=== PATIENT | female | born 1965 | race Two or more races ===

== ENCOUNTER → 2020-09-02 08:30 | Outpatient (REF) | payer MEDICARE, MEDICAID, SELFPAY ==
--- NOTE | 2020-09-02 | NM_ITS ---
EXAMINATION: RADIONUCLIDE SOLID FOOD GASTRIC EMPTYING 4-HOUR STUDY CLINICAL INFORMATION: Epigastric pain. COMPARISON: No previous gastric emptying study is available for comparison. TECHNIQUE: A standard meal consisting of 4 oz of Egg Beaters brand tagged with 980 microcuries Tc-99m Sulfur Colloid, 8 oz water and 2 slices of toast with jelly was administered orally to the patient. Images were obtained using a dual head gamma camera in the anterior and posterior projections over of the stomach immediately post ingestion and at hourly intervals up to 3 hours post ingestion. Images were not obtained at 4 hours due to the minimal retention at 3 hours. The anterior and posterior counts at each time interval were averaged using the geometric mean and expressed as percentage of the immediate post ingestion counts. FINDINGS: There is good visualization of activity in the stomach immediately post ingestion. As the study progresses, there is good clearance of activity from the stomach and visualization of progressively increasing small bowel activity. By the end of the study, there is almost no retention noted in the stomach. Retention in the stomach at each time interval was: 1 hour 43% (normal 37%-90%) 2 hours 27% (normal 30%-60%) 3 hours 5% 4 hours (Not Obtained) (normal 0%-10%) IMPRESSION: Normal solid food gastric emptying study.
== END ==
LOC: HO.NUCMED 08:30
PROVIDERS: Visit Provider Internal Medicine Gastroenterology
DX: R10.13 Epigastric pain (principal)
CPT/HCPCS: 78264; A9541

== ENCOUNTER → 2020-09-06 08:20 | Outpatient (BNVA) | payer OTHER, SELFPAY | PROVIDERS: PCP Internal Medicine; Referring Provider Internal Medicine; Visit Provider Orthopaedic Surgery | DX: S83.231D Complex tear of medial meniscus, current injury, right knee, subsequent encounter (principal); S83.271D Complex tear of lateral meniscus, current injury, right knee, subsequent encounter; M23.8X1 Other internal derangements of right knee | CPT/HCPCS: 99214 ==

== ENCOUNTER 2020-09-15 06:44 | Day surgery (SDC) | payer OTHER, SELFPAY ==
--- NOTE | 2020-09-14 14:14 | HO.ANESPROP2 ---
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 Diabetes mellitus, type II History of hepatitis C History of transesophageal echocardiography (KATIA) HTN (hypertension) CAROL (obstructive sleep apnea) Palpitations Smoker Smokers' cough Vitamin D deficiency Family History Family History Father Pancreatic cancer Mother Breast cancer Hypertension Diabetes Surgical History Surgical History H/O tricuspid valve repair History of appendectomy History of cardiac cath History of cholecystectomy History of colonoscopy History of coronary artery bypass surgery History of tonsillectomy History of tubal ligation Social History Social History Alcohol intake: never Smoking Status: Current every day smoker Tobacco Type: Cigarette Years Smoked: 44 Advance Directives: No Current occupational status: unemployed 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 Meds Allergies Allergy/AdvReac Type Severity Reaction Status Date / Time varenicline [From CHANTIX] Allergy Unknown RASH Unverified 08/04/20 18:49 Home Medications Medication Instructions Recorded Confirmed Type albuterol sulfate 90 mcg/actuation 2 puff INHALATION Q4-6H PRN 08/17/20 History aerosol inhaler cholecalciferol (vitamin D3) 125 125 mcg PO DAILY 08/17/20 History mcg (5,000 unit) capsule duloxetine 20 mg capsule,delayed 20 mg PO BID 08/17/20 History release fluticasone propionate 110 1 puff INHALATION BID 08/17/20 History mcg/actuation HFA aerosol inhaler gabapentin 100 mg capsule 100 mg PO BEDTIME 08/17/20 History insulin glargine U-300 conc 300 60 unit SUBCUT DAILY 08/17/20 History unit/mL (3 mL) subcutaneous pen insulin lispro 100 unit/mL 5 unit SUBCUT TID 08/17/20 History subcutaneous cartridge lisinopril 10 mg tablet 10 mg PO DAILY 08/17/20 History lubiprostone 24 mcg capsule 24 mcg PO BID 08/17/20 History metoprolol succinate 100 mg 100 mg PO DAILY 08/17/20 History tablet,extended release 24 hr rosuvastatin 20 mg tablet 20 mg PO DAILY 08/17/20 History insulin lispro [Humalog U-100 15 unit SUBCUT TID 09/15/20 09/15/20 History Insulin] Exam Exam Date and Time: September 14, 2020 1414 Pertinent Lab Results Pertinent Lab Results: Laboratory Tests 12/17/19 12/17/19 08/16/20 08:05 08:05 14:44 WBC 9.0 Hgb 14.4 Hct 42.8 Plt Count 188 D Sodium 141 Potassium 4.9 Chloride 107 BUN 25 H Creatinine 1.64 H Narrative Narrative: EKG 12/25/19: SB, old inferior infarct ECHO 05/2020: Nml LV sys and diast function with mild LVH, Good Tricuspid valve repair, Nml RV sys pressure, No pericardial effusion Assessment and Plan Assessment Anesthesia Assessment: Chart Reviewed Documented by User: Anjel Dias MD 09/15/20 07:15 [facility] Past Medical History Medical History Atherosclerotic cardiovascular disease Bronchial asthma CAD (coronary artery disease) Chronic kidney disease 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 Diabetes mellitus, type II History of hepatitis C History of transesophageal echocardiography (KATIA) HTN (hypertension) CAROL (obstructive sleep apnea) Palpitations Smoker Smokers' cough Vitamin D deficiency Family History Family History Father Pancreatic cancer Mother Breast cancer Hypertension Diabetes Surgical History Surgical History H/O tricuspid valve repair History of appendectomy History of cardiac cath History of cholecystectomy History of colonoscopy History of coronary artery bypass surgery History of tonsillectomy History of tubal ligation Social History Social History Alcohol intake: never Smoking Status: Current every day smoker Tobacco Type: Cigarette Years Smoked: 44 Advance Directives: No Current occupational status: unemployed 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 Meds Allergies Allergy/AdvReac Type Severity Reaction Status Date / Time varenicline [From CHANTIX] Allergy Unknown RASH Unverified 08/04/20 18:49 Home Medications Medication Instructions Recorded Confirmed Type albuterol sulfate 90 mcg/actuation 2 puff INHALATION Q4-6H PRN 08/17/20 History aerosol inhaler cholecalciferol (vitamin D3) 125 125 mcg PO DAILY 08/17/20 History mcg (5,000 unit) capsule duloxetine 20 mg capsule,delayed 20 mg PO BID 08/17/20 History release fluticasone propionate 110 1 puff INHALATION BID 08/17/20 History mcg/actuation HFA aerosol inhaler gabapentin 100 mg capsule 100 mg PO BEDTIME 08/17/20 History insulin glargine U-300 conc 300 60 unit SUBCUT DAILY 08/17/20 History unit/mL (3 mL) subcutaneous pen insulin lispro 100 unit/mL 5 unit SUBCUT TID 08/17/20 History subcutaneous cartridge lisinopril 10 mg tablet 10 mg PO DAILY 08/17/20 History lubiprostone 24 mcg capsule 24 mcg PO BID 08/17/20 History metoprolol succinate 100 mg 100 mg PO DAILY 08/17/20 History tablet,extended release 24 hr rosuvastatin 20 mg tablet 20 mg PO DAILY 08/17/20 History insulin lispro [Humalog U-100 15 unit SUBCUT TID 09/15/20 09/15/20 History Insulin] Exam Airway Mallampati Class: II TM Dist: >3cm Neck ROM: Full Denture: Upper Loose/Missing/Broken Teeth: No Heart: rrr Lungs: nl Other: ao Assessment and Plan Assessment Anesthesia Assessment: Anesthesia Plan Discussed and Chart Reviewed Final Anesthetic Review NPO: Yes ASA Class: III Final Preanesthetic Review: No Changes in Pt Med Stat, Meds/Allgs Chart Reviewed, Consent Obtained/Reviewed and Anes Risks/Benef Reviewed Patient Risk: Intermediate Procedure Risk: Low Anesthetic Plan Anesthetic Plan: GA Disposition: Standard PACU
[2020-09-15] VITALS (12 sets, daily range): BP systolic 106–147; BP diastolic 67–82; PULSE 60–93; RESP 16; TEMP 35.8–36.3; O2SAT 92–99; BMI 39.3
--- NOTE | 2020-09-15 06:45 | MHC.SHP ---
Pre-Procedural Eval Section A The patient is an INPATIENT: No Changes since office visit: No Cold of Flu in the past 2 weeks, No New Medical Problems, No Changes in Medication and No Patient answered all questions The History & Physical has been completed within 30 days and I have reviewed it.: Yes Section B Chief Complaint: Medial and lateral Minicus tear of right knee Allergies: Allergies Allergy/AdvReac Type Severity Reaction Status Date / Time varenicline [From CHANTIX] Allergy Unknown RASH Unverified 08/04/20 18:49 Plan Patient has been examined and remains a candidate for the planned procedure
[2020-09-15 06:58] LABS: Glucose, Whole Blood 318 mg/dL (60-115)
--- NOTE | 2020-09-15 09:09 | PM.PRCOR ---
Brief Operative Note Date of procedure: 09/15/20 Pre-op diagnosis: ACL TEAR WITHMEDIAL AND LATERAL MENISCAL TEAR LEFT KNEE Post-op diagnosis: other (SAME WITH OSTEOARTHRITIS) Procedure: ARTHROSCOPIC SURGERY LEFT KNEE Anesthesia: GLMA Surgeon: Ally Dietz Estimated blood loss (mL): 0 Pathology: none sent Condition: stable Disposition: PACU
[2020-09-15] MEDS: oxyCODONE HCl Immed Release 5 MG TABLET PO ×2 (09:20→10:18)
[2020-09-15] MEDS: fentaNYL citrate/PF 100 MCG/2 ML VIAL 25 MCG IVPUSH ×2 (09:52→09:58)
--- NOTE | 2020-09-15 10:22 | HO.POSTANES ---
Post Anesthesia Evaluation Post Anesthesia Evaluation Vital Signs: Vital Signs Temp Pulse Resp BP Pulse Ox 09/15/20 10:00 64 16 109/72 95 09/15/20 09:58 16 09/15/20 09:52 16 09/15/20 09:45 67 16 143/67 H 96 09/15/20 09:30 60 16 129/71 95 09/15/20 09:15 67 16 128/72 96 09/15/20 09:10 70 16 147/81 H 95 09/15/20 09:05 69 16 135/77 92 09/15/20 09:00 96.5 F L 68 16 125/81 99 09/15/20 06:59 97 F 93 16 106/73 97 Anesthesia: General LMA Mental Status: Awake Pain Control: Satisfactory Nausea/Vomiting: None Hydration: Adequate Anesthesia-Related Issues: No Anes. Related Issues
--- NOTE | 2020-09-16 16:42 | OP_ITS ---
SURGEON: Ally Dietz MD PREOPERATIVE DIAGNOSIS: Anterior cruciate ligament tear with associated medial and lateral meniscal tears of the left knee. POSTOPERATIVE DIAGNOSIS: 1. Complex tearing of posterior horn of medial meniscus, left knee. 2. Complex tearing of posterior horn of lateral meniscus, left knee. 3. Anterior cruciate ligament tear, left knee. 4. Grade 3 injury, medial femoral condyle with grade 3 injury, tibial plateau medially; grade 4 injury, femoral sulcus and medial aspect anterior compartment, left knee. PROCEDURE PERFORMED: ESTIMATED BLOOD LOSS: COMPLICATIONS: ANESTHESIA: ASSISTANTS: SPECIMENS: PROCEDURES PERFORMED: 1. Partial medial meniscectomy, left knee. 2. Partial lateral meniscectomy, left knee. 3. Debridement of anterior cruciate ligament, left knee. 4. Debridement, left knee. CLINICAL NOTE: This lady who has had long-term problems with instability and pain and discomfort and lack of range of motion involving her left knee, comes in today with ongoing pain and discomfort that has failed nonoperative management. Therefore, after explaining the risks, benefits, and alternatives and answering her questions, it was mutually agreed upon to carry out the following procedure. MOTION: She has full range of motion. STABILITY. She has positive Cori and pivot shift. Collateral ligaments intact. DESCRIPTION OF PROCEDURE: PREPARATION: GA, standard technique, tourniquet to 300 mmHg for 20 minutes. INCISION: Superolateral, inferolateral, inferomedial, and stab incisions. SURGICAL TIME-OUT: The patient was identified, procedure confirmed, site confirmed. Medical analogy and history were reviewed. No preop antibiotics. No DVT prophylaxis. All other items were discussed and agreed upon. SYNOVIUM: Normal. SYNOVIAL FLUID: Clear. MEDIAL COMPARTMENT: There was complex tearing of the posterior horn of the meniscus including a piece that was split underneath the medial segment. This was all resected using a combination of handheld cutters and power shaver until there was no unstable portions of the meniscus and it had been contoured into a C-shape. In addition, there was grade 3 injury of the medial femoral condyle, which was debrided. There was grade 2, small area of grade 3 injury to the tibial articular surfaces. INTERCONDYLAR NOTCH: There was stump and scarring from the previous ACL tear. The PCL was intact. The ACL was debrided. LATERAL COMPARTMENT: The lateral meniscus had a complex tearing involving the posterior as well as the medial portion of the meniscus. This was resected using a combination of handheld cutters and power shaver to stable meniscus. The lateral femoral condyle was intact. The tibial articular surface had grade 2 fraying. The popliteus tendon was intact. ANTERIOR COMPARTMENT: Medial and lateral gutters clear. Suprapatellar pouch was clear. The patella itself had some grade 2 to 3 injury in the middle and medial facet. The femoral sulcus had some grade 2 to 3 femoral sulcus injury, but as extended on to the anterior aspect of the medial portion of the condyle, there was grade 3 with areas of grade 4 injury. This was all debrided off the articular cartilage and redundant synovial tissue. CLOSURE: 50:50 mix of 0.75% Marcaine with epinephrine and normal saline was injected into knee for a total of 30 mL. Steri-Strips and sterile dressing were then applied. RECOMMENDATIONS: 1. Restore motion strength. 2. Resume activity as tolerated. 3. Discharge today with prescription for Tylenol No. 3, 20 tablets. 4. Follow up in the office in 10 days' time. MD KARLO Salter/JESSICA / [id number]
--- NOTE | 2020-10-12 18:10 | OP_ITS ---
SURGEON: Ally Dietz MD PREOPERATIVE DIAGNOSIS: Anterior cruciate ligament deficient, right knee with medial meniscal tear. POSTOPERATIVE DIAGNOSIS: PROCEDURE PERFORMED: Debridement of right knee. ESTIMATED BLOOD LOSS: COMPLICATIONS: ANESTHESIA: ASSISTANTS: SPECIMENS: POSTOPERATIVE DIAGNOSES: 1. Anterior cruciate ligament tear, right knee with associated medial and lateral meniscal tear. 2. Osteoarthritis, right knee. CLINICAL NOTE: This lady has had ongoing problems with pain and discomfort involving her knee. She has failed nonoperative management. Investigations demonstrated that she likely had an ACL tear as well as meniscus pathology, and therefore, after explaining the risks, benefits, and alternatives and answering all her questions, it was mutually agreed upon to carry out the following procedure. MOTION: Full range of motion. STABILITY: Positive Cori, mild pivot shift. DESCRIPTION OF PROCEDURE: PREPARATION: GA, standard technique, tourniquet to 300 mmHg for 23 minutes. SURGICAL TIME-OUT: The patient was identified, procedure confirmed, site confirmed. Medical analogy and history reviewed. Preoperative antibiotics were given. Standard DVT prophylaxis was in place. All other items were discussed and agreed upon. INCISION: Superolateral, inferolateral, inferomedial, stab incisions. SYNOVIUM: Normal. SYNOVIAL FLUID: Clear. MEDIAL COMPARTMENT: There was complex tear and posterior horn of medial meniscus resected using a combination of handheld cutters and power shaver to stable meniscus. There was grade 3 fraying of the medial femoral condyle and this was debrided. The articular surface was on the tibial side shows some grade 2 wear as well. INTERCONDYLAR NOTCH: ACL was obviously torn. The stump was debrided. The PCL was intact. LATERAL COMPARTMENT: There was some small areas of grade 3 injury of the lateral femoral condyle. There was grade 2 softening of the tibial femoral condyle. There was complex tearing on the inner edge of the lateral meniscus, which was resected. ANTERIOR COMPARTMENT: Medial and lateral gutters clear. Suprapatellar pouch clear. There was grade 2 to 3 injury of the femoral sulcus as well as grade 2 to 3 injury of the patella. This was all debrided. CLOSURE: 50:50 mixture of 0.75% Marcaine with epinephrine and normal saline to a total of 30 mL was injected into the knee. Steri-Strips and sterile dressing were then applied. RECOMMENDATIONS: 1. Restore motion strength. 2. Resume activity as tolerated. 3. Discharge today with prescription for Tylenol No.3, 20 tablets. 4. Follow up in the office in 10 days' time. MD KARLO Salter/JESSICA / [phone]
== END 2020-09-15 10:51 | disposition home or self-care (01) ==
PROVIDERS: PCP Internal Medicine; Visit Provider Orthopaedic Surgery
PROC: (CPT 29870; principal; 2020-09-15 08:40)
DX: S83.231A Complex tear of medial meniscus, current injury, right knee, initial encounter (principal); S83.271A Complex tear of lateral meniscus, current injury, right knee, initial encounter; S83.511A Sprain of anterior cruciate ligament of right knee, initial encounter; M17.0 Bilateral primary osteoarthritis of knee; X58.XXXA Exposure to other specified factors, initial encounter; Y93.9 Activity, unspecified; Y92.9 Unspecified place or not applicable; Y99.8 Other external cause status; I25.10 Atherosclerotic heart disease of native coronary artery without angina pectoris; J45.909 Unspecified asthma, uncomplicated; E11.22 Type 2 diabetes mellitus with diabetic chronic kidney disease; I12.9 Hypertensive chronic kidney disease with stage 1 through stage 4 chronic kidney disease, or unspecified chronic kidney disease; N18.9 Chronic kidney disease, unspecified; G47.33 Obstructive sleep apnea (adult) (pediatric); F17.210 Nicotine dependence, cigarettes, uncomplicated; Z79.4 Long term (current) use of insulin; Z79.899 Other long term (current) drug therapy; Z79.51 Long term (current) use of inhaled steroids; Z86.19 Personal history of other infectious and parasitic diseases; Z90.49 Acquired absence of other specified parts of digestive tract
CPT/HCPCS: 29880; 29888; 82947; J0131; J0171; J2250; J2405; J3010

== ENCOUNTER → 2020-09-29 09:44 | Outpatient (BNVA) | payer OTHER, SELFPAY | PROVIDERS: PCP Internal Medicine; Referring Provider Internal Medicine; Visit Provider Physician Assistant | DX: M23.8X1 Other internal derangements of right knee (principal); M17.11 Unilateral primary osteoarthritis, right knee; S83.271D Complex tear of lateral meniscus, current injury, right knee, subsequent encounter; Z98.890 Other specified postprocedural states | CPT/HCPCS: 99212 ==

== ENCOUNTER → 2020-10-27 10:51 | Outpatient (BNVA) | payer OTHER, SELFPAY | PROVIDERS: PCP Internal Medicine; Visit Provider Physician Assistant | DX: M23.8X1 Other internal derangements of right knee (principal); M17.11 Unilateral primary osteoarthritis, right knee | CPT/HCPCS: 99212 ==

== ENCOUNTER 2020-11-01 14:00 | Outpatient (RCR) | payer OTHER, SELFPAY ==
--- NOTE | 2020-10-19 15:16 | MHC.PT.EP ---
[facility] [place] [facility] [place] [facility] [place] Office [address] [place] Burleson [address] [phone] F: [phone] F: [phone] F: [phone] F: [phone] Physical Therapy Plan of Care Date of Evaluation: 10/19/20 Date of Surgery: Diagnosis: complex tear of lateral meniscus, current injury, right knee Assessment: 55 y/o F s/p R knee arthroscopic debridement 09/06/2020. States her knee continues to hurt even after the surgery and she has pain, feeling of patella instability, and difficulty with rolling in bed, transitioning in chairs, walking, and stairs (step to pattern). She ambulates with a Thuasne brace and one axillary crutch. Of note, pt with PMH of HTN, CABG, DM and states she has patella subluxations often. Examination shows decreased knee AROM, decreased knee strength, hypermobility B patella, increased pain, and impaired gait pattern. Recommend PT 2x/week for 5 weeks to address impairments, implement HEP, and optimize functional mobility. Frequency and Duration: The patient will be seen 2x/week for 5 weeks Short Term Goals: 3 weeks: 1. I with HEP 2. Improve R knee AROM 0-115 3. Ambulate with no AD x 500' [employer] Assistant Goals: 5 weeks: 1. I with HEP and self management of sx 2. Pt will ascend/descend stairs in step through pattern and one rail 3. Pt will be able to ambulate with LRAD > 30 minutes and pain < 3/10 (IR: 2min) Treatment Plan: Modalities to reduce pain, spasms and effusion. Manual therapy to restore motion and function. Therapeutic exercise to improve strength and flexibility. Neuromuscular re-education for posture and balance. Therapeutic activities to return to functional activities of daily living. Please sign and return to therapist. Thank you for your referral.
--- NOTE | 2020-12-13 14:40 | MHC.PT.DC ---
[facility] [place] [facility] [place] Office [place] Office [address] [place] Burleson [address] [facility] [phone] F: [phone] F: [phone] F: [phone] F: [phone] Physical Therapy Discharge Report Diagnosis: complex tear of lateral meniscus, current injury, right knee Date of Surgery: Date of Evaluation: 10/19/20 Date of Discharge: 12/13/20 Treatments to Date: 3 Cancellations to Date: 5 No Shows to Date: 0 Discharge Status: Visit Non-compliance Discharge Summary: Pt d/c secondary to noncompliance with scheduling policy Electronically signed by: Jami Melendrez PT Please sign and return to therapist. Thank you for your referral.
== END 2020-12-13 14:41 | disposition other institution (70) ==
LOC: HO.PT 14:00
PROVIDERS: PCP Internal Medicine; Visit Provider Physician Assistant
DX: S83.271D Complex tear of lateral meniscus, current injury, right knee, subsequent encounter (principal)
CPT/HCPCS: 97110; 97140; 97162; 97530

== ENCOUNTER → 2020-11-15 14:29 | Outpatient (BNVA) | payer OTHER, SELFPAY | PROVIDERS: PCP Internal Medicine; Visit Provider Orthopaedic Surgery | DX: M25.561 Pain in right knee (principal) | CPT/HCPCS: 99212 ==

== ENCOUNTER → 2021-03-23 11:49 | Outpatient (BNVA) | payer OTHER, SELFPAY | PROVIDERS: PCP Internal Medicine; Referring Provider Internal Medicine; Visit Provider Nurse Practitioner Family | DX: R07.89 Other chest pain (principal); I25.10 Atherosclerotic heart disease of native coronary artery without angina pectoris; I10 Essential (primary) hypertension; Z95.1 Presence of aortocoronary bypass graft; Z98.890 Other specified postprocedural states | CPT/HCPCS: 93005; 99212 ==

== ENCOUNTER → 2021-05-02 09:18 | Outpatient (REF) | payer OTHER, SELFPAY ==
--- NOTE | ~2021-05-02 | NM_ITS ---
Myocardial perfusion study Indication: Chest pain to evaluate for myocardial ischemia Technique: The patient was brought in for a Lexiscan perfusion study on 05/02/2021. Patient performed low-level exercise and was injected 0.4 mg of Lexiscan intravenously. Within a minute of injection, 45 mCi of sestamibi was given intravenously. Images were obtained using the SPECT gamma camera interlaced with the gating device. Images were obtained in supine position. Resting perfusion study was performed on 05/03/2021. Patient was administered 45 mCi of sestamibi intravenously at rest. Images were then obtained in supine position. Images obtained with and without CT attenuation. Total DLP 179 mGy-cm. Images were processed with the software and compared side to side in short axis, horizontal long axis and vertical long axis views. Findings: The stress perfusion study showed nonattenuated images show mildly reduced uptake in the apex of the LV myocardium. Remainder of the LV myocardium is normally perfused. There is suggestion of hypertrophy. Attenuation corrected images show normal uptake of radiotracer in all segments of LV myocardium.. The gated study shows normal LV systolic function with calculated LVEF of 71%. LV cavity is normal in size. The gated study shows normal systolic wall thickening and contraction of segments. Resting study shows both attenuated as well as nonattenuated images show normal uptake of radiotracer in all segments of LV myocardium. Gating at rest reveals normal systolic wall motion with ejection fraction at 58%. The findings are consistent with attenuated corrected images show normal uptake of radiotracer in all segments myocardium.. NM/NM marguerite perf SPECT rest & str Impression: 1. Myocardial perfusion imaging study shows likely normal myocardial perfusion 2. Gated LVEF is 71% 3. Transient ischemic dilatation not present EKG is nondiagnostic for ischemia
--- NOTE | 2021-05-02 09:21 | CA_ITS ---
Acquisition Time: 2021-05-02 10:41:48 Total Exercise Time: 00:02:00 Test Indications: CP, SOB P[ALPITATIONS, SYNCOPE Medications: SEE CHART Protocol: LEXISCAN Max HR: 107 BPM 64% of Pred: 165 BPM Max BP: 132/082 mmHG Max Work Load: 1.0 METS Pharmacological stress test with Lexiscan injection, while sitting and kicking her left leg, with shortness of breath and mid chest pain post injection, without arrythmia, with normotensive response to injection, with nondiagnostic EKG for ischemia. In recovery she reported nausea , ongoing shortness of breath and chest pain that was treated with Aminophylline 75mg IVP to reverse Lexiscan with resolution of symptoms. Nuclear images pending. Test reviewed with Dr Hurst. Referred By: Barbara Cherry Overread By: BARBARA CHERRY
== END ==
LOC: HO.CARD 09:18
PROVIDERS: Visit Provider Nurse Practitioner Family
DX: R07.89 Other chest pain (principal)
CPT/HCPCS: 78452; 93017; A9500; J0280; J2785

== ENCOUNTER → 2021-05-11 14:22 | Outpatient (BNVA) | payer OTHER, SELFPAY | PROVIDERS: PCP Internal Medicine; Referring Provider Internal Medicine; Visit Provider Internal Medicine | DX: I25.10 Atherosclerotic heart disease of native coronary artery without angina pectoris (principal); I10 Essential (primary) hypertension; E11.8 Type 2 diabetes mellitus with unspecified complications; F17.200 Nicotine dependence, unspecified, uncomplicated; Z95.1 Presence of aortocoronary bypass graft; Z98.890 Other specified postprocedural states | CPT/HCPCS: 99212 ==

== ENCOUNTER → 2021-08-29 15:12 | Outpatient (BNVA) | payer OTHER, SELFPAY | PROVIDERS: PCP Internal Medicine; Referring Provider Internal Medicine; Visit Provider Nurse Practitioner Family | DX: R07.89 Other chest pain (principal); I10 Essential (primary) hypertension; Z95.1 Presence of aortocoronary bypass graft; Z98.890 Other specified postprocedural states | CPT/HCPCS: 99212 ==

== ENCOUNTER 2021-10-23 08:47 | Outpatient (REF) | payer OTHER, SELFPAY ==
--- NOTE | ~2021-10-23 | XR_ITS ---
EXAMINATION: XR KNEE, BILATERAL XR KNEE, RIGHT CLINICAL INFORMATION: Pain COMPARISON: 05/24/2020 TECHNIQUE: AP standing view of both knees. Lateral and sunrise views of the right knee. FINDINGS: Right knee: No fracture or subluxation. Mild medial compartment joint space narrowing. Small marginal osteophytes at the medial and patellofemoral compartments. Small joint effusion noted. Left knee: No acute fracture or subluxation. Mild medial compartment joint space narrowing. XR/XR knee RT 2V IMPRESSION: Mild degenerative changes of the right knee greatest at the medial compartment with small joint effusion. Mild medial compartment joint space narrowing of the left knee, similar to prior.
--- NOTE | ~2021-10-23 | XR_ITS ---
EXAMINATION: XR KNEE, BILATERAL XR KNEE, RIGHT CLINICAL INFORMATION: Pain COMPARISON: 05/24/2020 TECHNIQUE: AP standing view of both knees. Lateral and sunrise views of the right knee. FINDINGS: Right knee: No fracture or subluxation. Mild medial compartment joint space narrowing. Small marginal osteophytes at the medial and patellofemoral compartments. Small joint effusion noted. Left knee: No acute fracture or subluxation. Mild medial compartment joint space narrowing. XR/XR knee standing BI IMPRESSION: Mild degenerative changes of the right knee greatest at the medial compartment with small joint effusion. Mild medial compartment joint space narrowing of the left knee, similar to prior.
== END 2021-10-23 08:48 | disposition home or self-care (01) ==
LOC: HO.HOSX 08:47
PROVIDERS: Visit Provider Orthopaedic Surgery
DX: M17.31 Unilateral post-traumatic osteoarthritis, right knee (principal); E11.8 Type 2 diabetes mellitus with unspecified complications; Z95.1 Presence of aortocoronary bypass graft
CPT/HCPCS: 73560; 73565; 99212

== ENCOUNTER 2021-10-31 13:57 | Outpatient (REF) | payer OTHER, SELFPAY ==
[2021-10-31 15:02] LABS: Estimated Average Glucose 183 mg/dL
== END 2021-10-31 13:58 | disposition home or self-care (01) ==
LOC: HO.LAB 13:57
PROVIDERS: PCP Internal Medicine; Visit Provider Orthopaedic Surgery
DX: Z01.812 Encounter for preprocedural laboratory examination (principal)
CPT/HCPCS: 36415; 83036

== ENCOUNTER → 2021-11-06 14:08 | Outpatient (REF) | payer OTHER, SELFPAY ==
--- NOTE | 2021-11-06 14:11 | CA_ITS ---
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 The visually estimated ejection fraction is between 55-60%. - s/p tricuspid valve repair. Annular ring present, but not well seen. Mean gradient across the tricuspid valve 1-2mmHg. Overall, normal function. - There is a small loculated pericardial effusion overlying the right atrium. Findings Procedure Information Contrast agent, definity, is being given per protocol without apparent complications. Left Ventricle Normal left ventricular cavity size. There is mildly increased left ventricular wall thickness. The left ventricular systolic function is normal. The visually estimated ejection fraction is between 55-60%. There is no evidence of regional wall motion abnormalities. E/E prime ratio is between 8 and 15 consistent with indeterminate filling pressures. Evidence suggests grade I (mild) diastolic dysfunction. Right Ventricle The right ventricle was not well visualized. Normal right ventricular cavity size. Atria Both atria are normal in size. Aortic Valve The aortic valve was not well visualized. There is no aortic valve stenosis. There is no aortic valve regurgitation. Mitral Valve The mitral valve appears normal. There is trace mitral valve regurgitation. There is no mitral valve stenosis. Pulmonic Valve The pulmonic valve was not well visualized. Tricuspid Valve There is trace tricuspid valve regurgitation. The pulmonary artery systolic pressure is normal. s/p tricuspid valve repair. Annular ring present, but not well seen. Mean gradient across the tricuspid valve 1-2mmHg. Overall, normal function. Great Vessels The aortic annulus, sinuses of valsalva, and asc aorta are normal in size. Venous The inferior vena cava is normal in size and collapses greater than 50% with inspiration. Pericardium/Pleural There is a small loculated pericardial effusion overlying the right atrium. There are no definitive echocardiographic findings of tamponade physiology. Prior Study Comparison No significant change compared to prior study dated: 06/08/2020. (pericardial effusion described in prior studies). Measurements 2D Linear Measurements IVSd: 1.38 0.6-0.9/0.6-1.0 cm LVIDd: 4.38 3.9-5.3/4.2-5.9 cm LVIDd Index: 1.99 2.4-3.2/2.2-3.1 cm/m2 LVIDs: 2.87 2.0-3.6 cm LVPWd: 1.26 0.7-1.1 cm Ao Root: 3.20 2.1-3.5 cm LA Diam: 4.20 2.7-3.8/3.0-4.0 cm LAIDs Index: 1.91 1.5-2.3 cm/m2 LV Mass: 272.40 67-162/88-224 g LV Mass Index: 123.82 43-95/49-115 g/m2 LVOT Diam: 2.30 3.0+(-)1.3 cm 2D Systolic Function EF 4C: 60.80 >55% EF 2C: 50.00 >55% EF BiP: 53.40 >55% Mitral Valve MV Pk E: 0.76 MV PK A: 0.63 MV Decel Time: 182.00 E/A: 1.20 E'Lateral: 9.90 E'Medial: 4.68 E/E' Med: 16.30 E/E' Lat: 7.70 PHT: 53.00 MVA PHT: 4.15 Decel Loving: 4.19 Aortic Valve AoV Pk Evans: 1.24 AoV Mn Evans: 0.78 AoV VTI: 0.30 AoV Pk Grad: 6.00 Aov Mn Grad: 3.00 SARMAD Cont.VTI: 2.45 LVOT LVOT Pk Evans: 0.67 LVOT Mn Evans: 0.42 LVOT VTI: 0.18 LVOT Pk Grad: 2.00 LVOT Mn Grad: 1.00 LVOT Diam: 2.30 LVOT Area: 4.15 Diastolic Function MV Pk E: 0.76 MV Pk A: 0.63 E/A: 1.20 E'Medial: 4.68 E/E' Med: 16.30 E' Laterial: 9.90 E/E' Lat: 7.70 Tricuspid Valve TV Pk Evans: 1.03 TV Mn Evans: 0.56 TV Pk Grad: 4.00 TV Mn Grad: 2.00 TR Pk Evans: 2.03 TR Pk Grad: 16.00 Great Vessels Aorta Ao Root-2D: 3.20 2.0-3.7 cm Ao Asc: 3.20 2.1-3.4 cm Pulmonary Valve PV Pk Evans: 1.05 Peak PV Grad: 4.00 Updated in Other Vendor System with Status of Final Jeffry Hurst MD electronically signed on 11/08/2021 4:33:15 PM with status of Final
== END ==
LOC: HO.CARD 14:08
PROVIDERS: Visit Provider Clinical Nurse Specialist Psychiatric/Mental Health, Child & Adolescent
DX: Z98.890 Other specified postprocedural states (principal)
CPT/HCPCS: 93306; Q9957

== ENCOUNTER → 2022-02-09 09:28 | Outpatient (BNVA) | payer OTHER, SELFPAY | PROVIDERS: PCP Internal Medicine; Visit Provider Internal Medicine Gastroenterology | DX: Z13.89 Encounter for screening for other disorder (principal) | CPT/HCPCS: Q3014 ==

== ENCOUNTER 2022-03-08 14:25 | Outpatient (REF) | payer OTHER, SELFPAY ==
[2022-03-08 14:47] LABS: MANUAL DIFF FLAG NO
[2022-03-08 15:18] LABS: Basophils Absolute Auto 0.1 X10*3/uL (0.0-0.2); Basophils Percent Auto 0.6 % (0-2); Eosinophils Absolute Auto 0.2 X10*3/uL (0.0-0.4); Eosinophils Percent Auto 2.7 % (0-4); Hematocrit 43.9 % (37.0-47.0); Hemoglobin 13.7 g/dl (12.0-16.0); Imm Gran Abs Auto 0.04 X10*3/uL (0.00-0.03); Imm Gran Pct Auto 0.5 % (0.0-0.4); Lymphocytes Absolute Auto 2.2 X10*3/uL (1.2-4.9); Lymphocytes Percent Auto 27.3 % (20-40); Mean Corpuscular HGB Conc 31.2 g/dl (31.0-35.0); Mean Corpuscular Hemoglobin 29.5 pg (27.0-33.0); Mean Corpuscular Volume 94.6 fL (80.0-98.0); Mean Platelet Volume 10.5 fL (9.4-12.3); Monocytes Absolute Auto 0.7 X10*3/uL (0.1-1.2); Monocytes Percent Auto 8.6 % (2-11); Neutrophils Absolute Auto 4.9 x10*3/uL (2.0-8.3); Neutrophils Percent Auto 60.3 % (45-73); Platelet Count 276 X10*3/uL (160-400); Red Blood Count 4.64 X10*6/uL (4.20-5.50); Red Cell Distribution Width 14.6 % (11.0-16.0); White Blood Count 8.1 X10*3/uL (4.8-10.8)
[2022-03-08 15:31] LABS: Alanine Aminotransferase 74 U/L (0-31); Albumin Level 3.5 g/dL (3.5-5.0); Alkaline Phosphatase 142 U/L (39-117); Anion Gap 12 (12-20); Aspartate Amino Transferase 51 U/L (5-31); Bilirubin Direct 0.2 mg/dL (0.0-0.5); Bilirubin Total 0.5 mg/dL (0.0-1.0); Blood Urea Nitrogen 22 mg/dL (9-16); Carbon Dioxide 29 mmol/L (22-29); Chloride 106 mmol/L (96-108); Cholesterol 243 mg/dL; Estimated Glomerular Filt Rate 37; Glucose Random 130 mg/dL (60-115); HDL Cholesterol 40 mg/dL; LDL Cholesterol Calculated 161 mg/dl; Potassium 5.1 mmol/L (3.3-5.1); Sodium 142 mmol/L (135-145); Total Protein 6.8 g/dL (6.5-8.0); Triglycerides 210 mg/dL
[2022-03-11 12:40] LABS: Anti Nuclear Antibody Screen NEGATIVE (NEGATIVE)
[2022-03-12 15:11] LABS: Gliadin Deamidated IgG Ab <1.0 U/mL; Transglutaminase Ab IgG <1.0 U/mL; Transglutaminase IgA <1.0 U/mL
[2022-03-12 21:26] LABS: Immunoglobulin G Subclass 1 628 mg/dL (382-929); Immunoglobulin G Subclass 2 240 mg/dL (241-700); Immunoglobulin G Subclass 3 58 mg/dL (22-178); Immunoglobulin G Total 921 mg/dL (600-1640)
[2022-03-12 23:16] LABS: Zinc 47 mcg/dL (60-130)
== END 2022-03-08 14:26 | disposition home or self-care (01) ==
LOC: HO.LAB 14:25
PROVIDERS: PCP Internal Medicine; Visit Provider Internal Medicine Gastroenterology
DX: K85.90 Acute pancreatitis without necrosis or infection, unspecified (principal); G89.29 Other chronic pain; R10.33 Periumbilical pain; R79.82 Elevated C-reactive protein (CRP); K75.81 Nonalcoholic steatohepatitis (NASH); E78.5 Hyperlipidemia, unspecified; I25.10 Atherosclerotic heart disease of native coronary artery without angina pectoris
CPT/HCPCS: 36415; 80053; 80061; 82248; 82784; 84630; 85025; 86038; 86039; 86258; 86364

== ENCOUNTER → 2022-04-12 12:26 | Outpatient (BNVA) | payer OTHER, SELFPAY | PROVIDERS: PCP Internal Medicine; Visit Provider Orthopaedic Surgery | DX: S83.512A Sprain of anterior cruciate ligament of left knee, initial encounter (principal); S83.242A Other tear of medial meniscus, current injury, left knee, initial encounter; S83.412A Sprain of medial collateral ligament of left knee, initial encounter | CPT/HCPCS: 99212 ==

== ENCOUNTER → 2022-04-18 08:21 | Outpatient (REF) | payer OTHER, SELFPAY ==
--- NOTE | ~2022-04-18 | NM_ITS ---
EXAMINATION: BILIARY TRACT IMAGING STUDY CLINICAL INFORMATION: Acute pancreatitis without necrosis or infection, unspecified. Patient states gallbladder removed at age 12 due to stones. Technologist notes right abdominal scar visible.. COMPARISON: No previous biliary scan is available for comparison. CT scan of the abdomen and pelvis dated 09/21/2015 is available for comparison.. MRI of the abdomen and pelvis dated 08/16/2020 is also available for comparison. TECHNIQUE: Serial gamma scintillation camera images were obtained over the abdomen for a total observation period of 60 minutes following the intravenous administration of 5 mCi Tc-99m Mebrofenin. FINDINGS: There is good concentration of activity in the liver by 5 minutes post injection. Biliary activity is visualized by 15 minutes. Small bowel is well visualized by 30 minutes. The gallbladder has been resected and is not visualized. At the end of the study, 60 minutes post injection there is good clearance of activity from the liver and visualization of diffuse small bowel activity. CT scan of the abdomen and pelvis dated 09/21/2015 shows absence of the gallbladder and multiple metallic surgical clips in the gallbladder bed. NM/NM hepatobiliary wo pharm IMPRESSION: Normal biliary scan status post cholecystectomy. The common bile duct is patent. Liver function appears normal.
== END ==
LOC: HO.NUCMED 08:21
PROVIDERS: PCP Internal Medicine; Visit Provider Internal Medicine Gastroenterology
DX: K85.90 Acute pancreatitis without necrosis or infection, unspecified (principal)
CPT/HCPCS: 78226; A9537

== ENCOUNTER → 2022-04-20 11:56 | Outpatient (BNVA) | payer OTHER, SELFPAY | PROVIDERS: Visit Provider Orthopaedic Surgery | DX: S83.512A Sprain of anterior cruciate ligament of left knee, initial encounter (principal); S83.242A Other tear of medial meniscus, current injury, left knee, initial encounter; S83.412A Sprain of medial collateral ligament of left knee, initial encounter | CPT/HCPCS: 99212 ==

== ENCOUNTER → 2022-05-15 12:38 | Outpatient (BNVA) | payer OTHER, SELFPAY | PROVIDERS: PCP Internal Medicine; Referring Provider Internal Medicine; Visit Provider Internal Medicine | DX: I25.10 Atherosclerotic heart disease of native coronary artery without angina pectoris (principal); I10 Essential (primary) hypertension; E11.8 Type 2 diabetes mellitus with unspecified complications; F17.210 Nicotine dependence, cigarettes, uncomplicated; Z95.1 Presence of aortocoronary bypass graft; Z98.890 Other specified postprocedural states | CPT/HCPCS: 93005; 99212 ==

== ENCOUNTER → 2022-05-18 11:55 | Outpatient (BNVA) | payer OTHER, SELFPAY | PROVIDERS: PCP Internal Medicine; Visit Provider Orthopaedic Surgery | DX: S83.512A Sprain of anterior cruciate ligament of left knee, initial encounter (principal); S83.242A Other tear of medial meniscus, current injury, left knee, initial encounter; S83.412A Sprain of medial collateral ligament of left knee, initial encounter | CPT/HCPCS: 99212 ==

== ENCOUNTER 2022-06-06 15:00 | Outpatient (RCR) | payer OTHER, SELFPAY ==
--- NOTE | 2022-05-15 14:51 | MHC.PT.EP ---
[facility] [place] Office [place] Office [place] Office [address] [place] Burleson [address] [phone] F: [phone] F: [phone] F: [phone] F: [phone] Physical Therapy Plan of Care Date of Evaluation: Date of Surgery: N/A Diagnosis: patellofemoral instability of left knee with pain (RC) Assessment: pt presents to physical therapy with pain, decreased range of motion, decreased strength, impaired functional mobility, impaired postural awareness, and gait deviations. pt is a good candidate for skilled PT due to age, potential remediation of impairments, typical disease/condition progression and prognosis, comorbidities, and motivation. pt would benefit from tailored strengthening and stretching exercise program, functional training, gait training, postural re-training, neuromuscular re-education, modalities as needed for pain, equipment safety demonstration. Frequency and Duration: The patient will be seen 1x/wk for 4 wks Short Term Goals: pt will be I w/ HEP to promote self-management of condition. pt will improve L quad strength by 1 MMT grade to promote improved ability to ascend/descend stairs. Snf Goals: pt will report a statistically significant improvement in self-reported outcome measure, LEFI, to promote return to PLOF. pt will ascend/descend 5 stairs w/ reciprocal pattern using railing to promote ease in accessing primary living spaces. Treatment Plan: Modalities to reduce pain, spasms and effusion. Manual therapy to restore motion and function. Therapeutic exercise to improve strength and flexibility. Neuromuscular re-education for posture and balance. Therapeutic activities to return to functional activities of daily living. Electronically signed by: Rayna Cantrell PT, DPT Please sign and return to therapist. Thank you for your referral.
--- NOTE | 2022-06-22 12:54 | MHC.PT.DC ---
[facility] [place] Office [place] Office [place] Office [address] [place]leson 140 [facility] [phone] F: [phone] F: [phone] F: [phone] F: [phone] Physical Therapy Discharge Report Diagnosis: patellofemoral instability of left knee with pain (RC) Date of Surgery: N/A Date of Evaluation: 05/15/22 Date of Discharge: 06/22/22 Treatments to Date: 3 Cancellations to Date: 2 No Shows to Date: 0 Discharge Status: Patient Elected to Stop Recommend MD Follow-up Discharge Summary: The patient called to cancel her last appointment secondary to falling down the stairs again. She was going to follow-up with the emergency room. She has not scheduled any further appointments in the past two weeks. She is being discharged from this physical therapy plan of care with recommendation to follow-up with knee injury. Electronically signed by: Rayna Cantrell PT, DPT Please sign and return to therapist. Thank you for your referral.
== END 2022-06-22 12:54 | disposition home or self-care (01) ==
LOC: HO.PT 15:00
PROVIDERS: Visit Provider Orthopaedic Surgery
DX: M25.362 Other instability, left knee (principal); M25.562 Pain in left knee
CPT/HCPCS: 97110; 97161; 97530

== ENCOUNTER 2022-06-11 12:19 | Emergency (ER) | payer OTHER, SELFPAY ==
--- NOTE | ~2022-06-11 | XR_ITS ---
EXAMINATION: RIGHT HAND, RIGHT TOES CLINICAL INFORMATION: Fall with pain in the great toe as well as snuff box COMPARISON: None TECHNIQUE: 3 views right great toe, 3 views right hand FINDINGS: Right hand: No significant bone, joint or soft tissue abnormality is seen. No fractures are detected. Right great toe: No significant bone joint or soft tissue abnormality is seen. No fracture is detected. XR/XR hand RT 2V IMPRESSION: No evidence of an acute osseous injury.
--- NOTE | ~2022-06-11 | XR_ITS ---
EXAMINATION: RIGHT HAND, RIGHT TOES CLINICAL INFORMATION: Fall with pain in the great toe as well as snuff box COMPARISON: None TECHNIQUE: 3 views right great toe, 3 views right hand FINDINGS: Right hand: No significant bone, joint or soft tissue abnormality is seen. No fractures are detected. Right great toe: No significant bone joint or soft tissue abnormality is seen. No fracture is detected. XR/XR toe RT min 2V IMPRESSION: No evidence of an acute osseous injury.
--- NOTE | ~2022-06-11 | CT_ITS ---
EXAMINATION: CT HEAD WITHOUT CONTRAST CT CERVICAL SPINE WITHOUT CONTRAST CLINICAL INFORMATION: Fall downstairs, head strike. COMPARISON: None TECHNIQUE: Contiguous axial imaging was performed from the skull base to vertex without intravenous administration of contrast. Contiguous axial imaging was performed from the upper chest through the skull base without intravenous administration of contrast. Coronal and sagittal reformats were obtained at the acquisition workstation. This CT examination was performed using dose optimization techniques as appropriate, variously including the following: *Automated exposure control *Adjustment of mA and/or kV according to patient size (this includes techniques or standardized protocols for targeted exams where dose is matched to indication/reason for exam; i.e. extremities or head) *Use of iterative reconstruction technique DLP: 758 mGy-cm FINDINGS: Head: There is no evidence of acute intracranial hemorrhage or edematous territorial infarction. A few foci of hypoattenuation in the periventricular and deep white matter are consistent with mild microangiopathy. Sidhu-white matter differentiation is preserved. The ventricles are normal in size and configuration. No evidence for obstructive hydrocephalus. No abnormal mass effect or midline shift. No extra-axial fluid collections. No acute soft tissue or osseous abnormalities. The mastoid air cells and paranasal sinuses are clear. Cervical Spine: The atlantooccipital and atlantoaxial articulations remain well aligned. Straightening of the normal cervical lordosis. Otherwise, there is anatomic alignment of the vertebral bodies and posterior elements. No evidence of acute fracture or subluxation. Mild cervical spondylosis. There is no prevertebral soft tissue swelling. The thyroid gland and remaining cervical soft tissues are normal in appearance. The lung apices demonstrate no abnormalities. CT/CT cervical spine wo con IMPRESSION: No acute intracranial pathology. No acute cervical spine fracture or malalignment.
--- NOTE | ~2022-06-11 | XR_ITS ---
EXAMINATION: XR RIBS, BILATERAL CLINICAL INFORMATION: Fell down stairs with rib pain COMPARISON: Chest radiograph 12/17/2019 TECHNIQUE: 4 views of the bilateral ribs were obtained. FINDINGS: Patient status post median sternotomy with surgical clips in the gallbladder fossa. Lungs are clear. No consolidation, pneumothorax, or pleural effusion. The cardiomediastinal silhouette and pulmonary vasculature are normal. Osseous structures are unremarkable. Ribs are intact. No fractures are identified. XR/XR ribs BI min 4V w CXR1V IMPRESSION: No evidence of a rib fracture
[2022-06-11 12:24] VITALS: BP 158/92; PULSE 63; RESP 18; TEMP 37.2; O2SAT 96; BMI 44.4
--- NOTE | 2022-06-11 18:26 | ED_ITS ---
HPI - Fall General Chief Complaint: Fall Stated Complaint: Fall T-1/L Rib pain/L&R knee pain Time Seen by Provider: 06/11/22 12:29 Source: patient Mode of arrival: ambulatory Limitations: no limitations History of Present Illness HPI Narrative: Patient comes to the emergency room complaining of a fall. Patient states that she has weak knees chronically, patient states that she has a brace on her left knee, currently recovering from an ACL tear. Patient states that her knees bent awkwardly sideways which caused a fall. Patient states she landed hard on the right side of her body. At this time, patient complaining mostly of rib pain bilaterally, great toe pain on the right foot, some pain on the right hand. Patient states she did hit her head but did not lose consciousness, patient is not on blood thinners. Patient complaining of mild bilateral neck pain, no C- spine tenderness. Related Data Home Medications Medication Instructions Recorded Confirmed albuterol sulfate 90 mcg/actuation 2 puff inhalation Q4-6H PRN 08/17/20 05/15/22 aerosol inhaler Wheezing duloxetine 20 mg capsule,delayed 20 mg PO BID 08/17/20 05/15/22 release (Cymbalta) fluticasone propionate 110 1 puff inhalation BID 08/17/20 05/15/22 mcg/actuation HFA aerosol inhaler gabapentin 100 mg capsule 100 mg PO BEDTIME 08/17/20 05/15/22 insulin glargine U-300 conc 300 60 unit subcut DAILY 08/17/20 05/15/22 unit/mL (3 mL) subcutaneous pen (Toujeo Max U-300 SoloStar) insulin lispro 100 unit/mL 5 unit subcut TID 08/17/20 05/15/22 subcutaneous cartridge (Humalog U-100 Insulin) lisinopril 10 mg tablet 10 mg PO DAILY 08/17/20 05/15/22 metoprolol succinate 100 mg 100 mg PO DAILY 08/17/20 05/15/22 tablet,extended release 24 hr insulin lispro 100 unit/mL 15 unit subcut TID 09/15/20 05/15/22 subcutaneous solution (Humalog U-100 Insulin) atorvastatin 40 mg tablet 40 mg PO BEDTIME 08/29/21 05/15/22 empagliflozin 10 mg tablet 0 mg PO 08/29/21 05/15/22 (Jardiance) hydralazine 25 mg tablet 25 mg PO TID 08/29/21 05/15/22 insulin glargine 100 unit/mL unit subcut 08/29/21 05/15/22 subcutaneous solution (Lantus U-100 Insulin) pantoprazole 40 mg tablet,delayed 40 mg PO DAILY 08/29/21 05/15/22 release aripiprazole 5 mg tablet 5 mg PO DAILY 02/09/22 05/15/22 Previous Rx's Medication Instructions Recorded aspirin 81 mg tablet,delayed 81 mg PO DAILY #90 tabs 10/16/21 release (Adult Aspirin Regimen) lubiprostone 24 mcg capsule 24 mcg PO BID #90 caps 02/09/22 (Amitiza) Allergies Allergy/AdvReac Type Severity Reaction Status Date / Time varenicline [From CHANTIX] Allergy Unknown RASH Verified 05/15/22 12:48 Review of Systems Review of Systems: Constitutional : No Weight loss, No Fever, No Chills, No Night Sweats, No Fatigue, No Malaise ENT/Mouth : No Hearing loss, No Ear Pain, No Nasal Congestion, No Sinus Pain, No Hoarseness, No sore throat, No Rhinorrhea, No Swallowing Difficulty Eyes: No Eye Pain, No Swelling, No Redness, No Foreign Body, No Discharge, No Vision Changes Cardiovascular : No Chest Pain, No SOB, No Dyspnea on Exertion, No Orthopnea, No Edema, No Palpitations Respiratory : No Cough, No Sputum, No Wheezing, No Smoke Exposure, No Dyspnea Gastrointestinal : No Nausea, No Vomiting, No Diarrhea, No Constipation, No abdominal Pain, No Hematochezia, No Melena Genitourinary : no irregular bleeding, No Dysuria, No Urinary Frequency, No Hematuria, No Urinary Incontinence, No Urgency, No Flank Pain, No Urinary Flow Changes, No Hesitancy Musculoskeletal : Complaining of chronic bilateral knee pain, complaining of upper back pain, rib pain, thumb pain, toe pain on the right side. 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 Diabetes mellitus, type II History of hepatitis C History of transesophageal echocardiography (KATIA) HTN (hypertension) CAROL (obstructive sleep apnea) Palpitations Smoker Smokers' cough Vitamin D deficiency Surgical History H/O tricuspid valve repair History of appendectomy History of cardiac cath History of cholecystectomy History of colonoscopy History of coronary artery bypass surgery History of tonsillectomy History of tubal ligation Family History Family History Father Pancreatic cancer Mother Breast cancer Hypertension Diabetes Social History Social History (Updated 05/15/22 @ 12:49 by ARETHA Coleman) Alcohol intake: never Patient Tobacco Use Status: Current everyday Tobacco user Cigarettes Per Day: 7 Years Smoked: 44 Current occupational status: unemployed 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 Physical Exam Vital Signs: Vital Signs: Last Vital Signs Temp 98.9 F 06/11/22 12:24 Pulse 63 06/11/22 12:24 Resp 18 06/11/22 12:24 BP 158/92 H 06/11/22 12:24 Pulse Ox 96 06/11/22 12:24 O2 Del Method 06/11/22 12:24 BMI result Body Mass Index 44.4 Const: Other: Appearance: Alert. Oriented X3. No acute distress. Eyes: Pupils equal, round and reactive to light. ENT: Pharynx normal. Neck: Normal inspection. Neck supple. No lymph nodes noted. No crepitus, no C- spine tenderness, normal range of motion with flexion and extension CVS: Normal heart rate and rhythm. Pulses normal. Normal S1 and S2 Respiratory: No respiratory distress. Breath sounds normal. No Wheezing. No rales, pain to palpation over the ribs on the right side Abdomen: Soft and nontender. No rigidity. No distention. Skin: Skin warm and dry. Normal skin color. Normal skin turgor. Extremities: No lower extremity edema. Patient has a knee brace on the left leg. Patient is able to walk, has 1 crutch to help her. Patient complaining of pain with thumb flexion over the snuffbox. Denies pain over the palm of the hand. Also, patient complaining of pain in the 1st toe and bruising. Neuro: Oriented X 3. No motor deficit. No sensory deficit. Moving all extremities. No slurred speech. CN 2 through 12 grossly intact Psych: calm, cooperative, normal affect Course Course Course Narrative: Patient's head CT, cervical spine CT and ribs x-ray are within normal limits. Toes and fingers x-rays are pending. X-rays of the thumb and the foot are negative. Patient does have a bit of snuffbox tenderness. Patient will be placed on a splint, instructed to follow- up with orthopedics. MDM - Fall Imaging Data cervical and head CT: Radiologist's impression: FINDINGS: Head: There is no evidence of acute intracranial hemorrhage or edematous territorial infarction. A few foci of hypoattenuation in the periventricular and deep white matter are consistent with mild microangiopathy. Sidhu-white matter differentiation is preserved. The ventricles are normal in size and configuration. No evidence for obstructive hydrocephalus. No abnormal mass effect or midline shift. No extra-axial fluid collections. No acute soft tissue or osseous abnormalities. The mastoid air cells and paranasal sinuses are clear. Cervical Spine: The atlantooccipital and atlantoaxial articulations remain well aligned. Straightening of the normal cervical lordosis. Otherwise, there is anatomic alignment of the vertebral bodies and posterior elements. No evidence of acute fracture or subluxation. Mild cervical spondylosis. There is no prevertebral soft tissue swelling. The thyroid gland and remaining cervical soft tissues are normal in appearance. The lung apices demonstrate no abnormalities. CT/CT cervical spine wo con IMPRESSION: No acute intracranial pathology. No acute cervical spine fracture or malalignment. right toe and thumb CT: Radiologist's impression: FINDINGS: Right hand: No significant bone, joint or soft tissue abnormality is seen. No fractures are detected. Right great toe: No significant bone joint or soft tissue abnormality is seen. No fracture is detected.? XR/XR hand RT 2V IMPRESSION: No evidence of an acute osseous injury.? Discharge Plan Discharge Clinical Impression: Fall, Multiple contusions Patient Disposition: Home, Self-Care Instructions: Foot Contusion (ED) Additional Instructions: Please follow-up with your primary care physician tomorrow. If you have any worsening or new symptoms, please return to the emergency room or call 911 Prescriptions: No Action aspirin [Adult Aspirin Regimen] 81 mg tablet,delayed release (DR/EC) 81 mg PO DAILY Qty: 90 3RF insulin lispro [Humalog U-100 Insulin] 100 unit/mL Solution 15 unit SUBCUT TID metoprolol succinate 100 mg tablet extended release 24 hr 100 mg PO DAILY gabapentin 100 mg capsule 100 mg PO BEDTIME albuterol sulfate 90 mcg/actuation HFA aerosol inhaler 2 puff inhalation Q4-6H PRN (Reason: Wheezing) fluticasone propionate 110 mcg/actuation HFA aerosol inhaler 1 puff inhalation BID Toujeo Max U-300 SoloStar 300 unit/mL (3 mL) insulin pen 60 unit subcut DAILY duloxetine [Cymbalta] 20 mg capsule,delayed release(DR/EC) 20 mg PO BID Humalog U-100 Insulin 100 unit/mL cartridge 5 unit subcut TID lisinopril 10 mg tablet 10 mg PO DAILY atorvastatin 40 mg tablet 40 mg PO BEDTIME hydralazine 25 mg tablet 25 mg PO TID pantoprazole 40 mg tablet,delayed release (DR/EC) 40 mg PO DAILY Lantus U-100 Insulin 100 unit/mL solution subcut Jardiance 10 mg tablet 0 mg PO aripiprazole 5 mg tablet 5 mg PO DAILY Amitiza 24 mcg capsule 24 mcg PO BID Qty: 90 3RF Referrals: Natalio Harman PA-C [Physician [employer]] - 2 days
== END 2022-06-11 20:16 | disposition home or self-care (01) ==
PROVIDERS: Emergency Provider Emergency Medicine; PCP Internal Medicine
DX: S80.11XA Contusion of right lower leg, initial encounter (principal); S70.12XA Contusion of left thigh, initial encounter; S70.11XA Contusion of right thigh, initial encounter; M54.2 Cervicalgia; R51.9 Headache, unspecified; R07.89 Other chest pain; M54.50 Low back pain, unspecified; M79.642 Pain in left hand; M79.641 Pain in right hand; W01.0XXA Fall on same level from slipping, tripping and stumbling without subsequent striking against object, initial encounter; Y93.9 Activity, unspecified; Y92.009 Unspecified place in unspecified non-institutional (private) residence as the place of occurrence of the external cause; Y99.9 Unspecified external cause status; F17.210 Nicotine dependence, cigarettes, uncomplicated; Z71.6 Tobacco abuse counseling; Z79.899 Other long term (current) drug therapy
CPT/HCPCS: 70450; 71111; 72125; 73120; 73660; 99282; 99284

== ENCOUNTER → 2022-07-05 10:01 | Outpatient (BNVA) | payer OTHER, SELFPAY | PROVIDERS: PCP Internal Medicine; Visit Provider Orthopaedic Surgery | DX: S83.512D Sprain of anterior cruciate ligament of left knee, subsequent encounter (principal); S83.412D Sprain of medial collateral ligament of left knee, subsequent encounter; S83.242D Other tear of medial meniscus, current injury, left knee, subsequent encounter; M79.644 Pain in right finger(s) | CPT/HCPCS: 99212 ==

== ENCOUNTER 2022-07-09 13:28 | Emergency (ER) | payer OTHER, SELFPAY ==
[2022-07-09 13:33] VITALS: BP 145/82; PULSE 98; RESP 18; TEMP 36.6; O2SAT 98; BMI 42.7
[2022-07-09 14:10] LABS: Appearance Urine Clear; Color Urine Yellow; Glucose Urine UA >=1000 mg/dL (Negative); Leukocyte Esterase Urine Negative (Negative); Nitrite Urine Negative (Negative); PH 5.5 (5.0-8.0); Specific Gravity - Urine >= 1.030 (1.005-1.025); Urine Blood Negative (Negative); Urine Ketones Negative (Negative); Urine Protein Negative (Neg-Trace)
[2022-07-09 14:22] LABS: Bacteria Urine 1+ (None Seen); Hyaline Casts Urine 0-2 /LPF (0-2); RBC Urine 0-2 /HPF (0-2); WBC Urine 0-5 /HPF (0-5)
[2022-07-09 21:09] VITALS: BP 137/75; PULSE 79; RESP 16; TEMP 36.7; O2SAT 97
--- NOTE | 2022-07-09 21:17 | ED_ITS ---
HPI - Abdominal Pain General Chief Complaint: Abdominal Pain Stated Complaint: Abd pain Time Seen by Provider: 07/09/22 21:17 Source: patient Mode of arrival: ambulatory Limitations: no limitations History of Present Illness HPI narrative: right upper quadrant abdominal pain for the past few days. In the past she has had this before, prior cholecsytectomy. No fever or vomiting. Patient has been told that she has had a fatty liver and has had a past history of Hepatitis C that has been treated. Patient with current nausea and back pain MD elicited complaint: abdominal pain Onset (ago): day(s) Pain Consistency: constant Location: RUQ Severity: moderate Quality: aching Radiation: R flank and back Exacerbating factors: eating Associated symptoms: nausea Related Data Home Medications Medication Instructions Recorded Confirmed albuterol sulfate 90 mcg/actuation 2 puff inhalation Q4-6H PRN 08/17/20 05/15/22 aerosol inhaler Wheezing duloxetine 20 mg capsule,delayed 20 mg PO BID 08/17/20 05/15/22 release (Cymbalta) fluticasone propionate 110 1 puff inhalation BID 08/17/20 05/15/22 mcg/actuation HFA aerosol inhaler gabapentin 100 mg capsule 100 mg PO BEDTIME 08/17/20 05/15/22 insulin glargine U-300 conc 300 60 unit subcut DAILY 08/17/20 05/15/22 unit/mL (3 mL) subcutaneous pen (Toujeo Max U-300 SoloStar) insulin lispro 100 unit/mL 5 unit subcut TID 08/17/20 05/15/22 subcutaneous cartridge (Humalog U-100 Insulin) lisinopril 10 mg tablet 10 mg PO DAILY 08/17/20 05/15/22 metoprolol succinate 100 mg 100 mg PO DAILY 08/17/20 05/15/22 tablet,extended release 24 hr insulin lispro 100 unit/mL 15 unit subcut TID 09/15/20 05/15/22 subcutaneous solution (Humalog U-100 Insulin) atorvastatin 40 mg tablet 40 mg PO BEDTIME 08/29/21 05/15/22 empagliflozin 10 mg tablet 0 mg PO 08/29/21 05/15/22 (Jardiance) insulin glargine 100 unit/mL unit subcut 08/29/21 05/15/22 subcutaneous solution (Lantus U-100 Insulin) pantoprazole 40 mg tablet,delayed 40 mg PO DAILY 08/29/21 05/15/22 release aripiprazole 5 mg tablet 5 mg PO DAILY 02/09/22 05/15/22 lubiprostone 24 mcg capsule 24 mcg PO BID PRN Constipation 07/11/22 (Amitiza) Previous Rx's Medication Instructions Recorded aspirin 81 mg tablet,delayed 81 mg PO DAILY #90 tabs 10/16/21 release (Adult Aspirin Regimen) Allergies Allergy/AdvReac Type Severity Reaction Status Date / Time varenicline [From CHANTIX] Allergy Unknown RASH Verified 07/16/22 09:44 Review of Systems Constitutional: Reports no additional constitutional complaints Eyes: Reports no additional eye complaints Denies dizziness Cardiovascular: Reports no additional cardiovascular complaints Respiratory: Reports as per HPI Gastrointestinal: Reports no additional gastrointestinal complaints Genitourinary: Reports no additional female genitourinary complaints Musculoskeletal: Reports no additional musculoskeletal complaints Skin/Breast: Denies rash Reports system reviewed and no additional complaints, except as documented, Denies dizziness and Denies Sensory deficit (Neuro) Psychiatric: Denies anxiety PMFSH Past Medical History Medical History Atherosclerotic cardiovascular disease Bronchial asthma CAD (coronary artery disease) Chronic kidney disease 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 Diabetes mellitus, type II History of hepatitis C History of transesophageal echocardiography (KTAIA) HTN (hypertension) CAROL (obstructive sleep apnea) Palpitations Smoker Smokers' cough Vitamin D deficiency Surgical History H/O tricuspid valve repair History of appendectomy History of cardiac cath History of cholecystectomy History of colonoscopy History of coronary artery bypass surgery History of tonsillectomy History of tubal ligation Family History Family History Father Pancreatic cancer Mother Breast cancer Hypertension Diabetes Social History Social History Alcohol intake: never Patient Tobacco Use Status: Current everyday Tobacco user Tobacco use type: Cigarette Cigarettes Per Day: 5 Years Smoked: 44 Current occupational status: unemployed 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 Physical Exam ED Vital Signs: Vital Signs - 24 hr 07/09/22 13:33 07/09/22 21:09 Temperature 98 F 98.0 F Pulse Rate 98 79 Respiratory Rate 18 16 Blood Pressure 145/82 H 137/75 Pulse Oximetry 98 97 Oxygen Delivery Method Room Air Room Air BMI result Body Mass Index 42.7 Const Other: obese, right wrist in in cast, left knee in immobilizer. Nutritional Appearance: average body habitus Orientation/consciousness: oriented to person and patient oriented x3 Limitations: no limitations HENMT Head: Yes normal to inspection Ears: external ears normal General nose exam: Normal external nose present Mouth: Normal oral and palatal mucosa present and oropharynx normal Throat: Yes posterior oropharynx normal Eyes General: appearance normal, both eyes and all related structures Neck Neck: Yes normal visual inspection Chest Chest palpation & inspection: normal inspection of the chest Resp Auscultation: clear to auscultation bilaterally Cardio Jugular venous distension: no JVD Rate: regular rate Rhythm: regular rhythm Heart sounds: S1 normal heart sound present and S2 normal heart sound present GI Other: obese, slight upper quadrant tenderness Palpation (GI): Soft to palpation Auscultation: normal bowel sounds General: Yes no CVA tenderness Back/Spine/Pelvis Back: no CVA tenderness Skin General skin exam: no rashes or lesions noted Neuro General: oriented to person and patient oriented x3 Cranial nerves: Yes CN's II-XII intact bilaterally Motor exam (neuro): 5/5 motor strength present throughout Sensory Exam: No Sensory deficit (Neuro) Extrem General: Yes normal to inspection Psych Appearance: grossly normal Course Reevaluation(s) Reevaluation #1: patient with chronic renal insufficiency, chronic hepatitis likely secondary to fatty liver. Will dc on protonix for gastric burning. Time: 22:53 MDM - Abdominal Pain Lab Data Result diagrams: 07/09/22 22:06 07/09/22 22:06 Labs: Lab Results 07/09/22 07/09/22 07/09/22 Range/Units 14:03 22:06 22:06 WBC 10.6 (4.8-10.8) X10*3/uL RBC 5.43 (4.20-5.50) X10*6/uL Hgb 16.1 H (12.0-16.0) g/dl Hct 49.6 H (37.0-47.0) % MCV 91.3 (80.0-98.0) fL MCH 29.7 (27.0-33.0) pg MCHC 32.5 (31.0-35.0) g/dl RDW 15.3 (11.0-16.0) % Plt Count 276 (160-400) X10*3/uL MPV 10.4 (9.4-12.3) fL Immature Gran % (Auto) 0.3 (0.0-0.4) % Neut % (Auto) 68.1 (45-73) % Lymph % (Auto) 22.1 (20-40) % [place] % (Auto) 7.7 (2-11) % Eos % (Auto) 1.1 (0-4) % Baso % (Auto) 0.7 (0-2) % Lymph # (Auto) 2.3 (1.2-4.9) X10*3/uL [place] # (Auto) 0.8 (0.1-1.2) X10*3/uL Eos # (Auto) 0.1 (0.0-0.4) X10*3/uL Baso # (Auto) 0.1 (0.0-0.2) X10*3/uL Abs Immat Gran (auto) 0.03 (0.00-0.03) X10*3/uL Absolute Neuts (auto) 7.2 (2.0-8.3) x10*3/uL Absolute Nucleated RBC 0.000 (0.0-0.012) X10*3/uL Nucleated RBC % (auto) 0.0 (0.0-0.2) /100WBC Sodium 138 (135-145) mmol/L Potassium 4.8 (3.3-5.1) mmol/L Chloride 105 (96-108) mmol/L Carbon Dioxide 22 (22-29) mmol/L Anion Gap 16 (12-20) BUN 22 H (9-16) mg/dL Creatinine 1.52 H (0.5-1.4) mg/dL Estim Creat Clear Calc 54.6 Estimated GFR 35 Random Glucose 214 H (60-115) mg/dL Calcium 9.6 (8.4-10.2) mg/dL Total Bilirubin 0.6 (0.0-1.0) mg/dL AST 37 H (5-31) U/L ALT 61 H (0-31) U/L Alkaline Phosphatase 155 H (39-117) U/L Total Protein 7.2 (6.5-8.0) g/dL Albumin 3.7 (3.5-5.0) g/dL Lipase 95 H (8-78) U/L Urine Color Yellow Urine Appearance Clear Urine pH 5.5 (5.0-8.0) Ur Specific [place] >= 1.030 H (1.005-1.025) Urine Protein Negative (Neg-Trace) mg/dL Urine Glucose (UA) >=1000 H (Negative) mg/dL Urine Ketones Negative (Negative) mg/dL Urine Blood Negative (Negative) Urine Nitrite Negative (Negative) Ur Leukocyte Esterase Negative (Negative) Urine RBC 0-2 (0-2) /HPF Urine WBC 0-5 (0-5) /HPF Ur Squamous Epith Cells 6-10 (0-2) /HPF Urine Bacteria 1+ (None Seen) Hyaline Casts 0-2 (0-2) /LPF Discharge Plan Discharge Clinical Impression: Fatty liver, Hepatitis, Chronic renal insufficiency Patient Disposition: Home, Self-Care Instructions: Liver Disease Diet (DC), Non-Alcoholic Fatty Liver Disease (ED) Prescriptions: No Action aspirin [Adult Aspirin Regimen] 81 mg tablet,delayed release (DR/EC) 81 mg PO DAILY Qty: 90 3RF insulin lispro [Humalog U-100 Insulin] 100 unit/mL Solution 15 unit SUBCUT TID lubiprostone [Amitiza] 24 mcg capsule 24 mcg PO BID PRN (Reason: Constipation) metoprolol succinate 100 mg tablet extended release 24 hr 100 mg PO DAILY gabapentin 100 mg capsule 100 mg PO BEDTIME albuterol sulfate 90 mcg/actuation HFA aerosol inhaler 2 puff inhalation Q4-6H PRN (Reason: Wheezing) fluticasone propionate 110 mcg/actuation HFA aerosol inhaler 1 puff inhalation BID Toujeo Max U-300 SoloStar 300 unit/mL (3 mL) insulin pen 60 unit subcut DAILY duloxetine [Cymbalta] 20 mg capsule,delayed release(DR/EC) 20 mg PO BID Humalog U-100 Insulin 100 unit/mL cartridge 5 unit subcut TID lisinopril 10 mg tablet 10 mg PO DAILY atorvastatin 40 mg tablet 40 mg PO BEDTIME pantoprazole 40 mg tablet,delayed release (DR/EC) 40 mg PO DAILY Lantus U-100 Insulin 100 unit/mL solution subcut Jardiance 10 mg tablet 0 mg PO aripiprazole 5 mg tablet 5 mg PO DAILY Referrals: Shania Gonzales MD [Primary Care Provider] - Interventions: ED Discharge Assessment Last Done: 07/09/22 23:11 Discharge Date/Time: 07/09/22 23:11
[2022-07-09 22:11] LABS: MANUAL DIFF FLAG NO
[2022-07-09 22:18] LABS: Basophils Absolute Auto 0.1 X10*3/uL (0.0-0.2); Basophils Percent Auto 0.7 % (0-2); Eosinophils Absolute Auto 0.1 X10*3/uL (0.0-0.4); Eosinophils Percent Auto 1.1 % (0-4); Hematocrit 49.6 % (37.0-47.0); Hemoglobin 16.1 g/dl (12.0-16.0); Imm Gran Abs Auto 0.03 X10*3/uL (0.00-0.03); Imm Gran Pct Auto 0.3 % (0.0-0.4); Lymphocytes Absolute Auto 2.3 X10*3/uL (1.2-4.9); Lymphocytes Percent Auto 22.1 % (20-40); Mean Corpuscular HGB Conc 32.5 g/dl (31.0-35.0); Mean Corpuscular Hemoglobin 29.7 pg (27.0-33.0); Mean Corpuscular Volume 91.3 fL (80.0-98.0); Mean Platelet Volume 10.4 fL (9.4-12.3); Monocytes Absolute Auto 0.8 X10*3/uL (0.1-1.2); Monocytes Percent Auto 7.7 % (2-11); Neutrophils Absolute Auto 7.2 x10*3/uL (2.0-8.3); Neutrophils Percent Auto 68.1 % (45-73); Platelet Count 276 X10*3/uL (160-400); Red Blood Count 5.43 X10*6/uL (4.20-5.50); Red Cell Distribution Width 15.3 % (11.0-16.0); White Blood Count 10.6 X10*3/uL (4.8-10.8)
[2022-07-09] MEDS: Ondansetron ODT 4 MG TAB.RAPDIS TRANSLINGU (22:29)
[2022-07-09 22:30] LABS: Alanine Aminotransferase 61 U/L (0-31); Albumin Level 3.7 g/dL (3.5-5.0); Alkaline Phosphatase 155 U/L (39-117); Anion Gap 16 (12-20); Aspartate Amino Transferase 37 U/L (5-31); Bilirubin Total 0.6 mg/dL (0.0-1.0); Blood Urea Nitrogen 22 mg/dL (9-16); Calcium 9.6 mg/dL (8.4-10.2); Carbon Dioxide 22 mmol/L (22-29); Chloride 105 mmol/L (96-108); Creatinine Clr Calc Pharmacy 54.6; Estimated Glomerular Filt Rate 35; Glucose Random 214 mg/dL (60-115); Lipase 95 U/L (8-78); Potassium 4.8 mmol/L (3.3-5.1); Sodium 138 mmol/L (135-145); Total Protein 7.2 g/dL (6.5-8.0)
[2022-07-09 23:11] VITALS: BP 139/78; PULSE 79; RESP 16; TEMP 36.7; O2SAT 97
== END 2022-07-09 23:11 | disposition home or self-care (01) ==
PROVIDERS: Emergency Provider Emergency Medicine; PCP Internal Medicine
DX: K76.0 Fatty (change of) liver, not elsewhere classified (principal); B18.2 Chronic viral hepatitis C; E11.22 Type 2 diabetes mellitus with diabetic chronic kidney disease; I12.9 Hypertensive chronic kidney disease with stage 1 through stage 4 chronic kidney disease, or unspecified chronic kidney disease; N18.2 Chronic kidney disease, stage 2 (mild); K21.9 Gastro-esophageal reflux disease without esophagitis; R10.11 Right upper quadrant pain; F17.210 Nicotine dependence, cigarettes, uncomplicated; E66.9 Obesity, unspecified; Z68.41 Body mass index [BMI] 40.0-44.9, adult; Z79.4 Long term (current) use of insulin; Z79.02 Long term (current) use of antithrombotics/antiplatelets; Z79.899 Other long term (current) drug therapy
CPT/HCPCS: 36415; 80053; 81001; 83690; 85025; 99283; 99284

== ENCOUNTER 2022-07-11 09:38 | Day surgery (SDC) | payer OTHER, SELFPAY ==
[2022-07-11] VITALS (13 sets, daily range): BP systolic 103–147; BP diastolic 63–87; PULSE 70–92; RESP 14–20; TEMP 36.1–36.8; O2SAT 94–99; BMI 43.5
[2022-07-11 10:24] LABS: Glucose, Whole Blood 142 mg/dL (60-115)
--- NOTE | 2022-07-11 10:42 | MHC.SHP ---
Pre-Procedural Eval Section A Date of Service: 07/11/22 The patient is an INPATIENT: No Changes since office visit: Yes Patient answered all questions; No Cold of Flu in the past 2 weeks, No New Medical Problems and No Changes in Medication The History & Physical has been completed within 30 days and I have reviewed it.: Yes Section B Chief Complaint: Other tear of medial meniscus, current injury, lef Allergies: Allergies Allergy/AdvReac Type Severity Reaction Status Date / Time varenicline [From CHANTIX] Allergy Unknown RASH Verified 07/11/22 10:14 Plan I have reviewed the history and physical and performed a pertinent physical examination on my patient. No changes have occurred unless specified.
[2022-07-11] MEDS: Lactated Ringers 1,000 ML 50 ML IVCONT (10:50)
--- NOTE | 2022-07-11 11:01 | HO.ANESPROP2 ---
HPI - Anesthesia Eval Consult details Narrative: 56 F for left knee ACL CABG in 2016 CKD , Asthma/COPD , smoker Right abdominal pain , 2 days ago , went to the ED . Pain resolved now . PCP ordered CT scan , results pending but OK to proceed with procedure . Case also discussed with the surgeon . 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 (Acute) Osteoarthritis of right knee (Acute) Chest discomfort (Acute) Status post tricuspid valve repair (Acute) Essential hypertension (Acute) Type 2 diabetes mellitus with unspecified complications (Acute) Patellar instability of right knee (Acute) Recurrent pancreatitis (Acute) Dislocation of left patella (Acute) Patellofemoral instability of left knee with pain (Acute) Left ACL tear (Acute) Tear of medial meniscus of left knee (Acute) Traumatic tear of medial collateral ligament of left knee (Acute) Right wrist pain (Acute) Pain of right thumb (Acute) History of coronary artery bypass surgery (Acute) H/O tricuspid valve repair (Acute) Past Medical History Medical History Atherosclerotic cardiovascular disease Bronchial asthma CAD (coronary artery disease) Chronic kidney disease 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 Diabetes mellitus, type II History of hepatitis C History of transesophageal echocardiography (KATIA) HTN (hypertension) CAROL (obstructive sleep apnea) Palpitations Smoker Smokers' cough Vitamin D deficiency Family History Family History Father Pancreatic cancer Mother Breast cancer Hypertension Diabetes Family history of problems with anesthesia: No Surgical History Surgical History H/O tricuspid valve repair History of appendectomy History of cardiac cath History of cholecystectomy History of colonoscopy History of coronary artery bypass surgery History of tonsillectomy History of tubal ligation History of Problems with Anesthesia: No Social History Social History Alcohol intake: never Patient Tobacco Use Status: Current everyday Tobacco user Tobacco use type: Cigarette Cigarettes Per Day: 5 Years Smoked: 44 Current occupational status: unemployed 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 Meds Allergies Allergy/AdvReac Type Severity Reaction Status Date / Time varenicline [From CHANTIX] Allergy Unknown RASH Verified 07/11/22 10:14 Active Medications: Current Medications Lactated Ringer's (Lr) 1,000 mls @ 50 mls/hr IVCONT .Q20H LINDY Last Admin: 07/11/22 10:50 Dose: 50 mls/hr Home Medications Medication Instructions Recorded Confirmed Last Taken Type albuterol sulfate 90 mcg/actuation 2 puff inhalation Q4-6H PRN 08/17/20 05/15/22 Unknown History aerosol inhaler Wheezing duloxetine 20 mg capsule,delayed 20 mg PO BID 08/17/20 05/15/22 Unknown History release (Cymbalta) fluticasone propionate 110 1 puff inhalation BID 08/17/20 05/15/22 Unknown History mcg/actuation HFA aerosol inhaler gabapentin 100 mg capsule 100 mg PO BEDTIME 08/17/20 05/15/22 Unknown History insulin glargine U-300 conc 300 60 unit subcut DAILY 08/17/20 05/15/22 Unknown History unit/mL (3 mL) subcutaneous pen (Toujeo Max U-300 SoloStar) insulin lispro 100 unit/mL 5 unit subcut TID 08/17/20 05/15/22 Unknown History subcutaneous cartridge (Humalog U-100 Insulin) lisinopril 10 mg tablet 10 mg PO DAILY 08/17/20 05/15/22 Unknown History metoprolol succinate 100 mg 100 mg PO DAILY 08/17/20 05/15/22 07/11/22 08:00 History tablet,extended release 24 hr insulin lispro 100 unit/mL 15 unit subcut TID 09/15/20 05/15/22 09/15/20 05:30 History subcutaneous solution (Humalog 7 units U-100 Insulin) atorvastatin 40 mg tablet 40 mg PO BEDTIME 08/29/21 05/15/22 Unknown History empagliflozin 10 mg tablet 0 mg PO 08/29/21 05/15/22 Unknown History (Jardiance) insulin glargine 100 unit/mL unit subcut 08/29/21 05/15/22 Unknown History subcutaneous solution (Lantus U-100 Insulin) pantoprazole 40 mg tablet,delayed 40 mg PO DAILY 08/29/21 05/15/22 07/11/22 08:00 History release aripiprazole 5 mg tablet 5 mg PO DAILY 02/09/22 05/15/22 Unknown History lubiprostone 24 mcg capsule 24 mcg PO BID PRN Constipation 07/11/22 Unknown History (Amitiza) Exam Exam Date and Time: July 11, 2022 1101 Height,Weight and Vital Signs: Height 5 ft 6 in Weight 122.47 kg Last Vital Signs Temp 96.9 F 07/11/22 10:14 Pulse 92 07/11/22 10:14 Resp 17 07/11/22 10:14 BP 147/77 H 07/11/22 10:14 Pulse Ox 96 07/11/22 10:14 O2 Del Method 07/11/22 10:14 Pertinent Lab Results Pertinent Lab Results: Laboratory Tests 07/11/22 10:21 POC Glucose 142 H Airway Mallampati Class: III TM Dist: >3cm Neck ROM: Full Loose/Missing/Broken Teeth: Yes Heart: S1,S2 Lungs: b/l breath sounds Assessment and Plan Assessment Anesthesia Assessment: Anesthesia Plan Discussed and Chart Reviewed Final Anesthetic Review Family History of Problems with Anesthesia: No History of Problems with Anesthesia: No NPO: Yes ASA Class: III Final Preanesthetic Review: Meds/Allgs Chart Reviewed, Consent Obtained/Reviewed and Anes Risks/Benef Reviewed Patient Risk: Intermediate Procedure Risk: Intermediate Anesthetic Plan Anesthetic Plan: GA and Regional Block Disposition: Standard PACU
--- NOTE | 2022-07-11 13:52 | P.BOP_ITS ---
Brief Operative Note Date of Service: 07/11/22 Pre-op diagnosis: Left ACL rupture and MMT Post-op diagnosis: same Procedure: Left ACL reconstruction with medial meniscus repair Implants: Awan and Nephew fast pass meniscal cinch x 2 Awan and Nephew ACL suture button with 11x30 tibial interference screw Awan and Nephew Allograft Surgeon: Guerrero Sanabria MD Anesthesia: GETA and regional Was an Healthcare Applications Analyst used for this Procedure?: Yes Healthcare Applications Analyst: Lorrie Aranda Estimated blood loss (mL): 25 IV fluids (mL): 1,000 Pathology: none sent Condition: stable Disposition: PACU
[2022-07-11] MEDS: HYDROmorphone HCl 0.5 MG/0.5 ML SYRINGE 0.25 MG IVPUSH ×4 (14:01→14:41)
[2022-07-11] MEDS: oxyCODONE HCl Immed Release 5 MG TABLET PO (14:06)
--- NOTE | 2022-07-13 16:35 | P.OP_ITS ---
Operative Note Operative Note Date of Service: 07/11/22 Narrative: Date of Service: 07/11/22 Pre-op diagnosis: Left ACL rupture and MMT Post-op diagnosis: same Procedure: Left ACL reconstruction with medial meniscus repair Implants: Awan and Nephew fast pass meniscal cinch x 2 Awan and Nephew ACL suture button with 11x30 tibial interference screw Awan and Nephew Allograft Surgeon: Guerrero Sanabria MD Anesthesia: GETA and regional Was an Reinforcing Rod Layer used for this Procedure?: Yes Reinforcing Rod Layer: Lorrie Aranda Estimated blood loss (mL): 25 IV fluids (mL): 1,000 Pathology: none sent Condition: stable Disposition: PACU Procedure in detail: Patient was brought to the operating room placed supine on the arthroscopic table and prepped and draped in standard sterile fashion. A time-out was called to identify proper site proper procedure proper surgeon and IV antibiotics per weight were administered. Under anesthesia she had a + pivot shift. I began by exsanguinating the limb and insufflating tourniquet to 300 mm Hg. Then made a standard anterolateral stab incision. The knee was insufflated with water and 30 degree arthroscope was placed. There was grade 1 fibrillations of the patella but overall suprapatellar pouch and the gutters were clean. I descended into the medial compartment where I made my far medial portal under direct visualization. There was an unstable bucket handle medial meniscus tear in the red/white zone. The root was intact and there were sacattered grade 1 changes of the MFC. I used two Fast Pass meniscal cinches (Awan and Nephew) to repair the tear through the AM portal. I was satisfied with the extent of repair. I then examined the notch where there was a + empty wall sign and an intact PCL. I debrided the stump and acl footprint and performed a limited notchplasty. I then, through a far AM portal and a 7mm behind the back guide, drilled a k-wire through the LFC with the knee in hyper-flexion. I measured the tunnel as a 31 and then after sizing the allograft on the back table drilled a 25 mm tunnel with an 11 mm reamer. The final 6 mm was drilled iwth a 4.5 reamer. I then pulled a suture through the femoral tunnel and turned my attention to the tibia. I did examine the femoral tunnel and was satisfied with the posterior wall and its location low and medial at the anatomic footprint. I placed my tibial drill guide in 55 deg and, through a anteromedial inc just lateral to the tibial tubercle placed a k-wire into the notch exiting just medial to the anterior horn insertion of the lateral meniscus. I then over-reamed with an 11 reamer. I cleaned the tunnels up with a shaver. On the back table I whip-stitched the allograft to fit through an 11 aperture and attached the femoral button to the looped end. I placed the graft on 15lbs of tension for 10 minutes. I then passed the allograft through the tibial tunnel and femoral tunnel and flipped the button. I cycled the knee about 10-15 cycles and then placed a tibial interference screw with the knee in hyper-extension while holding the graft taught. Once I was satisfied that the interference screw was buried I examined the ACL and the medial meniscus repair. The repair was stable and the ACL was not impinging and there was a negative pivot shift. I then removed all i nstrumentation and closed the incisions with nylon. Patient was then placed in sterile dressings and a hinged knee brace. She was then extubated brought recovery room stable condition. There were no known complications.
== END 2022-07-11 15:36 | disposition home or self-care (01) ==
LOC: HO.SSS 09:39
PROVIDERS: PCP Internal Medicine; Visit Provider Orthopaedic Surgery
PROC: (CPT 27428; principal; 2022-07-11 12:00)
DX: S83.242A Other tear of medial meniscus, current injury, left knee, initial encounter (principal); S83.512A Sprain of anterior cruciate ligament of left knee, initial encounter; S83.412A Sprain of medial collateral ligament of left knee, initial encounter; W19.XXXA Unspecified fall, initial encounter; Y93.9 Activity, unspecified; Y92.9 Unspecified place or not applicable; Y99.8 Other external cause status; I25.10 Atherosclerotic heart disease of native coronary artery without angina pectoris; F17.210 Nicotine dependence, cigarettes, uncomplicated; Z95.1 Presence of aortocoronary bypass graft; G47.33 Obstructive sleep apnea (adult) (pediatric); J45.909 Unspecified asthma, uncomplicated; E55.9 Vitamin D deficiency, unspecified; E11.22 Type 2 diabetes mellitus with diabetic chronic kidney disease; I12.9 Hypertensive chronic kidney disease with stage 1 through stage 4 chronic kidney disease, or unspecified chronic kidney disease; N18.9 Chronic kidney disease, unspecified; Z79.4 Long term (current) use of insulin; Z79.82 Long term (current) use of aspirin; Z79.899 Other long term (current) drug therapy
CPT/HCPCS: 29882; 29888; 82947; A4649; C1713; C1769; J0171; J0690; J1100; J1170; J2250; J2405; J2550; J2795; J3010

== ENCOUNTER 2022-09-24 11:20 | Outpatient (REF) | payer OTHER, SELFPAY | END 2022-09-24 11:21 | disposition home or self-care (01) | LOC: HO.HOSX 11:20 | PROVIDERS: Visit Provider Orthopaedic Surgery | DX: Z13.89 Encounter for screening for other disorder (principal) ==

== ENCOUNTER 2022-10-09 14:00 | Outpatient (REF) | payer OTHER, SELFPAY ==
--- NOTE | ~2022-10-09 | XR_ITS ---
EXAMINATION: XR HAND, RIGHT CLINICAL INFORMATION: Pain COMPARISON: None TECHNIQUE: PA, lateral, and oblique views of the right hand. FINDINGS: There is loss of PIP and DIP joint space without bony erosive changes. No fracture, dislocation or subluxation seen. The soft tissues are normal. XR/XR hand RT min 3V IMPRESSION: Mild degenerative changes PIP and DIP joints without visible acute fracture or dislocation seen.
== END 2022-10-09 14:01 | disposition home or self-care (01) ==
LOC: HO.HOSX 14:00
PROVIDERS: Visit Provider Orthopaedic Surgery
DX: M79.641 Pain in right hand (principal)
CPT/HCPCS: 73130

== ENCOUNTER → 2022-10-10 09:53 | Outpatient (BNVA) | payer OTHER, SELFPAY | PROVIDERS: PCP Internal Medicine; Visit Provider Orthopaedic Surgery | DX: M18.11 Unilateral primary osteoarthritis of first carpometacarpal joint, right hand (principal); M79.641 Pain in right hand | CPT/HCPCS: 99212 ==

== ENCOUNTER → 2022-11-26 13:50 | Outpatient (BNVA) | payer OTHER, SELFPAY | PROVIDERS: Visit Provider Physician Assistant | DX: S83.242D Other tear of medial meniscus, current injury, left knee, subsequent encounter (principal); S83.512D Sprain of anterior cruciate ligament of left knee, subsequent encounter; S83.412D Sprain of medial collateral ligament of left knee, subsequent encounter | CPT/HCPCS: 99212 ==

== ENCOUNTER 2022-12-12 13:00 | Outpatient (RCR) | payer OTHER, SELFPAY ==
--- NOTE | 2022-07-19 15:10 | MHC.PT.EP ---
[facility] [place] [facility] [place] [facility] [place] [facility] [address] [place] [address] [phone] F: [phone] F: [phone] F: [phone] F: [phone] Physical Therapy Plan of Care Date of Evaluation: Date of Surgery: 07/11/2022 Diagnosis: s/p L knee ACL repair and medial meniscus repair Assessment: Patient is a 56 y.o female referred to physical therapy by KERLINE Peters s/p L ACL repair and meniscus repair performed on 07/11/2022. She presents with pain, swelling, limited ROM, weakness, impairments in functional mobility; gait, stair use, needs assist at home with ADLs. She requires skilled physical therapy to reinforce education, restore full mobility, strength and functional mobility following orthopedic surgery. Frequency and Duration: The patient will be seen 2x/week 8 weeks Short Term Goals: 4 weeks Patient is able to achieve AROM in L knee flexion 90 degrees to be able to perform sit to stand. with both LEs Patient presents with reduced swelling 3cm at mid patella to improve mobility of knee. Patient presents with 0 degrees of knee extension and able to ambulate with heel to toe gait pattern in unlocked brace. Fpc Goals: 8 weeks Patient presents with L quad strength 4/5 to be able to perform reciprocal stairs. Patient presents with L knee flexion AROM 120 degrees to bend/squat to low surface. Treatment Plan: Modalities to reduce pain, spasms and effusion. Manual therapy to restore motion and function. Therapeutic exercise to improve strength and flexibility. Neuromuscular re-education for posture and balance. Therapeutic activities to return to functional activities of daily living. Electronically signed by: Andres Cummings, PT, DPT Please sign and return to therapist. Thank you for your referral.
--- NOTE | 2023-01-10 10:48 | MHC.PT.DC ---
[facility] [place] [facility] [place] [facility] [place] Office [address] [place] [address] [facility] [phone] F: [phone] F: [phone] F: [phone] F: [phone] Physical Therapy Discharge Report Diagnosis: s/p L knee ACL repair and medial meniscus repair Date of Surgery: 07/11/2022 Date of Evaluation: 07/19/22 Date of Discharge: 01/10/23 Treatments to Date: 12 Cancellations to Date: 10 No Shows to Date: 8 Discharge Status: Visit Non-compliance Discharge Summary: Patient NS or Cx her last 3 PT visits and is therefore discharged from PT at this time. Please see most recent note on 12/12/22 for most recent assessment. Electronically signed by: Andres Cummings, PT, DPT Please sign and return to therapist. Thank you for your referral.
== END 2023-01-10 10:48 | disposition home or self-care (01) ==
LOC: HO.PT 13:00
PROVIDERS: PCP Internal Medicine; Visit Provider Physician Assistant
DX: Z98.890 Other specified postprocedural states (principal)
CPT/HCPCS: 97110; 97112; 97116; 97140; 97162; 97530; 97535

== ENCOUNTER 2023-01-23 11:58 | Outpatient (REF) | payer OTHER, SELFPAY ==
--- NOTE | ~2023-01-23 | XR_ITS ---
EXAMINATION: XR HAND, RIGHT CLINICAL INFORMATION: Pain COMPARISON: None TECHNIQUE: PA, lateral, and oblique views of the right hand. FINDINGS: No acute fracture. Degenerative changes of the first CMC joint with joint space narrowing and osteophytosis. XR/XR hand RT min 3V IMPRESSION: Moderate osteoarthritis of the first CMC joint.
== END 2023-01-23 11:59 | disposition home or self-care (01) ==
LOC: HO.HOSX 11:58
PROVIDERS: PCP Internal Medicine; Visit Provider Orthopaedic Surgery
DX: M18.11 Unilateral primary osteoarthritis of first carpometacarpal joint, right hand (principal); M25.341 Other instability, right hand
CPT/HCPCS: 73130; 99212

== ENCOUNTER 2023-01-31 14:11 | Outpatient (REF) | payer OTHER, SELFPAY ==
--- NOTE | ~2023-01-31 | CT_ITS ---
EXAMINATION: CT WRIST WITHOUT CONTRAST, RIGHT CLINICAL INFORMATION: Instability. Evaluate thumb. COMPARISON: Multiple priors, most recent right hand radiographs dated 01/23/2023. TECHNIQUE: Contiguous axial CT images of the right wrist were obtained without contrast. Multiplanar reformats were provided and reviewed. This CT examination was performed using dose optimization techniques as appropriate, variously including the following: *Automated exposure control *Adjustment of mA and/or kV according to patient size (this includes techniques or standardized protocols for targeted exams where dose is matched to indication/reason for exam; i.e. extremities or head) *Use of iterative reconstruction technique DLP: 122 mGy-cm FINDINGS: The 1st metacarpal is displaced radially in relation to the trapezium articular surface. There are marginal osteophytes and subchondral cystic change noted along the articular surface. There appears to be mild bony remodeling along the radial aspect of the trapezium, which likely indicates a chronic dislocation. No acute fracture. Mild joint space narrowing with tiny marginal osteophytes at the triscaphe joint. No concerning lytic or blastic osseous lesion. No abnormal soft tissue mass or fluid collection. The visualized flexor and extensor tendons are grossly intact; however, evaluation is limited on CT examination. CT/CT wrist RT wo IV con IMPRESSION: 1. Radial displacement of the 1st metacarpal in relation to the trapezium articular surface with marginal osteophytes and subchondral cystic change. Mild bony remodeling along the radial aspect of the trapezium, which likely indicates a chronic dislocation. 2. 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
== END 2023-01-31 14:12 | disposition home or self-care (01) ==
LOC: HO.CT 14:11
PROVIDERS: PCP Internal Medicine; Visit Provider Orthopaedic Surgery
DX: M25.341 Other instability, right hand (principal)
CPT/HCPCS: 73200

== ENCOUNTER → 2023-02-01 15:00 | Outpatient (BNVA) | payer OTHER, SELFPAY | PROVIDERS: PCP Internal Medicine; Visit Provider Physician Assistant Surgical ==

== ENCOUNTER → 2023-02-12 08:27 | Outpatient (BNVA) | payer OTHER, SELFPAY | PROVIDERS: PCP Internal Medicine; Visit Provider Physician Assistant | DX: S83.521D Sprain of posterior cruciate ligament of right knee, subsequent encounter (principal); S83.242D Other tear of medial meniscus, current injury, left knee, subsequent encounter; S83.412D Sprain of medial collateral ligament of left knee, subsequent encounter | CPT/HCPCS: 99212 ==

== ENCOUNTER 2023-02-27 13:07 | Outpatient (REF) | payer OTHER, SELFPAY | END 2023-02-27 13:08 | disposition home or self-care (01) | LOC: HO.HOSX 13:07 | PROVIDERS: PCP Internal Medicine; Visit Provider Orthopaedic Surgery | DX: M18.11 Unilateral primary osteoarthritis of first carpometacarpal joint, right hand (principal); M25.341 Other instability, right hand | CPT/HCPCS: 99212 ==

== ENCOUNTER 2023-02-28 07:09 | Outpatient (REF) | payer OTHER, SELFPAY | END 2023-02-28 07:10 | disposition home or self-care (01) | LOC: HO.HOSX 07:09 | PROVIDERS: Visit Provider Physician Assistant | DX: Z13.89 Encounter for screening for other disorder (principal) ==

== ENCOUNTER 2023-04-01 12:50 | Outpatient (REF) | payer OTHER, SELFPAY ==
--- NOTE | ~2023-04-01 | XR_ITS ---
EXAMINATION: XR RIGHT KNEE CLINICAL INFORMATION: Pain, right knee. COMPARISON: Standing AP view bilateral knees 10/23/2021. TECHNIQUE: AP standing view of bilateral knees. Lateral and sunrise views of the right knee. FINDINGS: Right knee: No significant joint effusion. Moderate medial joint space narrowing with small medial marginal osteophytes. Tiny posterior patellar osteophytes. Left knee: Single AP standing view demonstrates postsurgical changes characteristic of cruciate ligament repair, not present on 10/23/2021. XR/XR knee standing BI IMPRESSION: Moderate degenerative changes right knee. Postsurgical changes on single view of left knee. Additional imaging with CT scan or MRI should be considered for better visualization as these modalities are much more sensitive for detection of fracture or other underlying pathology.
--- NOTE | ~2023-04-01 | XR_ITS ---
EXAMINATION: XR RIGHT KNEE CLINICAL INFORMATION: Pain, right knee. COMPARISON: Standing AP view bilateral knees 10/23/2021. TECHNIQUE: AP standing view of bilateral knees. Lateral and sunrise views of the right knee. FINDINGS: Right knee: No significant joint effusion. Moderate medial joint space narrowing with small medial marginal osteophytes. Tiny posterior patellar osteophytes. Left knee: Single AP standing view demonstrates postsurgical changes characteristic of cruciate ligament repair, not present on 10/23/2021. XR/XR knee RT 2V IMPRESSION: Moderate degenerative changes right knee. Postsurgical changes on single view of left knee. Additional imaging with CT scan or MRI should be considered for better visualization as these modalities are much more sensitive for detection of fracture or other underlying pathology.
== END 2023-04-01 12:51 | disposition home or self-care (01) ==
LOC: HO.HOSX 12:50
PROVIDERS: Visit Provider Physician Assistant
DX: Z13.89 Encounter for screening for other disorder (principal)

== ENCOUNTER → 2023-04-02 14:00 | Outpatient (BNVA) | payer OTHER, SELFPAY | PROVIDERS: PCP Internal Medicine; Visit Provider Physician Assistant Surgical | DX: E66.01 Morbid (severe) obesity due to excess calories (principal); Z68.41 Body mass index [BMI] 40.0-44.9, adult | CPT/HCPCS: 99212 ==

== ENCOUNTER 2023-04-09 07:01 | Outpatient (REF) | payer OTHER, SELFPAY ==
--- NOTE | ~2023-04-09 | XR_ITS ---
EXAMINATION: XR CHEST CLINICAL INFORMATION: Obesity COMPARISON: Previous chest x-ray May 2022 TECHNIQUE: 2 views of the chest were obtained. FINDINGS: The cardiac and mediastinal contours are stable. Stable heart valve annuloplasty ring and median sternotomy wires. Hilar and mediastinal contours are normal. The lungs are clear. No pleural effusion or pneumothorax. Bony structures are otherwise unremarkable. XR/XR chest 2V IMPRESSION: No evidence for acute disease in the chest.
--- NOTE | 2023-04-09 07:08 | ECG_ITS ---
Test Reason : e66.01 Blood Pressure : / mmHG Vent. Rate : 101 BPM Atrial Rate : 101 BPM P-R Int : 168 ms QRS Dur : 080 ms QT Int : 324 ms P-R-T Axes : 071 253 039 degrees QTc Int : 420 ms Sinus tachycardia Right superior axis deviation Inferior infarct , age undetermined Anterior infarct , age undetermined Abnormal ECG When compared with ECG of 17-DEC-2019 08:12, Vent. rate has increased BY 34 BPM Anterior infarct is now Present Inferior infarct is now Present Referred By: Norm Smalls Electronically Signed By:MIGUELITO GUILLORY
[2023-04-09 07:36] LABS: Basophils Absolute Auto 0.1 X10*3/uL (0.0-0.2); Basophils Percent Auto 0.8 % (0-2); Eosinophils Absolute Auto 0.2 X10*3/uL (0.0-0.4); Hematocrit 53.1 % (37.0-47.0); Hemoglobin 16.6 g/dl (12.0-16.0); Imm Gran Abs Auto 0.03 X10*3/uL (0.00-0.03); Imm Gran Pct Auto 0.3 % (0.0-0.4); Lymphocytes Absolute Auto 2.9 X10*3/uL (1.2-4.9); Lymphocytes Percent Auto 32.3 % (20-40); MANUAL DIFF FLAG NO; Mean Corpuscular HGB Conc 31.3 g/dl (31.0-35.0); Mean Corpuscular Volume 92.8 fL (80.0-98.0); Mean Platelet Volume 11.3 fL (9.4-12.3); Monocytes Absolute Auto 0.8 X10*3/uL (0.1-1.2); Neutrophils Absolute Auto 5.1 x10*3/uL (2.0-8.3); Neutrophils Percent Auto 55.6 % (45-73); Platelet Count 260 X10*3/uL (160-400); Red Blood Count 5.72 X10*6/uL (4.20-5.50); Red Cell Distribution Width 15.3 % (11.0-16.0); White Blood Count 9.1 X10*3/uL (4.8-10.8)
[2023-04-09 07:50] LABS: Estimated Average Glucose 232 mg/dL; Hemoglobin A1c % 9.7 %
[2023-04-09 08:39] LABS: Alanine Aminotransferase 33 U/L (0-31); Albumin Level 3.8 g/dL (3.5-5.0); Alkaline Phosphatase 148 U/L (39-117); Anion Gap 17 (12-20); Aspartate Amino Transferase 20 U/L (5-31); Bilirubin Total 0.8 mg/dL (0.0-1.0); Blood Urea Nitrogen 22 mg/dL (9-16); C Reactive Protein 1.79 mg/dL (< or = 0.50); Carbon Dioxide 20 mmol/L (22-29); Chloride 110 mmol/L (96-108); Cholesterol 183 mg/dL; Estimated Glomerular Filt Rate 34; Glucose Random 176 mg/dL (60-115); HDL Cholesterol 42 mg/dL; Iron 91 mcg/dL (30-160); LDL Cholesterol Calculated 109 mg/dl; Percent Iron Saturation 27 % (15-50); Potassium 4.5 mmol/L (3.3-5.1); Sodium 142 mmol/L (135-145); Total Iron Binding Capacity 340 mcg/dL (228-428); Total Protein 7.3 g/dL (6.5-8.0); Triglycerides 164 mg/dL; Unsaturated Iron Binding 249 ug/dL
[2023-04-09 08:46] LABS: Insulin 48 uU/mL (2-29)
[2023-04-09 08:55] LABS: Ferritin 62 ng/mL (10-250); Folate 12.8 ng/mL (> or = 4.0); TSH reflex Free T4 1.92 uIU/mL (0.32-4.0); Vitamin B12 372 pg/mL (200-900); Vitamin D 25-OH Total 27.1 ng/mL (>30)
[2023-04-10 14:09] LABS: Calcium (PTHI) 9.9 mg/dL (8.6-10.4); PTHI 77 pg/mL (16-77)
[2023-04-15 09:39] LABS: Vitamin B1 7 nmol/L (8-30)
[2023-04-16 17:14] LABS: Zinc 59 mcg/dL (60-130)
[2023-04-17 11:43] LABS: Vitamin A 54 mcg/dL (38-98)
== END 2023-04-09 07:02 | disposition home or self-care (01) ==
LOC: HO.XRAY 07:01
PROVIDERS: PCP Internal Medicine; Visit Provider Physician Assistant Surgical
DX: E66.01 Morbid (severe) obesity due to excess calories (principal); E11.8 Type 2 diabetes mellitus with unspecified complications; I10 Essential (primary) hypertension
CPT/HCPCS: 36415; 71046; 80053; 80061; 82306; 82607; 82728; 82746; 83036; 83525; 83540; 83970; 84425; 84443; 84590; 84630; 85025; 86140; 93005

== ENCOUNTER → 2023-05-06 09:47 | Outpatient (BNVA) | payer OTHER, SELFPAY | PROVIDERS: PCP Internal Medicine; Visit Provider Counselor Mental Health ==

== ENCOUNTER 2023-05-10 14:01 | Outpatient (REF) | payer OTHER, SELFPAY ==
[2023-05-10 17:15] LABS: Estimated Average Glucose 223 mg/dL; Hemoglobin A1c % 9.4 %
[2023-05-10 19:41] LABS: Glucose Random 322 mg/dL (60-115)
== END 2023-05-10 14:02 | disposition home or self-care (01) ==
LOC: HO.LAB 14:01
PROVIDERS: PCP Internal Medicine; Visit Provider Physician Assistant Surgical
DX: E11.8 Type 2 diabetes mellitus with unspecified complications (principal); E66.01 Morbid (severe) obesity due to excess calories
CPT/HCPCS: 36415; 82947; 83036; 99453

== ENCOUNTER → 2023-05-13 09:32 | Outpatient (BNVA) | payer OTHER, SELFPAY | PROVIDERS: PCP Internal Medicine; Visit Provider Orthopaedic Surgery | DX: M17.31 Unilateral post-traumatic osteoarthritis, right knee (principal); T14.90XS Injury, unspecified, sequela; E11.8 Type 2 diabetes mellitus with unspecified complications; E66.01 Morbid (severe) obesity due to excess calories; Z68.41 Body mass index [BMI] 40.0-44.9, adult | CPT/HCPCS: 20610; 73560; 73565; 99212; J1100 ==

== ENCOUNTER → 2023-06-05 13:35 | Outpatient (BNVA) | payer OTHER, SELFPAY | PROVIDERS: PCP Internal Medicine; Visit Provider Physician Assistant Surgical | DX: Z11.0 Encounter for screening for intestinal infectious diseases (principal); Z71.3 Dietary counseling and surveillance | CPT/HCPCS: 97802; 99211 ==

== ENCOUNTER 2023-06-06 | Outpatient (REF) | payer OTHER, SELFPAY ==
[2023-06-08 13:20] LABS: H Pylori Breath Test Negative (Negative)
== END 2023-06-06 00:01 | disposition home or self-care (01) ==
LOC: HO.LAB
PROVIDERS: PCP Internal Medicine; Visit Provider Physician Assistant Surgical
DX: E66.01 Morbid (severe) obesity due to excess calories (principal); E11.8 Type 2 diabetes mellitus with unspecified complications; I10 Essential (primary) hypertension
CPT/HCPCS: 36415; 83013

== ENCOUNTER 2023-06-06 14:06 | Outpatient (AMB) | payer OTHER, SELFPAY ==
--- NOTE | 2023-06-06 14:18 | A.OFFWM_ITS ---
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 Diabetes mellitus, type II History of hepatitis C History of transesophageal echocardiography (KATIA) HTN (hypertension) CAROL (obstructive sleep apnea) Palpitations Smoker Smokers' cough Vitamin D deficiency Surgical History H/O tricuspid valve repair History of appendectomy History of cardiac cath History of cholecystectomy History of colonoscopy History of coronary artery bypass surgery History of tonsillectomy History of tubal ligation Hx of left knee surgery Hx of right knee surgery Family History Father Pancreatic cancer Mother Breast cancer Diabetes Hypertension Social History Alcohol intake: never Patient Tobacco Use Status: Current everyday Tobacco user Tobacco use type: Cigarette Cigarettes Per Day: 4 Years Smoked: 44 Current occupational status: unemployed 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 Pt stated that she was eating the same thing all the time but since meeting with reel stripper, she has a better sense of what she should be doing. Patient will be seen again in office. Pt is looking to have weight loss surgery to help improve her health and quality of life. Pt stated that she used to see a therapist several months ago through [facility] due to her depression and PTSD however it did not work out with that therapist.She also used to take medication for mental health but not currently. Pt reported previous inpatient psychiatric admission s due to depression and suicide attempt. She reported ongoing suicidal ideation and often sits in a dark room. 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 Currently smokes cigarettes. She smokes about 4 a day from one pack. Presenting Concerns Referral Source provider Reason for referral weight loss surgery evaluation Precipitating Event obesity Living Situation Current Living Situation Relative's/Guardian's Gaby and Rent At risk of losing current housing? No Satisfied with current living situation? Yes Comments Pt lives with her son in an apartment. Food/Weight/Diet Expectations of change weight loss and maintenance History/Relationship with food Pt stated that she struggles with late night eating. She reported eating rice, chicken, beans, macaroni salad, potato salad, cakes and will get sweet tooth. Also really loves soda. History/Relationship with weight Pt stated that she was thin as a child and young adult until she got clean from drugs at age 36. She then started to gain weight. She is currently at her heaviest. History/Relationship with dieting P in 2020, has lost weight in the past with reduced eating. Binge Eating Do you frequently eat large amounts of food in short periods of time, not feeling physically hungry? Yes Do you feel out of control when you eat a large amount of food in a short period of time? No Do you eat large amounts of food rapidly and typically alone? Yes Night Eating Do you wake up at least once during the night to eat? No If you wake up in the night, do you find that it is necessary to eat something in order to fall back asleep? Yes Do you have little or no appetite in the morning and feel very hungry in the evening, often overeating between dinner and when you go to bed? Yes Social History Family history and relationship Pt was born in [place] and came here in 2001. She was raised by her parents, mother is still living in [place], childhood was described as not good and is one of 5 siblings. Pt is , her 6 years ago and she has 4 children. 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 none Education Highest grade completed high school diploma online Preferred learning style Auditory, Verbal, Written, Learn by doing and Visual Currently enrolled in educational program? No Interested in further educational program? No Employment Employment Status Other Wants help to find employment? No Meaningful activities road trips in her car, Financial Situation Describe current financial situation Often struggles with finance Financial assistance? SSDI Service Service? No Mental Health and Addiction Treatment Current/Past substance abuse? Yes Medical and Physical Health Summary Physical exam in the last year? Yes Pain Screening Current pain? Yes Pain in the last few months? Yes Medications Is the patient compliant with medications? Yes Does the patient have Rubio Guardian in place? Not applicable Does the patient use complimentary health approaches? No Trauma/Abuse History History of trauma? Yes Assessment & Plan Assessment & Plan (1) Major depressive disorder, severe: Code(s): F32.2 - Major depressive disorder, single episode, severe without psychotic features (2) Posttraumatic stress disorder: Code(s): F43.10 - Post-traumatic stress disorder, unspecified (3) Morbid obesity: Code(s): E66.01 - Morbid (severe) obesity due to excess calories Plan Patient is in need of stabilization of her depression, she is often isolated in the dark and thinks about dying. She seems motivated and still hopeful as she is looking to improve her health and quality of life. No suicide plan or intent at this time. She will be seen again and is not cleared. Patient reports that she is much better past few weeks, no SI, trying to stay consistent with program requirements. Telehealth Telehealth Location of provider rendering services: other Location of patient: address on file Patient Identification confirmed using: Name, : Yes Telehealth method: video Patient verbally consented to treatment: Yes Patient verbally consented to billing insurance company: Yes Patient informed of any privacy concerns related to visit: Yes Minutes spent on Phone/Video with Pt.: 30 Coding Level of Care Code Tele Psytx 30 mins (63147) Diagnoses Major depressive disorder, severe F32.2 Posttraumatic stress disorder F43.10 Morbid obesity E66.01 Time Spent (min) 30
== END 2023-06-06 14:29 | disposition home or self-care (01) ==
LOC: HO.HBST 14:06
PROVIDERS: PCP Internal Medicine; Visit Provider Counselor Mental Health
DX: F32.2 Major depressive disorder, single episode, severe without psychotic features (principal); F43.10 Post-traumatic stress disorder, unspecified; E66.01 Morbid (severe) obesity due to excess calories
CPT/HCPCS: 90832

== ENCOUNTER 2023-06-10 15:57 | Outpatient (AMB) | payer OTHER, SELFPAY ==
--- NOTE | 2023-06-10 15:36 | A.OFFVIS_ITS ---
Intake VS Expanded 06/10/23 15:38 Height 5 ft 6 in Weight 280 lb 12.8 oz BMI 45.3 Intake Visit Reasons: VIDEO F/U SWL Allergies varenicline [From [facility]] Allergy (Unknown, Verified 06/05/23 13:50) RASH HPI HPI Comments History of Present Illness Details The patient is a pleasant 57 year old female who returns to the clinic for pre-operative surgical weight loss management. They were last seen in the office on 04/02/23, recorded weight at that time was 275 pounds, with a BMI of 44.5. Today's weight is 280.8 pounds and BMI is 45.3. There has been a weight gain of 5.8 pounds since initiating the surgical weight loss program on 04/02/23. Pre op work up completed as follows: SWL classes:? 01/23 BH appts: missed 05/20/23 ? ? RD appts: f/u 07/02/23 Labs: 04/09/23, HgbA1c 9.7, low D, B1, B12 H. pylori: 04/26/23-neg CXR: 04/09/23-nad EK04/09/23-abnormal RAD ?inf/ant infarct - F/U card 06/13/23 ABD U/S: UGI: The patient reports she was not following the plans for 3 weeks. She started the plan again about a week ago. She is doing 1 scoop per shake w 1 % milk. 7- 9, 11-1, not eating protein bar, meal 9 forks/9 forks. 7pm-9pm shake. She reports low AM sugars at 3 am. 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 Channing was taking 100 u lantus Recommended Current meal plan includes: 3 Premier Protein shakes ([employer], [employer], [employer]) First shake (2 scoop in 8 oz low fat unsweetened almond milk) at 7am-9am Second shake (1 scoop in 8 oz unsweetened almond milk) at 11am-1pm 1 protein bar (Zone Perfect bars at [employer], [employer], or [employer]) at 2pm-4pm. Dinner at 5pm (9 forks of protein and 9 forks of salad/vegetables). Another shake with 1 scoop in 8 oz unsweetened almond milk at 7pm-9pm. Drinking 128 oz of water Current exercise plan includes: joined [employer]. 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 Diabetes mellitus, type II History of hepatitis C History of transesophageal echocardiography (KATIA) HTN (hypertension) CAROL (obstructive sleep apnea) Palpitations Smoker Smokers' cough Vitamin D deficiency Surgical History H/O tricuspid valve repair History of appendectomy History of cardiac cath History of cholecystectomy History of colonoscopy History of coronary artery bypass surgery History of tonsillectomy History of tubal ligation Hx of left knee surgery Hx of right knee surgery Family History Father Pancreatic cancer Mother Breast cancer Diabetes Hypertension Social History Alcohol intake: never Patient Tobacco Use Status: Current everyday Tobacco user Tobacco use type: Cigarette Cigarettes Per Day: 4 Years Smoked: 44 Current occupational status: unemployed 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 will need further testing, will wait and see what they say. rtc 3 weeks decrease lantus to 60 untis scheduled for endocrine f/u next month Telehealth Telehealth Location of provider rendering services: practice address Location of patient: other Patient Identification confirmed using: Name, : Yes Telehealth method: video Patient verbally consented to treatment: Yes Patient verbally consented to billing insurance company: Yes Patient informed of any privacy concerns related to visit: Yes Minutes spent on Phone/Video with Pt.: 15 Coding Level of Care Code Tele Est Pt Level 3 (96349) Diagnoses Morbid obesity E66.01 Time Spent (min) 20
[2023-06-10 15:38] VITALS: BMI 45.3
== END 2023-06-10 16:46 | disposition home or self-care (01) ==
LOC: HO.HBS 15:57
PROVIDERS: PCP Internal Medicine; Visit Provider Physician Assistant Surgical
DX: E66.01 Morbid (severe) obesity due to excess calories (principal); Z68.42 Body mass index [BMI] 45.0-49.9, adult
CPT/HCPCS: 99213

== ENCOUNTER → 2023-06-10 15:57 | Outpatient (BNVA) | payer OTHER, SELFPAY | PROVIDERS: PCP Internal Medicine; Visit Provider Physician Assistant Surgical | DX: E66.01 Morbid (severe) obesity due to excess calories (principal); Z68.42 Body mass index [BMI] 45.0-49.9, adult | CPT/HCPCS: Q3014 ==

== ENCOUNTER 2023-06-12 14:46 | Outpatient (AMB) | payer OTHER, SELFPAY ==
--- NOTE | 2023-06-12 15:07 | A.OFFWM_ITS ---
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 Diabetes mellitus, type II History of hepatitis C History of transesophageal echocardiography (KATIA) HTN (hypertension) CAROL (obstructive sleep apnea) Palpitations Smoker Smokers' cough Vitamin D deficiency Surgical History H/O tricuspid valve repair History of appendectomy History of cardiac cath History of cholecystectomy History of colonoscopy History of coronary artery bypass surgery History of tonsillectomy History of tubal ligation Hx of left knee surgery Hx of right knee surgery Family History Father Pancreatic cancer Mother Breast cancer Diabetes Hypertension Social History Alcohol intake: never Patient Tobacco Use Status: Current everyday Tobacco user Tobacco use type: Cigarette Cigarettes Per Day: 4 Years Smoked: 44 Current occupational status: unemployed 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 We discussed mindset, habit forming, making and setting goals that are realistic. She has a gym membership but has not gone yet. Pt put a plan in place for how she will get to the gym every other day. She has many other family members living in her home who do not make healthy eating choices. Pt is looking to have weight loss surgery to help improve her health and quality of life. Pt stated that she used to see a therapist several months ago through [facility] due to her depression and PTSD however it did not work out with that therapist.She also used to take medication for mental health but not currently. Pt reported previous inpatient psychiatric admission s due to depression and suicide attempt. She reported ongoing suicidal ideation and often sits in a dark room. 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 Currently smokes cigarettes. She smokes about 4 a day from one pack. Presenting Concerns Referral Source provider Reason for referral weight loss surgery evaluation Precipitating Event obesity Living Situation Current Living Situation Relative's/Guardian's Gaby and Rent At risk of losing current housing? No Satisfied with current living situation? Yes Comments Pt lives with her son in an apartment. Food/Weight/Diet Expectations of change weight loss and maintenance History/Relationship with food Pt stated that she struggles with late night eating. She reported eating rice, chicken, beans, macaroni salad, potato salad, cakes and will get sweet tooth. Also really loves soda. History/Relationship with weight Pt stated that she was thin as a child and young adult until she got clean from drugs at age 36. She then started to gain weight. She is currently at her heaviest. History/Relationship with dieting WMP in 2020, has lost weight in the past with reduced eating. Binge Eating Do you frequently eat large amounts of food in short periods of time, not feeling physically hungry? Yes Do you feel out of control when you eat a large amount of food in a short period of time? No Do you eat large amounts of food rapidly and typically alone? Yes Night Eating Do you wake up at least once during the night to eat? No If you wake up in the night, do you find that it is necessary to eat something in order to fall back asleep? Yes Do you have little or no appetite in the morning and feel very hungry in the evening, often overeating between dinner and when you go to bed? Yes Social History Family history and relationship Pt was born in [place] and came here in 2001. She was raised by her parents, mother is still living in [place], childhood was described as not good and is one of 5 siblings. Pt is , her 6 years ago and she has 4 children. 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 none Education Highest grade completed high school diploma online Preferred learning style Auditory, Verbal, Written, Learn by doing and Visual Currently enrolled in educational program? No Interested in further educational program? No Employment0 Employment Status Other Wants help to find employment? No Meaningful activities road trips in her car, Financial Situation Describe current financial situation Often struggles with finance Financial assistance? SSDI Service Service? No Mental Health and Addiction Treatment Current/Past substance abuse? Yes Medical and Physical Health Summary Physical exam in the last year? Yes Pain Screening0 Current pain? Yes Pain in the last few months? Yes Medications Is the patient compliant with medications? Yes Does the patient have Rubio Guardian in place? Not applicable Does the patient use complimentary health approaches? No Trauma/Abuse History History of trauma? Yes Assessment & Plan Assessment & Plan (1) Major depressive disorder, severe: Code(s): F32.2 - Major depressive disorder, single episode, severe without psychotic features (2) Posttraumatic stress disorder: Code(s): F43.10 - Post-traumatic stress disorder, unspecified (3) Morbid obesity: Code(s): E66.01 - Morbid (severe) obesity due to excess calories Plan Patient is in need of stabilization of her depression, she is often isolated in the dark and thinks about dying. She seems motivated and still hopeful as she is looking to improve her health and quality of life. No suicide plan or intent at this time. She will be seen again and is not cleared. Patient reports that she is much better past few weeks, no SI, trying to stay consistent with program requirements. Coding Level of Care Code Psytx 45 mins (22683) Diagnoses Major depressive disorder, severe F32.2 Posttraumatic stress disorder F43.10 Morbid obesity E66.01 Time Spent (min) 40
== END 2023-06-12 16:43 | disposition home or self-care (01) ==
PROVIDERS: PCP Internal Medicine; Visit Provider Counselor Mental Health
DX: F32.2 Major depressive disorder, single episode, severe without psychotic features (principal); F43.10 Post-traumatic stress disorder, unspecified; E66.01 Morbid (severe) obesity due to excess calories
CPT/HCPCS: 90834

== ENCOUNTER → 2023-06-12 14:46 | Outpatient (BNVA) | payer OTHER, SELFPAY | PROVIDERS: PCP Internal Medicine; Visit Provider Counselor Mental Health ==

== ENCOUNTER 2023-06-13 09:55 | Outpatient (AMB) | payer OTHER, SELFPAY ==
[2023-06-13 10:09] VITALS: BP 160/80; PULSE 61; BMI 45.2
--- NOTE | 2023-06-13 10:09 | MHC.OFFVIS ---
Intake Vital Signs 06/13/23 10:09 Height 5 ft 6 in Weight 279 lb 15.793 oz BMI 45.2 BP 160/80 H Blood Pressure Location Lt brachial Position Sitting Pulse 61 Intake Visit Reasons: follow up per patient chest pain Intake Note: follow up patient still having chest pain Ground In[employer] Basic Required: No Allergies varenicline [From CHANTIX] Allergy (Unknown, Verified 06/13/23 10:20) RASH Medication List - Last Reconciled 06/13/23 by TAIWO MontemayorC albuterol sulfate 90 mcg/actuation 2 puffs inhalation Q4-6H PRN aripiprazole 5 mg PO DAILY aspirin (Adult Aspirin Regimen) 81 mg PO DAILY atorvastatin 40 mg PO BEDTIME cholecalciferol (vitamin D3) 125 mcg PO DAILY 90 days cyanocobalamin (vitamin B-12) 500 mcg PO DAILY 90 days empagliflozin (Jardiance) 0 mg PO fluticasone propionate 110 mcg/actuation 1 puff inhalation BID gabapentin 100 mg PO BEDTIME hydralazine 25 mg PO BID 30 days insulin glargine (Lantus U-100 Insulin) units subcut insulin glargine U-300 conc (Toujeo Max U-300 SoloStar) 60 units subcut DAILY insulin lispro (Humalog U-100 Insulin) 15 units subcut TID insulin lispro (Humalog U-100 Insulin) 5 units subcut TID lisinopril 10 mg PO DAILY lubiprostone (Amitiza) 24 mcg PO BID PRN metoprolol succinate ER 100 mg PO DAILY omeprazole 40 mg PO BID thiamine HCl (vitamin B1) 100 mg PO DAILY 90 days zinc gluconate 50 mg PO DAILY HPI follow up per patient chest pain HPI Details Lorrie is a 57-year-old female with past medical history of hypertension, hyperlipidemia, diabetes, coronary artery disease status post coronary artery bypass grafting and tricuspid valve repair who presents for follow-up. Her last prior visit to our office was 05/15/2022. Today she reports that she has had a few episodes of chest tightness recently. She describes 2 episodes occurring without exertional activities that involve tightness in the chest that radiated to her jaw making it feel like her jaw was locked. She also had some lightheadedness at that time. She says the symptom lasted few minutes and resolved. She also has noted just some isolated chest tightness when her blood sugars have been either very high or very low. She has some shortness of breath with activities which is not new. She continues to smoke 6 cigarettes a day but is working on reduction. She is currently enrolled in the [facility] weight loss management program. She denies PND, orthopnea or edema. She is taking all meds as directed however does not believe that hydralazine is on her list. She walks for activity but otherwise is mostly sedentary. 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 Diabetes mellitus, type II History of hepatitis C History of transesophageal echocardiography (KATIA) HTN (hypertension) CAROL (obstructive sleep apnea) Palpitations Smoker Smokers' cough Vitamin D deficiency Surgical History H/O tricuspid valve repair History of appendectomy History of cardiac cath History of cholecystectomy History of colonoscopy History of coronary artery bypass surgery History of tonsillectomy History of tubal ligation Hx of left knee surgery Hx of right knee surgery Family History Father Pancreatic cancer Mother Breast cancer Diabetes Hypertension Social History Alcohol intake: never Patient Tobacco Use Status: Current everyday Tobacco user Tobacco use type: Cigarette Cigarettes Per Day: 4 Years Smoked: 44 Current occupational status: unemployed 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 Review of Systems Const All systems reviewed & are unremarkable except as noted in HPI and below ENT Reports dizziness Card Details: Chest tightness with radiation to her jaw on 2 occasions Reports chest pain, Denies chest pain at rest, Denies chest pain with activity, Denies rapid heart rate, Denies pedal edema, Denies edema, Denies leg edema, Denies lightheadedness, Denies palpitations, Denies dyspnea, Denies dyspnea on exertion and Denies orthopnea Resp Denies cough, Denies dyspnea and Denies dyspnea on exertion GI Denies hematochezia and Denies change in stool character Musc Denies abnormal gait, Reports limited range of motion, Reports muscle cramps, Denies muscle weakness, Denies numbness, Denies radiating pain into limb, Denies stiffness and Denies tingling Neuro Denies abnormal gait, Reports dizziness, Denies numbness and Denies tingling Endo Denies palpitations Physical Exam Vital Signs: Last Vital Signs Pulse 61 06/13/23 10:09 BP 160/80 H 06/13/23 10:09 BMI result Body Mass Index 45.2 Const General: cooperative, comfortable and no acute distress Orientation/consciousness: patient oriented x3 Neck Neck: Yes normal visual inspection Resp Effort & Inspection: normal respiratory effort Auscultation: clear to auscultation bilaterally, no rales, no rhonchi and no wheezes Cardio Jugular venous distension: no JVD Rate: regular rate Rhythm: regular rhythm Heart sounds: S1 normal heart sound present, S2 normal heart sound present, no gallops, no murmurs and no rubs GI Inspection: Yes normal to inspection Neuro General: patient oriented x3 Extrem General: Yes normal to inspection, No no pedal edema and No calf tenderness Psych Appearance: grossly normal Mental Status: mental status grossly normal Speech and movement: Normal speech and movement present Office Procedures EKG Details: Today, read by me, normal sinus rhythm, left axis deviation, pulmonary disease pattern, similar appearance to last EKG, QTC 396 milliseconds, rate 61 [id number], Complete Assessment & Plan Assessment & Plan (1) Chest discomfort: Code(s): R07.89 - Other chest pain Plan: Patient with known history of CAD with prior Coronary artery bypass grafting. Last nuclear stress test done 05/02/2021 showed normal myocardial perfusion imaging. Today she reports having 2 episodes of mid sternal pressure with radiation up to her jaw like her jaw was locked lasting a few minutes and resolving. These episodes were not during exertional activities. She also notices some chest tightness when her blood sugars heart high or low. She is mostly sedentary. She has multiple cardiac risk factors including obesity, hypertension, hyperlipidemia, diabetes. EKG today shows no acute ischemic findings. Will arrange for updated echocardiogram to evaluate EF and for wall motion abnormality and nuclear stress test to evaluate for ischemia. She will not be able to walk on treadmill due to shortness of breath with activity and morbid obesity. Pharmacological nuclear stress test has been ordered. Continue aspirin, atorvastatin, metoprolol XL. Emergency care if needed for symptoms. Cardiology follow-up when test results are available. (2) History of coronary artery bypass surgery: Comment: [place] [facility] [place](s): Z95.1 - Presence of aortocoronary bypass graft (3) H/O tricuspid valve repair: Comment: 2016 [place] [facility] [place] Code(s): Z98.890 - Other specified postprocedural states Plan: Last echocardiogram done 11/06/2021 shows EF 55-60%, tricuspid ring in place, normally functioning valve, small loculated pericardial effusion. No clear heart murmur noted on exam. Will be updating echocardiogram as above (4) Essential hypertension: Code(s): I10 - Essential (primary) hypertension Plan: Blood pressure elevated this visit, initially 160/80, recheck 144/68. She previously was on hydralazine for blood pressure control as well as lisinopril and metoprolol XL. She tells me she is no longer on hydralazine for unclear reason. It is not listed as an allergy for her. Labs done on 04/09/2023 shows creatinine 1.55. Will continue lisinopril at current dose without increased. Will restart on hydralazine 25 mg b.i.d. as she has increased risk of noncompliance with t.i.d. dosing. Blood pressure will be rechecked at the time of the stress test and next visit. (5) Morbid obesity: Code(s): E66.01 - Morbid (severe) obesity due to excess calories Plan: She tells me she is currently enrolled in the [facility] weight loss program. Applauded on this. Orders: Orders CA echo transthoracic complete Today R07.89 - Other chest pain, Z95.1 - Presence of aortocoronary bypass graft, Z98.890 - Other specified postprocedural states CA lexiscan stress w marguerite Today R07.89 - Other chest pain, Z95.1 - Presence of aortocoronary bypass graft, Z98.890 - Other specified postprocedural states NM cardiolite stress test Today R07.89 - Other chest pain, Z95.1 - Presence of aortocoronary bypass graft, Z98.890 - Other specified postprocedural states Medications: New hydralazine 25 mg PO BID 30 days 60 tabs 5RF Coding Level of Care Code Est Pt Level 4 (29740) Diagnoses Chest discomfort R07.89 History of coronary artery bypass surgery Z95.1 H/O tricuspid valve repair Z98.890 Essential hypertension I10 Morbid obesity E66.01 CPT Codes EKG - CPT: 04171-[id number], Complete ([id number]) Time Spent (min) 28 Comment Chart review, documentation, interview, assessment
== END 2023-06-13 10:40 | disposition home or self-care (01) ==
PROVIDERS: PCP Internal Medicine; Visit Provider Nurse Practitioner Family
DX: R07.89 Other chest pain (principal); Z95.1 Presence of aortocoronary bypass graft; Z98.890 Other specified postprocedural states; I10 Essential (primary) hypertension; E66.01 Morbid (severe) obesity due to excess calories
CPT/HCPCS: 93010; 99214

== ENCOUNTER → 2023-06-13 09:55 | Outpatient (BNVA) | payer OTHER, SELFPAY | PROVIDERS: PCP Internal Medicine; Visit Provider Nurse Practitioner Family | DX: R07.89 Other chest pain (principal); I10 Essential (primary) hypertension; E66.01 Morbid (severe) obesity due to excess calories; Z98.890 Other specified postprocedural states; Z95.1 Presence of aortocoronary bypass graft; Z68.42 Body mass index [BMI] 45.0-49.9, adult | CPT/HCPCS: 93005; 99212 ==

== ENCOUNTER 2023-06-25 07:41 | Outpatient (REF) | payer OTHER, SELFPAY | END 2023-06-25 07:42 | disposition home or self-care (01) | LOC: HO.US 07:41 | PROVIDERS: PCP Internal Medicine; Visit Provider Physician Assistant Surgical | DX: E66.01 Morbid (severe) obesity due to excess calories (principal); E11.8 Type 2 diabetes mellitus with unspecified complications; I10 Essential (primary) hypertension | CPT/HCPCS: 76705; 76981 ==

== ENCOUNTER → 2023-08-12 14:48 | Outpatient (REF) | payer OTHER, SELFPAY ==
--- NOTE | 2023-08-12 14:51 | CA_ITS ---
Transthoracic Echocardiogram Patient (Last, First, Middle): Lorrie Rahman, Gender: Female Date of : 1965 Age: 58 Procedure Date: 08/12/2023 Procedure Type: Transthoracic Echocardiogram Location: OP Height: 167.64 cm Weight: 122.47 kg BSA: 2.27 m2 Heart Rate: 56 bpm BP: 125 / 70 mmHg Executive Search Consultant: SHARON Referring MD: Barbara Cherry [facility] Symptoms: Z98.890 - Other specified postprocedural states Study Quality: Technically Difficult/Contrast ECG Rhythm: Bradycardia Conclusions: - 1. Technically limited study despite use of contrast agent with normal LV ejection fraction 55-60% with pseudonormal filling pattern 2. Possible tricuspid valve repair with normal cardiac valvular Doppler Findings Procedure Information Contrast agent, definity, is being given per protocol without apparent complications. Left Ventricle Normal left ventricular size and systolic function. There is mildly increased left ventricular wall thickness. The visually estimated ejection fraction is between 55-60%. Regional wall motion abnormalities can not be excluded due to suboptimal endocardial definition. Spectral Doppler is indicative of a pseudonormal filling pattern. E/E prime ratio is between 8 and 15 consistent with indeterminate filling pressures. Right Ventricle The right ventricle was not well visualized. Atria The left atrium was not well visualized. There is no evidence of interatrial shunt. The right atrium was not well visualized. Aortic Valve The aortic valve was not well visualized. There is no aortic valve stenosis. There is no aortic valve regurgitation. Mitral Valve There is mild anterior and posterior mitral leaflet thickening. There is trace mitral valve regurgitation. There is no mitral valve stenosis. Pulmonic Valve The pulmonic valve was not well visualized. Tricuspid Valve The tricuspid valve was not well visualized. Thickening of the annulus that could suggest tricuspid valve repair or annuloplasty ring Great Vessels The aorta was not well visualized. The pulmonary artery was not well visualized. Venous The inferior vena cava is normal in size. Pericardium/Pleural The pericardium was not well visualized. Prior Study Comparison No significant change compared to prior study dated: 11/06/2021. Measurements 2D Linear Measurements IVSd: 1.44 0.6-0.9/0.6-1.0 cm LVIDd: 4.25 3.9-5.3/4.2-5.9 cm LVIDd Index: 1.87 2.4-3.2/2.2-3.1 cm/m2 LVIDs: 2.30 2.0-3.6 cm LVPWd: 1.09 0.7-1.1 cm LA Diam: 4.10 2.7-3.8/3.0-4.0 cm LAIDs Index: 1.81 1.5-2.3 cm/m2 LV Mass: 244.30 67-162/88-224 g LV Mass Index: 107.62 43-95/49-115 g/m2 LVOT Diam: 1.90 3.0+(-)1.3 cm 2D Systolic Function EF 4C: 59.40 >55% EF 2C: 57.60 >55% EF BiP: 57.90 >55% Mitral Valve MV Pk E: 0.93 MV PK A: 0.75 MV Decel Time: 235.00 E/A: 1.20 E'Lateral: 6.64 E'Medial: 7.18 E/E' Med: 12.90 E/E' Lat: 13.90 PHT: 69.00 MVA PHT: 3.19 Decel [place]: 3.95 Aortic Valve AoV Pk Evans: 1.33 AoV Mn Evans: 0.92 AoV VTI: 0.27 AoV Pk Grad: 7.00 Aov Mn Grad: 4.00 SARMAD Cont.VTI: 2.24 LVOT LVOT Pk Evans: 0.94 LVOT Mn Evans: 0.67 LVOT VTI: 0.22 LVOT Pk Grad: 4.00 LVOT Mn Grad: 2.00 LVOT Diam: 1.90 LVOT Area: 2.84 Diastolic Function MV Pk E: 0.93 MV Pk A: 0.75 E/A: 1.20 E'Medial: 7.18 E/E' Med: 12.90 E' Laterial: 6.64 E/E' Lat: 13.90 Right Ventricle TAPSE (mm): 14.60 TVS' Evans: 6.40 Tricuspid Valve TV Pk Evans: 0.95 TV Mn Evans: 0.53 TV Pk Grad: 4.00 TV Mn Grad: 1.00 Great Vessels Aorta Sinus of Valsalva: 3.40 2.0-3.5 cm Ao Asc: 3.40 2.1-3.4 cm Pulmonary Valve PV Pk Evans: 0.94 Peak PV Grad: 4.00 Updated in Other Vendor System with Status of Final Jose Hamilton MD electronically signed on 08/13/2023 11:55:45 AM with status of Final
== END ==
LOC: HO.CARD 14:48
PROVIDERS: PCP Internal Medicine; Visit Provider Nurse Practitioner Family
DX: R07.89 Other chest pain (principal); Z95.1 Presence of aortocoronary bypass graft; Z98.890 Other specified postprocedural states
CPT/HCPCS: 93306; Q9957

== ENCOUNTER → 2023-08-12 14:51 | Outpatient (BNV) | payer OTHER, SELFPAY | PROVIDERS: PCP Internal Medicine; Visit Provider Internal Medicine Cardiovascular Disease | DX: I34.89 Other nonrheumatic mitral valve disorders (principal) | CPT/HCPCS: 93306 ==

== ENCOUNTER → 2023-09-10 07:48 | Outpatient (REF) | payer OTHER, SELFPAY ==
--- NOTE | ~2023-09-10 | NM_ITS ---
Myocardial perfusion study Indication: Chest pain to evaluate for myocardial ischemia Technique: The patient was brought in for a Lexiscan perfusion study on 09/10/2023. Patient performed low-level exercise and was injected 0.4 mg of Lexiscan intravenously. Within a minute of injection, 40 mCi of sestamibi was given intravenously. Images were obtained using the SPECT gamma camera interlaced with the gating device. Images were obtained in supine position. Resting perfusion study was performed on 09/11/2023. Patient was administered 40 mCi of sestamibi intravenously at rest. Images were then obtained in supine position. Images obtained with and without CT attenuation. Total DLP 194 mGy-cm. Images were processed with the software and compared side to side in short axis, horizontal long axis and vertical long axis views. Findings: The stress perfusion study showed that images show mildly reduced uptake in the inferior and septal wall of the LV myocardium. Remainder of the LV myocardium is normally perfused. Attenuation corrected images show normalized uptake in the inferior inferoseptal wall of the LV myocardium, findings probably suggestive diaphragmatic attenuation that is confirmed by reviewing the tomographic images. The gated study shows normal LV systolic function with calculated LVEF of 67%. LV cavity is normal in size. The gated study shows normal systolic wall thickening and contraction of segments. Resting study shows attenuated corrected images show mildly reduced uptake in the apex of the LV myocardium. Gating at rest reveals normal systolic wall motion with ejection fraction at 64%. The findings are consistent with likely normal myocardial perfusion. NM/NM cardiolite stress test Impression: 1. Myocardial perfusion imaging study shows likely normal myocardial perfusion 2. Gated LVEF is 67% 3. Transient ischemic dilatation not present EKG is nondiagnostic for ischemia
--- NOTE | 2023-09-10 07:51 | CA_ITS ---
Acquisition Time: 2023-09-10 08:00:58 Total Exercise Time: 00:02:00 Test Indications: Dyspnea Medications: SEE H Protocol: LEXISCAN Max HR: 086 BPM 53% of Pred: 162 BPM Max BP: 124/078 mmHG Max Work Load: 1.0 METS Pharmacological stress test with Lexiscan injection while sitting and kicking her legs, with mild SOB, no chest discomfort, without arrhythmias, with normotensive response to injection, with nondiagnositic EKGs. Breathing resolved quickly. Nuclear images pending. Test reviewed with Dr. Hamilton Referred By: Barbara Cherry Overread By: China Peck
== END ==
LOC: HO.CARD 07:48
PROVIDERS: PCP Internal Medicine; Visit Provider Nurse Practitioner Family
DX: R07.89 Other chest pain (principal); Z95.1 Presence of aortocoronary bypass graft; Z98.890 Other specified postprocedural states
CPT/HCPCS: 78452; 93017; A9500; J0280; J2785

== ENCOUNTER → 2023-09-10 07:51 | Outpatient (BNV) | payer OTHER, SELFPAY | PROVIDERS: PCP Internal Medicine; Visit Provider Nurse Practitioner | DX: R06.02 Shortness of breath (principal); R07.89 Other chest pain | CPT/HCPCS: 78452; 93016; 93018 ==

== ENCOUNTER 2023-10-07 15:45 | Outpatient (AMB) | payer OTHER, SELFPAY ==
[2023-10-07 15:49] VITALS: BP 120/82; PULSE 112; BMI 43.0
--- NOTE | 2023-10-07 15:49 | MHC.OFFVIS ---
Intake Vital Signs 10/07/23 15:49 Height 5 ft 6 in Weight 266 lb 5.094 oz BMI 43.0 BP 120/82 Blood Pressure Location Lt brachial Position Sitting Pulse 112 H Intake Visit Reasons: f/u after testing Allergies varenicline [From CHANTIX] Allergy (Unknown, Verified 10/07/23 15:51) RASH Medication List - Last Reconciled 10/07/23 by SHANE Montemayor albuterol sulfate 90 mcg/actuation 2 puffs inhalation Q4-6H PRN aripiprazole 5 mg PO DAILY aspirin (Adult Aspirin Regimen) 81 mg PO DAILY atorvastatin 40 mg PO BEDTIME cholecalciferol (vitamin D3) 125 mcg PO DAILY 90 days cyanocobalamin (vitamin B-12) (Vitamin B-12) 500 mcg PO DAILY empagliflozin (Jardiance) 0 mg PO fluticasone propionate 110 mcg/actuation 1 puff inhalation BID gabapentin 100 mg PO BEDTIME hydralazine 25 mg PO BID 30 days insulin glargine (Lantus U-100 Insulin) units subcut insulin glargine U-300 conc (Toujeo Max U-300 SoloStar) 60 units subcut DAILY insulin lispro (Humalog U-100 Insulin) 15 units subcut TID insulin lispro (Humalog U-100 Insulin) 5 units subcut TID lisinopril 10 mg PO DAILY lubiprostone (Amitiza) 24 mcg PO BID PRN melatonin 10 mg PO BEDTIME PRN metoprolol succinate ER 100 mg PO DAILY omeprazole 40 mg PO BID thiamine HCl (vitamin B1) 100 mg PO DAILY 90 days zinc gluconate 50 mg PO DAILY HPI f/u after testing HPI Details Lorrie is a 58-year-old female with past medical history of hypertension, hyperlipidemia, diabetes, obstructive sleep apnea, CAD with single-vessel Coronary artery bypass grafting, tricuspid valve repair who recently reported chest discomfort and underwent a echocardiogram and stress test and now presents for follow-up. Today she reports that she has been getting some right sided chest discomfort only when her blood sugar is running 80 or below. She describes that pain as sharp and severe at times. It is not brought on by physical activity. It improves with correcting her blood sugar. She also describes a tightness in her mid chest which has been occurring randomly. It is not worse with activity, movement, deep breaths. She has shortness of breath with activity which is not new. She continues to smoke 5-6 cigarettes per day. No palpitations, presyncope, syncope, falls. No PND or edema. She sleeps with 3 pillows and on her side which is her norm. She is taking all meds as directed. Describes a recent episode when she was at home and felt lightheaded and her son had to catch her before she fell down. No recurrent episodes since that time. She tells me her knee pops out with ambulation and stair climbing periodically. She admits to being mostly sedentary. 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 Bronchial asthma Smokers' cough Smoker Vitamin D deficiency CAD (coronary artery disease) Palpitations Atherosclerotic cardiovascular disease HTN (hypertension) Diabetes mellitus, type II CAROL (obstructive sleep apnea) History of hepatitis C History of transesophageal echocardiography (KATIA) Surgical History Hx of right knee surgery Hx of left knee surgery H/O tricuspid valve repair History of colonoscopy History of cardiac cath History of cholecystectomy History of coronary artery bypass surgery History of appendectomy History of tonsillectomy History of tubal ligation Family History Father Pancreatic cancer Mother Breast cancer Diabetes Hypertension Social History Alcohol intake: never Patient Tobacco Use Status: Current everyday Tobacco user Tobacco use type: Cigarette Cigarettes Per Day: 4 Years Smoked: 44 Current occupational status: unemployed 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 Review of Systems Const All systems reviewed & are unremarkable except as noted in HPI and below ENT Denies dizziness Card Reports chest pain, Reports chest pain at rest, Denies chest pain with activity, Denies rapid heart rate, Denies pedal edema, Denies edema, Denies leg edema, Denies lightheadedness, Denies palpitations, Denies dyspnea, Reports dyspnea on exertion and Denies orthopnea Resp Denies cough, Denies dyspnea and Reports dyspnea on exertion GI Denies hematochezia and Denies change in stool character Musc Denies abnormal gait, Denies limited range of motion, Denies muscle cramps, Denies muscle weakness, Denies numbness, Denies radiating pain into limb, Denies stiffness and Reports tingling (neuropathy) Neuro Denies abnormal gait, Denies dizziness, Denies numbness and Reports tingling (neuropathy) Endo Denies palpitations Physical Exam Vital Signs: Last Vital Signs Pulse 112 H 10/07/23 15:49 BP 120/82 10/07/23 15:49 BMI result Body Mass Index 43.0 Const General: cooperative, healthy appearing, comfortable and no acute distress Orientation/consciousness: patient oriented x3 Neck Neck: Yes normal visual inspection Resp Effort & Inspection: normal respiratory effort Auscultation: clear to auscultation bilaterally, no crackles, no rales, no rhonchi and no wheezes Cardio Jugular venous distension: no JVD Rate: regular rate and tachycardic Heart sounds: S1 normal heart sound present, S2 normal heart sound present, no murmurs and no rubs Neuro General: patient oriented x3 Extrem General: Yes normal to inspection and No no pedal edema Psych Appearance: grossly normal Mental Status: mental status grossly normal Speech and movement: Normal speech and movement present Office Procedures EKG Details: Today, read by me Sinus tach, rate atrial enlargement, right axis, pulmonary disease pattern, rate 112, similar appearance to last EKG however rate now elevated, QTC 434 millisecond [id number], Complete Assessment & Plan Assessment & Plan (1) CAD (coronary artery disease): Code(s): I25.10 - Atherosclerotic heart disease of [place] coronary artery without angina pectoris Qualifiers: Coronary Disease-Associated Artery/Lesion type: [place] artery [place] vs. transplanted heart: [place] heart Associated angina: without angina Qualified Code(s): I25.10 - Atherosclerotic heart disease of [place] coronary artery without angina pectoris Plan: History of CAD with coronary artery bypass grafting, wilkinson to LAD in 2016 along with tricuspid valve repair. Other vessels reported as being normal at that time. Multiple cardiac risk factors including hypertension, hyperlipidemia, diabetes, obesity, smoking. Today she reports 2 types of chest discomfort. One is right-sided breast area pain that occurs when her blood sugar is 80 or below. The other is anterior chest tightness that occurs randomly at times along with shortness of breath. An echocardiogram was done on 08/12/2023 showing EF 55-60%, no valve abnormalities, tricuspid valve repair noted, wall motion abnormality could not be excluded. A pharmacological nuclear stress test was done 09/11/2023 showing normal myocardial perfusion imaging, EF 67%. EKG done on her today showing sinus tachycardia, pulmonary disease pattern, no ischemic findings which is unchanged from prior, rate 112 which is high for her. She is unclear why her heart rate is high today. She did have coffee this morning which is her normal. She had a cigarette prior to this visit. She did take her metoprolol today. Instructed on good hydration and strict med compliance. Her chest discomfort, both types seem non cardiac in nature. She will discuss the chest discomfort with low blood sugars with her PCP who manages her diabetes. The anterior chest tightness and shortness of breath could be related to COPD, smoking. Instructed on complete smoking cessation. She states she will continue to try. Continue aspirin indefinitely. Continue atorvastatin with ideal LDL goal less than 70. Continue metoprolol. Cardiology follow-up in 6 months, sooner if needed. Emergency care if ever needed for symptoms (2) History of coronary artery bypass surgery: Comment: 2016 - [facility] Code(s): Z95.1 - Presence of aortocoronary bypass graft (3) Chest discomfort: Code(s): R07.89 - Other chest pain (4) H/O tricuspid valve repair: Comment: 2016 - [facility] Code(s): Z98.890 - Other specified postprocedural states Plan: Functioning normally on recent echocardiogram Plan Time spent on chart review, documentation, interview, assessment Coding Level of Care Code Est Pt Level 4 (00215) Diagnoses Coronary artery disease involving [place] coronary artery of [place] heart without angina pectoris I25.10 Coronary Disease-Associated Artery/Lesion type: [place] artery [place] vs. transplanted heart: [place] heart Associated angina: without angina History of coronary artery bypass surgery Z95.1 Chest discomfort R07.89 H/O tricuspid valve repair Z98.890 CPT Codes EKG - CPT: 86871-[id number], Complete ([id number]) Time Spent (min) 28
== END 2023-10-07 16:21 | disposition home or self-care (01) ==
PROVIDERS: PCP Internal Medicine; Visit Provider Nurse Practitioner Family
DX: I25.10 Atherosclerotic heart disease of native coronary artery without angina pectoris (principal); Z95.1 Presence of aortocoronary bypass graft; R07.89 Other chest pain; Z98.890 Other specified postprocedural states
CPT/HCPCS: 93010; 99214

== ENCOUNTER → 2023-10-07 15:45 | Outpatient (BNVA) | payer OTHER, SELFPAY | PROVIDERS: PCP Internal Medicine; Visit Provider Nurse Practitioner Family | DX: I25.10 Atherosclerotic heart disease of native coronary artery without angina pectoris (principal); R07.89 Other chest pain; Z95.1 Presence of aortocoronary bypass graft; Z98.890 Other specified postprocedural states | CPT/HCPCS: 93005; 99212 ==

== ENCOUNTER 2023-11-07 13:43 | Outpatient (AMB) | payer OTHER, SELFPAY ==
--- NOTE | 2023-11-07 13:56 | MHC.OFFVIS ---
Intake Intake Visit Reasons: OV - Right Knee Pain Intake Note: Lorrie is a 58 year old female who presents today for a follow up of her right knee pain. Last injected on 05/13/23. Patient reports significant knee instability with multiple falls. Right Knee ACL & Meniscus 10/02/2020. Allergies varenicline [From CHANTIX] Allergy (Unknown, Verified 10/07/23 15:51) RASH HPI OV - Right Knee Pain HPI Details Lorrie is a 58 year old Diabetic woman who presents to discuss her right knee instability. She has known knee OA & a Hx of right ACL debridement, DOS: 10/12/[address] Dietz. She had left knee ACL reconstruction by me ~ 18 months ago. Her left knee is actually eoing fine but she describes giving way on her right. She complains of multiple falls & knee instability since her last appointment. She was last seen, and injected, on 05/13/23, with some relief. 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 Bronchial asthma Smokers' cough Smoker Vitamin D deficiency CAD (coronary artery disease) Palpitations Atherosclerotic cardiovascular disease HTN (hypertension) Diabetes mellitus, type II CAROL (obstructive sleep apnea) History of hepatitis C History of transesophageal echocardiography (KATIA) Surgical History Hx of right knee surgery Hx of left knee surgery H/O tricuspid valve repair History of colonoscopy History of cardiac cath History of cholecystectomy History of coronary artery bypass surgery History of appendectomy History of tonsillectomy History of tubal ligation Family History Father Pancreatic cancer Mother Breast cancer Diabetes Hypertension Social History Alcohol intake: never Patient Tobacco Use Status: Current everyday Tobacco user Tobacco use type: Cigarette Cigarettes Per Day: 4 Years Smoked: 44 Current occupational status: unemployed 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 Review of Systems Const All systems reviewed & are unremarkable except as noted in HPI and below Physical Exam Const General: no acute distress, alert and awake Orientation/consciousness: patient oriented x3 HEENT Head: Yes normocephalic and Yes atraumatic Eyes EOM: EOMs intact bilaterally Resp Effort & Inspection: normal respiratory effort and able to speak in complete sentences Cardio Jugular venous distension: no JVD Skin General skin exam: turgor normal Rashes: no rashes Neuro General: patient oriented x3 Extrem Other: stable Cori's left knee with full ROM and no effusion. Stable to v/v stress. Right knee with no endpoint on lachamn's testing and 1+ valgus instability. trace effusion. minimal joint line tenderness and negative Steinmen's Psych Appearance: grossly normal Affect: normal affect Attitude: cooperative Results Reviewed Results Reviewed: I personally reviewed the MR images. Medial compartment OA right knee Assessment & Plan Assessment & Plan (1) Recurrent right knee instability: Code(s): M23.51 - Chronic instability of knee, right knee Plan: Right knee instability with moderate OA. Not amenable to ligament reconstruction and arthropalsty too aggressive and patient too young. Focus on PT and weight loss. (2) Localized osteoarthritis of right knee: Code(s): M17.11 - Unilateral primary osteoarthritis, right knee Plan Scribed for Guerrero Sanabria MD by Santos Arriaza, medical billing and coding specialist, on 11/07/23 at 2:10 PM, EST. Coding Level of Care Code Est Pt Level 4 (06711) Diagnoses Recurrent right knee instability M23.51 Localized osteoarthritis of right knee M17.11
== END 2023-11-07 14:33 | disposition home or self-care (01) ==
PROVIDERS: PCP Internal Medicine; Visit Provider Orthopaedic Surgery
DX: M23.51 Chronic instability of knee, right knee (principal); M17.11 Unilateral primary osteoarthritis, right knee
CPT/HCPCS: 99213

== ENCOUNTER → 2023-11-07 13:43 | Outpatient (BNVA) | payer OTHER, SELFPAY | PROVIDERS: PCP Internal Medicine; Visit Provider Orthopaedic Surgery | DX: M23.51 Chronic instability of knee, right knee (principal); M17.11 Unilateral primary osteoarthritis, right knee | CPT/HCPCS: 99212 ==

== ENCOUNTER 2023-12-10 21:59 | Emergency (ER) | payer OTHER, SELFPAY ==
--- NOTE | ~2023-12-10 | XR_ITS ---
EXAMINATION: XR ABDOMEN KUB CLINICAL INDICATION: Right-sided abdominal discomfort COMPARISON: 09/21/2015 TECHNIQUE: AP view of the abdomen. FINDINGS: Bowel gas pattern is nonobstructive. Moderate stool is present in the colon. Limited evaluation for free air with supine positioning. Cholecystectomy clips are present in the right upper quadrant. No suspicious calcifications are seen. Limited included lung bases appear well-aerated. No acute osseous findings are seen. XR/XR KUB IMPRESSION: Nonobstructive bowel gas pattern. Moderate volume of stool.
[2023-12-10 22:07] VITALS: BP 176/104; PULSE 99; RESP 18; TEMP 36.2; O2SAT 95; BMI 42.4
[2023-12-10 22:54] LABS: MANUAL DIFF FLAG NO
[2023-12-10 22:56] LABS: Appearance Urine Cloudy; Color Urine Yellow; Glucose Urine UA >=1000 mg/dL (Negative); Leukocyte Esterase Urine Negative (Negative); Nitrite Urine Negative (Negative); Specific Gravity - Urine >= 1.030 (1.005-1.025); UMIC TRIGGER UACC YES; Urine Blood Negative (Negative); Urine Ketones 15 mg/dL (Negative); Urine Protein Trace mg/dL (Neg-Trace)
[2023-12-10 23:01] LABS: Basophils Absolute Auto 0.1 X10*3/uL (0.0-0.2); Basophils Percent Auto 0.7 % (0-2); Eosinophils Absolute Auto 0.1 X10*3/uL (0.0-0.4); Eosinophils Percent Auto 1.1 % (0-4); Hematocrit 47.2 % (37.0-47.0); Hemoglobin 15.3 g/dl (12.0-16.0); Imm Gran Abs Auto 0.04 X10*3/uL (0.00-0.03); Imm Gran Pct Auto 0.3 % (0.0-0.4); Lymphocytes Absolute Auto 2.1 X10*3/uL (1.2-4.9); Lymphocytes Percent Auto 18.5 % (20-40); Mean Corpuscular HGB Conc 32.4 g/dl (31.0-35.0); Mean Corpuscular Hemoglobin 30.2 pg (27.0-33.0); Mean Corpuscular Volume 93.1 fL (80.0-98.0); Mean Platelet Volume 11.2 fL (9.4-12.3); Monocytes Absolute Auto 0.9 X10*3/uL (0.1-1.2); Monocytes Percent Auto 7.8 % (2-11); Neutrophils Absolute Auto 8.3 x10*3/uL (2.0-8.3); Neutrophils Percent Auto 71.6 % (45-73); Platelet Count 267 X10*3/uL (160-400); Red Blood Count 5.07 X10*6/uL (4.20-5.50); Red Cell Distribution Width 15.2 % (11.0-16.0); White Blood Count 11.6 X10*3/uL (4.8-10.8)
[2023-12-10 23:08] LABS: Alanine Aminotransferase 34 U/L (0-31); Alkaline Phosphatase 159 U/L (39-117); Anion Gap 17 (12-20); Aspartate Amino Transferase 19 U/L (5-31); Bacteria Urine 4+ (None Seen); Bilirubin Direct 0.3 mg/dL (0.0-0.5); Bilirubin Total 0.6 mg/dL (0.0-1.0); Blood Urea Nitrogen 20 mg/dL (9-16); Calcium 9.6 mg/dL (8.4-10.2); Carbon Dioxide 22 mmol/L (22-29); Chloride 103 mmol/L (96-108); Creatinine Clr Calc Pharmacy 43.5; Estimated Glomerular Filt Rate 28; Glucose Random 310 mg/dL (60-115); Lipase 50 U/L (8-78); Potassium 4.2 mmol/L (3.3-5.1); RBC Urine 0-2 /HPF (0-2); Sodium 138 mmol/L (135-145); Total Protein 8.2 g/dL (6.5-8.0); WBC Urine 0-5 /HPF (0-5)
[2023-12-11 04:15] VITALS: BP 186/104; PULSE 88; RESP 16; TEMP 36.6; O2SAT 96
--- NOTE | 2023-12-11 05:43 | ED.ABDPAIN ---
HPI - Abdominal Pain General Chief Complaint: Abdominal Pain Stated Complaint: higher abd pain/goes to the back Time Seen by Provider: 12/11/23 05:19 Source: patient Mode of arrival: ambulatory History of Present Illness HPI narrative: 58-year-old female with presentation for persistent abdominal discomfort, patient was seen the day before yesterday up in [facility] and underwent lab work as well as CT imaging that she endorses herself was negative. Patient states that she attempted to reach out to her solder making laborer yesterday but was unable to make contact. Related Data Home Medications Medication Instructions Recorded Confirmed albuterol sulfate 90 mcg/actuation 2 puff inhalation Q4-6H PRN 08/17/20 10/07/23 aerosol inhaler Wheezing fluticasone propionate 110 1 puff inhalation BID 08/17/20 10/07/23 mcg/actuation HFA aerosol inhaler gabapentin 100 mg capsule 100 mg PO BEDTIME 08/17/20 10/07/23 insulin glargine U-300 conc 300 60 unit subcut DAILY 08/17/20 10/07/23 unit/mL (3 mL) subcutaneous pen (Toujeo Max U-300 SoloStar) insulin lispro 100 unit/mL 5 unit subcut TID 08/17/20 10/07/23 subcutaneous cartridge (Humalog U-100 Insulin) lisinopril 10 mg tablet 10 mg PO DAILY 08/17/20 10/07/23 metoprolol succinate 100 mg 100 mg PO DAILY 08/17/20 10/07/23 tablet,extended release 24 hr insulin lispro 100 unit/mL 15 unit subcut TID 09/15/20 10/07/23 subcutaneous solution (Humalog U-100 Insulin) atorvastatin 40 mg tablet 40 mg PO BEDTIME 08/29/21 10/07/23 empagliflozin 10 mg tablet 0 mg PO 08/29/21 10/07/23 (Jardiance) insulin glargine 100 unit/mL unit subcut 08/29/21 10/07/23 subcutaneous solution (Lantus U-100 Insulin) aripiprazole 5 mg tablet 5 mg PO DAILY 02/09/22 10/07/23 omeprazole 40 mg capsule,delayed 40 mg PO BID 05/10/23 10/07/23 release melatonin 10 mg capsule 10 mg PO BEDTIME PRN 10/07/23 10/07/23 Previous Rx's Medication Instructions Recorded aspirin 81 mg tablet,delayed 81 mg PO DAILY #90 tabs 12/28/22 release (Adult Aspirin Regimen) lubiprostone 24 mcg capsule 24 mcg PO BID PRN Constipation #60 02/15/23 (Amitiza) caps cholecalciferol (vitamin D3) 125 125 mcg PO DAILY 90 days #90 caps 04/09/23 mcg (5,000 unit) capsule thiamine HCl (vitamin B1) 100 mg 100 mg PO DAILY 90 days #90 tabs 04/16/23 tablet cyanocobalamin (vitamin B-12) 500 500 mcg PO DAILY #90 tabs 07/01/23 mcg tablet (Vitamin B-12) zinc gluconate 50 mg tablet 50 mg PO DAILY #60 tabs 07/15/23 hydralazine 25 mg tablet 25 mg PO BID 30 days #60 tabs 12/03/23 sucralfate 100 mg/mL oral 10 ml PO BID #420 mL 12/11/23 suspension (Carafate) Allergies Allergy/AdvReac Type Severity Reaction Status Date / Time varenicline [From CHANTIX] Allergy Unknown RASH Verified 10/07/23 15:51 Review of Systems Review of Systems Pertinent positives and negatives as stated in HPI PMFSH Past Medical History Source: nursing notes reviewed Medical History Chronic kidney disease 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 Bronchial asthma Smokers' cough Smoker Vitamin D deficiency CAD (coronary artery disease) Palpitations Atherosclerotic cardiovascular disease HTN (hypertension) Diabetes mellitus, type II CAROL (obstructive sleep apnea) History of hepatitis C History of transesophageal echocardiography (KATIA) Surgical History Hx of right knee surgery Hx of left knee surgery H/O tricuspid valve repair History of colonoscopy History of cardiac cath History of cholecystectomy History of coronary artery bypass surgery History of appendectomy History of tonsillectomy History of tubal ligation Family History Family History Father Pancreatic cancer Mother Breast cancer Diabetes Hypertension Social History Social History Alcohol intake: never Patient Tobacco Use Status: Current everyday Tobacco user Tobacco use type: Cigarette Cigarettes Per Day: 4 Years Smoked: 44 Advance Directives: No Advance Directives Information Provided: No Current occupational status: unemployed 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 Physical Exam ED Vital Signs: Vital Signs - 24 hr 12/10/23 22:07 12/11/23 04:15 Temperature 97.2 F 97.8 F Pulse Rate 99 88 Respiratory Rate 18 16 Blood Pressure 176/104 H 186/104 H Pulse Oximetry 95 96 Oxygen Delivery Method Room Air Room Air BMI result Body Mass Index 42.4 VITAL SIGNS: Reviewed. GENERAL: Well developed, well nourished, in no acute distress. HEAD: Normocephalic/atraumatic EYES: PERRLA, EOMI EARS: Ext canals without abnormality NOSE: Nares patent bilateral OROPHARYNX: no oral lesions noted, posterior pharynx clear NECK: Supple, no adenopathy LUNGS: Normal breath sounds. No adventitious sounds or accessory muscle use. SpO2<96> CARDIOVASCULAR: Regular rate and rhythm without noted murmurs ABDOMEN: Soft, non-tender, non-distended with bowel sounds. MUSCULOSKELETAL: No tenderness, deformities, or effusions noted on gross inspection. EXTREMITIES: No cyanosis, clubbing or edema. SKIN: Inspection of the skin reveals no rashes NEUROLOGIC: Alert and oriented x 4. Strength and sensation to light touch were grossly intact x 4. Medical Decision Making Medical Decision Making MDM Narrative: 58-year-old female with history and clinical presentation, DDX: GERD, acid reflux, possible stomach ulcer but patient is status post cholecystectomy/appendectomy and denies any symptoms to suggest obstructive etiology as there is no nausea, vomiting in she reports that she is continued to pass gas and have a bowel movement. Her reviewed all investigations and hematologic indices demonstrate a non infectious leukocytosis without left shift and there is no anemia or thrombocytopenia. Chemistry indices demonstrate chronically stable kidney disease as well as hyperglycemia without DKA or HHS. Otherwise, there is no electrolyte or acute change in liver enzymes. Patient has chronically elevated ALT/alk-phos. Urinalysis is contaminated with multiple squamous epithelial cells and does not demonstrate any evidence of hematuria. Waiting KUB findings into the meantime patient was provided a GI cocktail and Carafate. KUB negative for any acute findings to suggest obstruction, moderate stool burden noted in may be contributing to patient's symptoms. On re-evaluation she is feeling somewhat improved and will discharge her with a prescription for Carafate and also provider with a referral to follow-up with Dr. Scott. Differential Diagnosis Differential Diagnoses: The differential diagnosis associated with the presentation includes Please see the discussion above Admission/Observation Consideration of admission/observation: Escalation of care including admission/observation considered Please see the discussion above Lab Data MDM Lab Attestation statement: I reviewed the patient's lab results. Please see the discussion above 12/10/23 22:27 12/10/23 22:27 Labs: Lab Results 12/10/23 Range/Units 22:27 WBC 11.6 H (4.8-10.8) X10*3/uL RBC 5.07 (4.20-5.50) X10*6/uL Hgb 15.3 (12.0-16.0) g/dl Hct 47.2 H (37.0-47.0) % MCV 93.1 (80.0-98.0) fL MCH 30.2 (27.0-33.0) pg MCHC 32.4 (31.0-35.0) g/dl RDW 15.2 (11.0-16.0) % Plt Count 267 (160-400) X10*3/uL MPV 11.2 (9.4-12.3) fL Immature Gran % (Auto) 0.3 (0.0-0.4) % Neut % (Auto) 71.6 (45-73) % Lymph % (Auto) 18.5 L (20-40) % [place] % (Auto) 7.8 (2-11) % Eos % (Auto) 1.1 (0-4) % Baso % (Auto) 0.7 (0-2) % Lymph # (Auto) 2.1 (1.2-4.9) X10*3/uL [place] # (Auto) 0.9 (0.1-1.2) X10*3/uL Eos # (Auto) 0.1 (0.0-0.4) X10*3/uL Baso # (Auto) 0.1 (0.0-0.2) X10*3/uL Abs Immat Gran (auto) 0.04 H (0.00-0.03) X10*3/uL Absolute Neuts (auto) 8.3 (2.0-8.3) x10*3/uL Absolute Nucleated RBC 0.000 (0.0-0.012) X10*3/uL Nucleated RBC % (auto) 0.0 (0.0-0.2) /100WBC Sodium 138 (135-145) mmol/L Potassium 4.2 (3.3-5.1) mmol/L Chloride 103 (96-108) mmol/L Carbon Dioxide 22 (22-29) mmol/L Anion Gap 17 (12-20) BUN 20 H (9-16) mg/dL Creatinine 1.85 H (0.5-1.4) mg/dL Estim Creat Clear Calc 43.5 Estimated GFR 28 Random Glucose 310 H (60-115) mg/dL Calcium 9.6 (8.4-10.2) mg/dL Total Bilirubin 0.6 (0.0-1.0) mg/dL Direct Bilirubin 0.3 (0.0-0.5) mg/dL AST 19 (5-31) U/L ALT 34 H (0-31) U/L Alkaline Phosphatase 159 H (39-117) U/L Total Protein 8.2 H (6.5-8.0) g/dL Albumin 4.0 (3.5-5.0) g/dL Lipase 50 (8-78) U/L Urine Color Yellow Urine Appearance Cloudy Urine pH 5.0 (5.0-9.0) Ur Specific [place] >= 1.030 H (1.005-1.025) Urine Protein Trace (Neg-Trace) mg/dL Urine Glucose (UA) >=1000 H (Negative) mg/dL Urine Ketones 15 (Negative) mg/dL Urine Blood Negative (Negative) Urine Nitrite Negative (Negative) Ur Leukocyte Esterase Negative (Negative) Urine RBC 0-2 (0-2) /HPF Urine WBC 0-5 (0-5) /HPF Ur Squamous Epith Cells 11-20 (0-2) /HPF Urine Bacteria 4+ (None Seen) Hyaline Casts 3-5 (0-2) /LPF Radiology Impression Discussion of test interpretation with radiology: I have reviewed the radiologist's reading. Radiologist Impression: Please see the discussion above External Record Review External record reviewed: Outpatient record, Prior outpatient labs and Prior outpatient radiology Chronic Conditions Patient?s care impacted by: Diabetes Medications Administered Discontinued Medications Generic Name Dose Route Start Last Admin Trade Name Freq PRN Reason Stop Dose Admin Al Hydroxide/Mg Hydroxide 30 ml 12/11/23 05:41 12/11/23 05:58 Magnesium Hydrox/Alum Hydrox 30 Ml Oral.Susp PO 12/11/23 05:42 30 ml ONCE ONE Administration Lidocaine HCl 10 ml 12/11/23 05:41 12/11/23 05:58 Lidocaine Hcl Viscous 2 % 15 Ml Solution MUCOUS MEM 12/11/23 05:42 10 ml ONCE ONE Administration Sucralfate 1 gm 12/11/23 05:41 12/11/23 05:58 Sucralfate Oral Suspension 1 Gm/10 Ml Oral.Susp PO 12/11/23 05:42 1 gm ONCE ONE Administration Critical Care Time Critical Care Time Critical Care Time: Yes Total Critical Care Time: 30 Attestation: I personally attest to this time spent taking care of the patient. Discharge Plan Discharge Clinical Impression: Gastric ulcer, Gastritis, GERD (gastroesophageal reflux disease), Constipation Patient Disposition: Home, Self-Care Instructions: Gastritis (ED), Constipation (ED), High Fiber Diet (ED), Diet for Stomach Ulcers and Gastritis (ED), Gastroesophageal Reflux Disease (ED) Additional Instructions: 1. Resume home medications as prescribed. 2. You have been given a prescription for Carafate and highly recommend that you follow-up with your solder making laborer today. 3. Please follow-up with your primary care doctor in the next 1-2 days. Return to the ER for any worsening symptoms. Prescriptions: New sucralfate [Carafate] 100 mg/mL suspension 10 ml PO BID Qty: 420 0RF No Action aspirin [Adult Aspirin Regimen] 81 mg tablet,delayed release (DR/EC) 81 mg PO DAILY Qty: 90 3RF lubiprostone [Amitiza] 24 mcg capsule 24 mcg PO BID PRN (Reason: Constipation) Qty: 60 2RF cholecalciferol (vitamin D3) 125 mcg (5,000 unit) capsule 125 mcg PO DAILY 90 Days Qty: 90 1RF thiamine HCl (vitamin B1) 100 mg tablet 100 mg PO DAILY 90 Days Qty: 90 0RF cyanocobalamin (vitamin B-12) [Vitamin B-12] 500 mcg tablet 500 mcg PO DAILY Qty: 90 0RF zinc gluconate 50 mg tablet 50 mg PO DAILY Qty: 60 0RF hydralazine 25 mg tablet 25 mg PO BID 30 Days Qty: 60 5RF insulin lispro [Humalog U-100 Insulin] 100 unit/mL Solution 15 unit SUBCUT TID metoprolol succinate 100 mg tablet extended release 24 hr 100 mg PO DAILY gabapentin 100 mg capsule 100 mg PO BEDTIME albuterol sulfate 90 mcg/actuation HFA aerosol inhaler 2 puff inhalation Q4-6H PRN (Reason: Wheezing) fluticasone propionate 110 mcg/actuation HFA aerosol inhaler 1 puff inhalation BID Toujeo Max U-300 SoloStar 300 unit/mL (3 mL) insulin pen 60 unit subcut DAILY Humalog U-100 Insulin 100 unit/mL cartridge 5 unit subcut TID lisinopril 10 mg tablet 10 mg PO DAILY atorvastatin 40 mg tablet 40 mg PO BEDTIME Lantus U-100 Insulin 100 unit/mL solution subcut Jardiance 10 mg tablet 0 mg PO aripiprazole 5 mg tablet 5 mg PO DAILY omeprazole 40 mg capsule,delayed release(DR/EC) 40 mg PO BID melatonin 10 mg capsule 10 mg PO BEDTIME PRN Referrals: Festus Sellers MD [Primary Care Provider] -
[2023-12-11] MEDS: Lidocaine HCl Viscous 2 % 15 ML SOLUTION 10 ML MUCOUS MEM (05:58)
[2023-12-11] MEDS: Magnesium Hydrox/Alum Hydrox 30 ML ORAL.SUSP PO (05:58)
[2023-12-11] MEDS: Sucralfate Oral Suspension 1 GM/10 ML ORAL.SUSP PO (05:58)
== END 2023-12-11 07:34 | disposition home or self-care (01) ==
PROVIDERS: Emergency Provider Student in an Organized Health Care Education/Training Program; PCP Pathology Anatomic Pathology & Clinical Pathology
DX: K25.9 Gastric ulcer, unspecified as acute or chronic, without hemorrhage or perforation (principal); K29.60 Other gastritis without bleeding; K21.9 Gastro-esophageal reflux disease without esophagitis; K59.00 Constipation, unspecified
CPT/HCPCS: 36415; 74018; 80048; 80076; 81001; 83690; 85025; 99283; 99284

== ENCOUNTER 2024-01-17 11:56 | Outpatient (AMB) | payer OTHER, SELFPAY ==
[2024-01-17 12:11] VITALS: BP 147/70; PULSE 57; BMI 40.6
--- NOTE | 2024-01-17 12:11 | A.OFFVIS_ITS ---
Intake Vital Signs 01/17/24 12:11 Height 5 ft 6 in Weight 251 lb 5.231 oz BMI 40.6 BP 147/70 H Blood Pressure Location Lt brachial Position Sitting Pulse 57 Intake Visit Reasons: Abdominal pain Intake Note: Lorrie presents in office today in follow up of abdominal pain. CC: Patient states that in November she was having abdominal pain for 3 weeks. She went to the ER x3 times with abdominal pain. She feels better now and states last time she had pain was about 3 weeks ago. Per patient she starting having fecal incontinence and water comes out and she is having a lot of nausea. 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 RECAP--index visit 08/2010 ? She had epigastric pain going into the back for few days 1 month ago and she was admitted for 2-3 d and she was told she had acute pancreatitis, ?from trulicity ? she then stopped trulicity but then she had another similar attack 2 weeks ago again at [facility] and was sent home, but then went back and admitted for 1-2 d and she was told it was again pancreatitis ? right now she finds her appetite is poor, as food makes pain worse, and she has nausea. she denies diarrhea or constipation, takes lubiprostone for years prn ? weight is going down, 4-5#, pain right now is more ruq, and in back as well. ? food makes it worse, can be with bloating ? colonoscopy 2016 with polyp removed, unsure if ever had egd. ? She was in [place] 08/08 and had abdominal pain similar to pancreatitis pain and had MRCP with no choledocholithiasis and mild interstitial pancreatitis, ?mild bile dilation she did say that her mother had pancreatitis an sister had recurrent pacnreatitis as well TESTS: MRI-08/2019-normal GES: 2020-- nml ?EGd-01/2020-with chronic gastritis, advised to change PPI, but increased prilosec instead due to pt request ?MRI 2019--nml pancreas HIDA: 2021-- normal, patent CBD INTERIM: she has had abdominal pain last 1-2 months she has had many visits to the ED was in epigastric area going into the back had CT twice in [place] with ?liver inflammation she has nausea stool is loose no blood in stools EXAM: GENERAL: The patient is well developed and nontoxic- vitilligo VITAL SIGNS:see workflow HEENT: Nonicteric sclerae, PERRLA, EOMI. Oropharynx clear. Moist mucous membranes. Conjunctivae appear well perfused. No thyroid mass. CHEST: Chest wall is nontender. HEART: Regular rate and rhythm without murmurs. LUNGS: Clear to auscultation bilaterally. ABDOMEN: Soft, positive bowel sounds, nontender, no organomegaly.no flank tenderness SKIN: No rash, no excessive bruising, petechiae, or purpura. NEUROLOGIC: Cranial nerves II-XII intact without motor/sensory deficit. Psych: normal affect ? Assessments 1. 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 Bronchial asthma Smokers' cough Smoker Vitamin D deficiency CAD (coronary artery disease) Palpitations Atherosclerotic cardiovascular disease HTN (hypertension) Diabetes mellitus, type II CAROL (obstructive sleep apnea) History of hepatitis C History of transesophageal echocardiography (KATIA) Surgical History Hx of right knee surgery Hx of left knee surgery H/O tricuspid valve repair History of colonoscopy History of cardiac cath History of cholecystectomy History of coronary artery bypass surgery History of appendectomy History of tonsillectomy History of tubal ligation Family History Father Pancreatic cancer Mother Breast cancer Diabetes Hypertension Social History Alcohol intake: never Patient Tobacco Use Status: Current everyday Tobacco user Tobacco use type: Cigarette Cigarettes Per Day: 4 Years Smoked: 44 Current occupational status: unemployed 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 Physical Exam Vital Signs: Last Vital Signs Pulse 57 01/17/24 12:11 BP 147/70 H 01/17/24 12:11 BMI result Body Mass Index 40.6 Assessment & Plan Assessment & Plan (1) Epigastric abdominal pain: Code(s): R10.13 - Epigastric pain Plan: see above Orders: Orders US abdomen complete Today R10.13 - Epigastric pain Medications: New ondansetron 4 mg PO Q8H 30 tabs 1RF Coding Level of Care Code Est Pt Level 4 (30334) Diagnoses Epigastric abdominal pain R10.13
== END 2024-01-17 13:49 | disposition home or self-care (01) ==
PROVIDERS: PCP Internal Medicine; Visit Provider Internal Medicine Gastroenterology
DX: R10.13 Epigastric pain (principal)
CPT/HCPCS: 99214

== ENCOUNTER → 2024-01-17 11:56 | Outpatient (BNVA) | payer OTHER, SELFPAY | PROVIDERS: PCP Internal Medicine; Visit Provider Internal Medicine Gastroenterology | DX: R10.13 Epigastric pain (principal) | CPT/HCPCS: 99212 ==

== ENCOUNTER 2024-02-05 08:22 | Outpatient (REF) | payer OTHER, SELFPAY ==
--- NOTE | ~2024-02-05 | US_ITS ---
EXAMINATION: US ABDOMEN COMPLETE CLINICAL INFORMATION: Epigastric pain. Abnormal LFTs. Status post cholecystectomy. COMPARISON: X-ray abdomen KUB 12/11/2023. Ultrasound abdomen complete with elastography 06/25/2023 and 07/27/2020. MRI abdomen 08/16/2020. CT abdomen and pelvis 09/21/2015. TECHNIQUE: Real-time imaging of the abdominal viscera. FINDINGS: PANCREAS: Visualized portions of the pancreatic head and body are normal in appearance. The pancreatic tail was obscured by overlying bowel gas and therefore is not accurately evaluated. ABDOMINAL AORTA: Visualized portion of the proximal mid abdominal aorta are normal in caliber. The distal abdominal aorta was obscured by overlying bowel gas and therefore cannot be accurately evaluated. INFERIOR VENA CAVA: Visualized portions are normal. LIVER: Normal. The liver is normal in size. The liver contour is normal. Parenchymal echogenicity is normal. No focal hepatic lesion. There is no intrahepatic biliary duct dilatation seen. GALLBLADDER: Surgically absent. COMMON BILE DUCT: Normal in caliber measuring 0.8 cm in diameter. RIGHT KIDNEY: Normal. No hydronephrosis. No renal calculi or focal parenchymal lesions. The kidney measures 9.3 cm in maximum dimension. LEFT KIDNEY: Normal. No hydronephrosis. No renal calculi or focal parenchymal lesions. The kidney measures 10.5 cm in maximum dimension. SPLEEN: Normal. The spleen measures 7.9 cm in maximum dimension. FREE FLUID: None. US/US abdomen complete IMPRESSION: Unremarkable sonographic imaging of the abdomen.
== END 2024-02-05 08:23 | disposition home or self-care (01) ==
LOC: HO.US 08:22
PROVIDERS: PCP Internal Medicine; Visit Provider Internal Medicine Gastroenterology
DX: R10.13 Epigastric pain (principal)
CPT/HCPCS: 76700

== ENCOUNTER 2024-02-06 09:19 | Day surgery (SDC) | payer OTHER, SELFPAY ==
[2024-02-04 14:32] VITALS: BMI 40.5
--- NOTE | 2024-02-05 09:16 | HO.ANESPROP2 ---
Documented by User: Caro Millan NP 02/05/24 09:24 HPI - Anesthesia Eval Consult details Narrative: 58yo F for Upper Endoscopy and Colonoscopy CABG in 2016. Follows [facility] cardiology. Last office visit 09/2023 with routine 6 month f/u CKD , Asthma/COPD , smoker DM2 Anesthesia Pre-Procedure Meds Is the patient on any of the following meds?: Any other SGL-1 drugs or drugs that delay gastric emptying (Jardiance) PMFSH Active Problems Active Problems: All Active Problems (Updated 02/04/24 @ 14:30 by Rossi Reid RN) Frequent loose stools (Acute) Epigastric abdominal pain (Acute) Localized osteoarthritis of right knee (Acute) Recurrent right knee instability (Acute) Posttraumatic stress disorder (Acute) Major depressive disorder, severe (Acute) Morbid obesity (Acute) Arthritis of carpometacarpal (CMC) joint of right thumb (Acute) Olecranon bursitis, right elbow (Acute) S/P medial meniscal repair (Acute) S/P reconstruction of anterior cruciate ligament (Acute) Pain of right thumb (Acute) Right wrist pain (Acute) Traumatic tear of medial collateral ligament of left knee (Acute) Tear of medial meniscus of left knee (Acute) Left ACL tear (Acute) Patellofemoral instability of left knee with pain (Acute) Dislocation of left patella (Acute) Recurrent pancreatitis (Acute) Patellar instability of right knee (Acute) Type 2 diabetes mellitus with unspecified complications (Acute) Essential hypertension (Acute) Status post tricuspid valve repair (Acute) Chest discomfort (Acute) Osteoarthritis of right knee (Acute) 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 (Acute) Tear of lateral meniscus of right knee (Acute) Tear of medial meniscus of right knee (Acute) CAD (coronary artery disease) (Acute) Vitamin D deficiency (Acute) History of coronary artery bypass surgery (Acute) H/O tricuspid valve repair (Acute) Past Medical History Medical History (Updated 02/06/24 @ 13:07 by Ines Mejia MD) H/O drug abuse GERD (gastroesophageal reflux disease) Chronic kidney disease 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 Bronchial asthma Smokers' cough Smoker Vitamin D deficiency CAD (coronary artery disease) Palpitations Atherosclerotic cardiovascular disease HTN (hypertension) Diabetes mellitus, type II CAROL (obstructive sleep apnea) History of hepatitis C History of transesophageal echocardiography (KATIA) Family History Family History Father Pancreatic cancer Mother Breast cancer Diabetes Hypertension Family history of problems with anesthesia: No Surgical History Surgical History History of esophagogastroduodenoscopy (EGD) Hx of right knee surgery Hx of left knee surgery H/O tricuspid valve repair History of colonoscopy History of cardiac cath History of cholecystectomy History of coronary artery bypass surgery History of appendectomy History of tonsillectomy History of tubal ligation History of Problems with Anesthesia: No Social History Social History Alcohol intake: never Patient Tobacco Use Status: Current everyday Tobacco user Tobacco use type: Cigarette Cigarettes Per Day: 10 Years Smoked: 44 Current occupational status: unemployed 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 Meds Allergies Allergy/AdvReac Type Severity Reaction Status Date / Time varenicline [From CHANTIX] Allergy Unknown RASH Verified 02/06/24 09:42 Home Medications Medication Instructions Recorded Confirmed Last Taken Type albuterol sulfate 90 mcg/actuation 2 puff inhalation Q4-6H PRN 08/17/20 02/06/24 Unknown History aerosol inhaler Wheezing fluticasone propionate 110 1 puff inhalation BID 08/17/20 02/06/24 Unknown History mcg/actuation HFA aerosol inhaler gabapentin 100 mg capsule 100 mg PO BEDTIME 08/17/20 02/06/24 Unknown History insulin glargine U-300 conc 300 100 unit subcut QAM 08/17/20 02/06/24 Unknown History unit/mL (3 mL) subcutaneous pen (Toujeo Max U-300 SoloStar) lisinopril 10 mg tablet 10 mg PO DAILY 08/17/20 02/06/24 Unknown History metoprolol succinate 100 mg 100 mg PO DAILY 08/17/20 02/06/24 02/06/24 07:00 History tablet,extended release 24 hr insulin lispro 100 unit/mL 15 unit subcut TID 09/15/20 02/06/24 09/15/20 05:30 History subcutaneous solution (Humalog 7 units U-100 Insulin) atorvastatin 40 mg tablet 40 mg PO BEDTIME 08/29/21 02/06/24 Unknown History empagliflozin 10 mg tablet 10 mg PO QAM 08/29/21 02/06/24 02/02/24 History (Jardiance) omeprazole 40 mg capsule,delayed 40 mg PO BID 05/10/23 02/06/24 02/06/24 07:00 History release melatonin 10 mg capsule 10 mg PO BEDTIME PRN Insomnia 10/07/23 02/06/24 Unknown History baclofen 10 mg tablet 10 mg PO TID PRN muscle spasm 02/06/24 02/06/24 Unknown History Exam Height,Weight and Vital Signs: Height 5 ft 6 in Weight 113.852 kg Pertinent Lab Results Pertinent Lab Results: Laboratory Tests 12/10/23 22:27 WBC 11.6 H Hgb 15.3 Hct 47.2 H Plt Count 267 Sodium 138 Potassium 4.2 Chloride 103 Carbon Dioxide 22 BUN 20 H Creatinine 1.85 H Narrative Narrative: Per 09/2023 cardiology office visit echocardiogram was done on 08/12/2023 showing EF 55-60%, no valve abnormalities, tricuspid valve repair noted, wall motion abnormality could not be excluded. A pharmacological nuclear stress test was done 09/11/2023 showing normal myocardial perfusion imaging, EF 67%. EKG done on her today 09/2023 showing sinus tachycardia, pulmonary disease pattern, no ischemic findings which is unchanged from prior, rate 112 Assessment and Plan Assessment Anesthesia Assessment: Chart Reviewed Final Anesthetic Review Family History of Problems with Anesthesia: No History of Problems with Anesthesia: No Documented by User: Ines Mejia MD 02/06/24 13:11 HPI - Anesthesia Eval Anesthesia Pre-Procedure Meds If Yes to any meds - educate patient: Pt education - increased risk of aspiration PMFSH Active Problems Active Problems: All Active Problems (Updated 02/06/24 @ 10:15 by Ines Mejia MD) Frequent loose stools (Acute) Epigastric abdominal pain (Acute) Localized osteoarthritis of right knee (Acute) Recurrent right knee instability (Acute) Posttraumatic stress disorder (Acute) Major depressive disorder, severe (Acute) Morbid obesity (Acute) BMI 41 Arthritis of carpometacarpal (CMC) joint of right thumb (Acute) Olecranon bursitis, right elbow (Acute) S/P medial meniscal repair (Acute) S/P reconstruction of anterior cruciate ligament (Acute) Pain of right thumb (Acute) Right wrist pain (Acute) Traumatic tear of medial collateral ligament of left knee (Acute) Tear of medial meniscus of left knee (Acute) Left ACL tear (Acute) Patellofemoral instability of left knee with pain (Acute) Dislocation of left patella (Acute) Recurrent pancreatitis (Acute) Patellar instability of right knee (Acute) Type 2 diabetes mellitus with unspecified complications (Acute) Essential hypertension (Acute) Status post tricuspid valve repair (Acute) Chest discomfort (Acute) Osteoarthritis of right knee (Acute) 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 (Acute) Tear of lateral meniscus of right knee (Acute) Tear of medial meniscus of right knee (Acute) CAD (coronary artery disease) (Acute)- denies recent chest pain related to geart Vitamin D deficiency (Acute) History of coronary artery bypass surgery (Acute) H/O tricuspid valve repair (Acute) CAROL on CPAP Smoker Past Medical History Medical History (Updated 02/06/24 @ 13:07 by Ines Mejia MD) H/O drug abuse GERD (gastroesophageal reflux disease) Chronic kidney disease 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 Bronchial asthma Smokers' cough Smoker Vitamin D deficiency CAD (coronary artery disease) Palpitations Atherosclerotic cardiovascular disease HTN (hypertension) Diabetes mellitus, type II CAROL (obstructive sleep apnea) History of hepatitis C History of transesophageal echocardiography (KATIA) Family History Family History Father Pancreatic cancer Mother Breast cancer Diabetes Hypertension Family history of problems with anesthesia: No Surgical History Surgical History History of esophagogastroduodenoscopy (EGD) Hx of right knee surgery Hx of left knee surgery H/O tricuspid valve repair History of colonoscopy History of cardiac cath History of cholecystectomy History of coronary artery bypass surgery History of appendectomy History of tonsillectomy History of tubal ligation History of Problems with Anesthesia: No Social History Social History Alcohol intake: never Patient Tobacco Use Status: Current everyday Tobacco user Tobacco use type: Cigarette Cigarettes Per Day: 10 Years Smoked: 44 Current occupational status: unemployed 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 Meds Allergies Allergy/AdvReac Type Severity Reaction Status Date / Time varenicline [From CHANTIX] Allergy Unknown RASH Verified 02/06/24 09:42 Home Medications Medication Instructions Recorded Confirmed Last Taken Type albuterol sulfate 90 mcg/actuation 2 puff inhalation Q4-6H PRN 08/17/20 02/06/24 Unknown History aerosol inhaler Wheezing fluticasone propionate 110 1 puff inhalation BID 08/17/20 02/06/24 Unknown History mcg/actuation HFA aerosol inhaler gabapentin 100 mg capsule 100 mg PO BEDTIME 08/17/20 02/06/24 Unknown History insulin glargine U-300 conc 300 100 unit subcut QAM 08/17/20 02/06/24 Unknown History unit/mL (3 mL) subcutaneous pen (Toujeo Max U-300 SoloStar) lisinopril 10 mg tablet 10 mg PO DAILY 08/17/20 02/06/24 Unknown History metoprolol succinate 100 mg 100 mg PO DAILY 08/17/20 02/06/24 02/06/24 07:00 History tablet,extended release 24 hr insulin lispro 100 unit/mL 15 unit subcut TID 09/15/20 02/06/24 09/15/20 05:30 History subcutaneous solution (Humalog 7 units U-100 Insulin) atorvastatin 40 mg tablet 40 mg PO BEDTIME 08/29/21 02/06/24 Unknown History empagliflozin 10 mg tablet 10 mg PO QAM 08/29/21 02/06/24 02/02/24 History (Jardiance) omeprazole 40 mg capsule,delayed 40 mg PO BID 05/10/23 02/06/24 02/06/24 07:00 History release melatonin 10 mg capsule 10 mg PO BEDTIME PRN Insomnia 10/07/23 02/06/24 Unknown History baclofen 10 mg tablet 10 mg PO TID PRN muscle spasm 02/06/24 02/06/24 Unknown History Exam Height,Weight and Vital Signs: Height 5 ft 6 in Weight 113.852 kg Vital Signs Temp Pulse Resp BP Pulse Ox O2 Del Method 97.7 F 67 17 108/61 96 Room Air 02/06/24 09:52 02/06/24 09:52 02/06/24 09:52 02/06/24 09:52 02/06/24 09:52 02/06/24 09:52 Pertinent Lab Results Pertinent Lab Results: Laboratory Tests 12/10/23 22:27 WBC 11.6 H Hgb 15.3 Hct 47.2 H Plt Count 267 Sodium 138 Potassium 4.2 Chloride 103 Carbon Dioxide 22 BUN 20 H Creatinine 1.85 H Lab Results 02/06/24 Range/Units 10:02 POC Glucose 168 H (60-115) mg/dL Airway Mallampati Class: III TM Dist: >3cm Neck ROM: Full Loose/Missing/Broken Teeth: Yes Heart: RRR Lungs: CTAB Assessment and Plan Assessment Anesthesia Assessment: Anesthesia Plan Discussed and Chart Reviewed Final Anesthetic Review Family History of Problems with Anesthesia: No History of Problems with Anesthesia: No NPO: Yes ASA Class: III Final Preanesthetic Review: No Changes in Pt Med Stat, Meds/Allgs Chart Reviewed, Consent Obtained/Reviewed and Anes Risks/Benef Reviewed Patient Risk: Intermediate Procedure Risk: Low Assessment/Block/Sedation in SS: Assess/Block/Sedation-SS Anesthetic Plan Anesthetic Plan: TIVA Disposition: Standard PACU
[2024-02-06 09:47] VITALS: BMI 41.0
[2024-02-06 09:52] VITALS: BP 108/61; PULSE 67; RESP 17; TEMP 36.5; O2SAT 96
[2024-02-06 10:09] LABS: Glucose, Whole Blood 168 mg/dL (60-115)
[2024-02-06] MEDS: Lactated Ringers 1,000 ML 100 ML IVCONT (10:12)
--- NOTE | 2024-02-06 10:34 | MHC.SHP ---
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 Bronchial asthma Smokers' cough Smoker Vitamin D deficiency CAD (coronary artery disease) Palpitations Atherosclerotic cardiovascular disease HTN (hypertension) Diabetes mellitus, ty) History of Previous Operations: Relevant previous surgery/procedure and date(s) (History of esophagogastroduodenoscopy (EGD) Hx of right knee surgery Hx of left knee surgery H/O tricuspid valve repair History of colonoscopy History of cardiac cath History of cholecystectomy History of coronary artery bypass surgery History of appendectomy History of tonsillectomy History of tuba) Allergies: Allergies Allergy/AdvReac Type Severity Reaction Status Date / Time varenicline [From CHANTIX] Allergy Unknown RASH Verified 02/06/24 09:42 Review of Systems Sugical H&P ROS: Negative: Constitution, Cardiovascular, Respiratory, Neurological, Psychiatric, Hem-Onc, Allergic/Immunologic, Gastrointestinal, Genitourinary, Musculoskeletal, Integumentary, Endocrine and Eyes/Ears/Nose/Throat Exam Surgical H&P Exam: Normal: HEENT, Normal: Heart, Normal: Lungs, Normal: Extremities, Normal: Abdomen, Normal: Skin and Normal: Neurological Plan Diagnosis/Plan: Unchanged Time Spent With Patient Time: Total time managing care of this patient today ____ minutes.
--- NOTE | 2024-02-06 11:17 | W.PM.OPN ---
Operative Note Operative Note Date of Service: 02/06/24 Narrative: Operative Information Procedure Description: EGD, Colonoscopy Indication: abdominal pain Anesthesia: MAC FLEXIBLE TRANSORAL UPPER GASTROINTESTINAL ENDOSCOPY AND COLONOSCOPY PROCEDURE NOTE UPPER ENDOSCOPY Consent: Indications for the procedure and potential complications of bleeding, perforation, reaction to medications and missed diagnosis were discussed with the patient and informed consent was obtained. Instrument: Olympus GIF H 190 J mid size upper endoscope Monitoring: Vital signs and clinical assessment, continuous EKG monitoring, Pulse oximetry, Carbon Dioxide monitoring and blood pressure monitoring were done throughout the procedure. Procedure: The patient was placed in the left lateral decubitis position and pre-procedure medications were administered and a bite block was placed. The endoscope was inserted into the mouth and advanced under direct vision to the third part of duodenum. A careful inspection was made as the upper endoscope was withdrawn including a retroflexed examination of the proximal stomach; Findings and interventions are described below. Findings: Larynx:normal Esophagus: GE junction at 37 cm, diaphragm hiatus at 37 cm, normal mucosa Stomach: Patchy pallor consistent with ischemia. Biopsies were obtained. Grade 2 flap valve on retroflexed examination of the cardia. Duodenum: Normal bulb and descending duodenum, bx taken Intervention: Biopsies as noted above, COLONOSCOPY Instrument: Olympus variable stiffness pediatric scope 190L Colonoscopy Monitoring: Vital signs and clinical assessment, continuous EKG monitoring, Pulse oximetry, Carbon Dioxide monitoring and blood pressure monitoring were done throughout the procedure. Colon withdrawal time was 11 minutes. Procedure: The patient was placed in the left lateral decubitis position and pre-procedure medications were administered. After a digital rectal examination of the ano-rectum, the video colonoscope was inserted into the rectum and advanced through the colon to the cecum/TI. The colonoscope was slowly withdrawn in a retrograde panoramic fashion and the colon mucosa was carefully examined including a retroflexed view of the rectum. Findings and interventions are described below. Procedure Difficulty:moderate Findings: Terminal Ileum-not intubated Random colon bx taken Cecum:normal Ascending Colon: normal Transverse Colon -normal Descending Colon:normal Sigmoid Colon: normal Rectum: Retroflexion with small internal hemorrhoids, grade I Anorectum - normal Colon preparation: [place] Bowel Preparation Scale Right colon; 1-2 Transverse colon: 1-2 Left colon; 1-2 (0 = Unprepared colon segment with mucosa not seen due to solid stool that cannot be cleared. 1 = Portion of mucosa of the colon segment seen, but other areas of the colon segment not well seen due to staining, residual stool and/or opaque liquid. 2 = Minor amount of residual staining, small fragments of stool and/or opaque liquid, but mucosa of colon segment seen well. 3 = Entire mucosa of colon segment seen well with no residual staining, small fragments of stool or opaque liquid) Impression and Post Procedure Diagnosis: Endoscopy Findings: ischemic gastropathy Colonoscopy Findings: internal hemorrhoids Plan: Await Pathology results Repeat Colonoscopy in 1-2 years due to fair prep or earlier if clinically indicated High fiber diet leaflet avoid straining at stool, epsom salts and sitz bath, anusol supps or cream US duplex to assess for ischemia Above findings were reviewed with the patient and relevant handouts were provided if indicated.
[2024-02-06 11:24] VITALS: BP 94/58; PULSE 67; RESP 12; TEMP 36.1; O2SAT 97
== END 2024-02-06 12:02 | disposition home or self-care (01) ==
PROVIDERS: PCP Internal Medicine; Visit Provider Internal Medicine Gastroenterology
PROC: (CPT 45380; principal; 2024-02-06 12:30)
DX: R19.5 Other fecal abnormalities (principal); K64.0 First degree hemorrhoids; R10.13 Epigastric pain; K31.89 Other diseases of stomach and duodenum; K44.9 Diaphragmatic hernia without obstruction or gangrene; I12.9 Hypertensive chronic kidney disease with stage 1 through stage 4 chronic kidney disease, or unspecified chronic kidney disease; E11.22 Type 2 diabetes mellitus with diabetic chronic kidney disease; N18.9 Chronic kidney disease, unspecified; I25.10 Atherosclerotic heart disease of native coronary artery without angina pectoris; Z95.1 Presence of aortocoronary bypass graft; Z79.4 Long term (current) use of insulin; Z79.84 Long term (current) use of oral hypoglycemic drugs; G47.33 Obstructive sleep apnea (adult) (pediatric); J45.909 Unspecified asthma, uncomplicated; Z99.89 Dependence on other enabling machines and devices; Z79.51 Long term (current) use of inhaled steroids; Z79.899 Other long term (current) drug therapy; Z88.8 Allergy status to other drugs, medicaments and biological substances; Z86.19 Personal history of other infectious and parasitic diseases; Z90.49 Acquired absence of other specified parts of digestive tract; Z98.890 Other specified postprocedural states; F17.210 Nicotine dependence, cigarettes, uncomplicated
CPT/HCPCS: 45380; 43239; 82947; 88305; 88313; 88342; J1596; J2250; J2704

== ENCOUNTER → 2024-02-06 09:19 | Outpatient (BNV) | payer OTHER, SELFPAY | PROVIDERS: PCP Internal Medicine; Visit Provider Internal Medicine Gastroenterology | DX: R10.13 Epigastric pain (principal); K31.9 Disease of stomach and duodenum, unspecified; K64.0 First degree hemorrhoids | CPT/HCPCS: 43239; 45380 ==

== ENCOUNTER 2024-03-11 07:40 | Outpatient (REF) | payer OTHER, SELFPAY ==
--- NOTE | ~2024-03-11 | US_ITS ---
EXAMINATION: DUPLEX DOPPLER MESENTERIC ARTERIES CLINICAL INFORMATION: Abdominal pain. COMPARISON: None TECHNIQUE: Duplex Doppler ultrasound evaluation of the abdominal aorta and mesenteric arteries. FINDINGS: AORTA: Normal in caliber without significant atherosclerotic plaque. Normal arterial waveforms. Proximal to SMA: 77.4 cm/s Distal to SMA: 114 cm/s CELIAC: Inspiration supine: 189 cm/s Inspiration erect: 105 cm/s Expiration supine: 267 cm/s Expiration erect: 128 cm/s SUPERIOR MESENTERIC ARTERY: Proximal: 189 cm/s Mid: 151 cm/s Distal: 158 cm/s INFERIOR MESENTERIC ARTERY: Not visualized SPLENIC ARTERY: 159 cm/s HEPATIC ARTERY: 177 cm/s US/US SMA IMPRESSION: Elevated velocities in the celiac artery, especially with expiration and supine position which corrects on upright positioning. Findings concerning for median arcuate ligament syndrome
== END 2024-03-11 07:41 | disposition home or self-care (01) ==
LOC: HO.US 07:40
PROVIDERS: PCP Internal Medicine; Visit Provider Internal Medicine Gastroenterology
DX: R10.13 Epigastric pain (principal)
CPT/HCPCS: 93976

== ENCOUNTER 2024-03-13 10:46 | Outpatient (AMB) | payer OTHER, SELFPAY ==
--- NOTE | 2024-03-13 10:47 | MHC.OFFVIS ---
Vital Signs 03/13/24 10:49 Height 5 ft 6 in Weight 253 lb 8.505 oz BMI 40.9 BP 139/60 Blood Pressure Location Lt brachial Position Sitting Pulse 62 Intake Visit Reasons: 8 week follow up Intake Note: Lorrie presents in the office as a 8 week follow up. CC: no concerns just a follow up. 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 she denies diarrhea or constipation, takes lubiprostone for years prn weight is going down, 4-5#, pain right now is more ruq, and in back as well. food makes it worse, can be with bloating colonoscopy 2016 with polyp removed, unsure if ever had egd. She was in [place] 08/08 and had abdominal pain similar to pancreatitis pain and had MRCP with no choledocholithiasis and mild interstitial pancreatitis, ?mild bile dilation she did say that her mother had pancreatitis an sister had recurrent pacnreatitis as well HAd EGD with ischemic appearing stromach and nml colo US doppler with possible MALS TESTS: MRI-08/2019-normal GES: 2020-- nml EGd-01/2020-with chronic gastritis, advised to change PPI, but increased prilosec instead due to pt request MRI 2019--nml pancreas HIDA: 2021-- normal, patent CBD INTERIM: she still has abdominal pain for last 3 months or so apin in epigastric area going into the back, bloating she has a lot of nausea stool is better now--no diarrhea no blood in stools EXAM: GENERAL: The patient is well developed and nontoxic- vitilligo VITAL SIGNS:see workflow HEENT: Nonicteric sclerae, PERRLA, EOMI. Oropharynx clear. Moist mucous membranes. Conjunctivae appear well perfused. No thyroid mass. CHEST: Chest wall is nontender. HEART: Regular rate and rhythm without murmurs. LUNGS: Clear to auscultation bilaterally. ABDOMEN: Soft, positive bowel sounds, nontender, no organomegaly.no flank tenderness SKIN: No rash, no excessive bruising, petechiae, or purpura. NEUROLOGIC: Cranial nerves II-XII intact without motor/sensory deficit. Psych: normal affect Assessments 1. 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 Bronchial asthma Smokers' cough Smoker Vitamin D deficiency CAD (coronary artery disease) Palpitations Atherosclerotic cardiovascular disease HTN (hypertension) Diabetes mellitus, type II CAROL (obstructive sleep apnea) History of hepatitis C History of transesophageal echocardiography (KATIA) Surgical History History of esophagogastroduodenoscopy (EGD) Hx of right knee surgery Hx of left knee surgery H/O tricuspid valve repair History of colonoscopy History of cardiac cath History of cholecystectomy History of coronary artery bypass surgery History of appendectomy History of tonsillectomy History of tubal ligation Family History Father Pancreatic cancer Mother Breast cancer Diabetes Hypertension Social History Alcohol intake: never Patient Tobacco Use Status: Current everyday Tobacco user Tobacco use type: Cigarette Cigarettes Per Day: 10 Years Smoked: 44 Current occupational status: unemployed 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 Physical Exam Vital Signs: Last Vital Signs Pulse 62 03/13/24 10:49 BP 139/60 03/13/24 10:49 BMI result Body Mass Index 40.9 Assessment & Plan Assessment & Plan (1) Epigastric abdominal pain: Code(s): R10.13 - Epigastric pain Category: Medical Plan: see above Orders: Orders CT angio abdomen Today R10.13 - Epigastric pain Medications: New pentoxifylline ER must administer with a meal/food 400 mg PO TID 90 tabs 1RF Coding Level of Care Code Est Pt Level 3 (33672) Diagnoses Epigastric abdominal pain R10.13
[2024-03-13 10:49] VITALS: BP 139/60; PULSE 62; BMI 40.9
== END 2024-03-13 11:22 | disposition home or self-care (01) ==
PROVIDERS: PCP Internal Medicine; Visit Provider Internal Medicine Gastroenterology
DX: R10.13 Epigastric pain (principal)
CPT/HCPCS: 99213

== ENCOUNTER → 2024-03-13 10:46 | Outpatient (BNVA) | payer OTHER, SELFPAY | PROVIDERS: PCP Internal Medicine; Visit Provider Internal Medicine Gastroenterology | DX: R10.13 Epigastric pain (principal) | CPT/HCPCS: 99212 ==

== ENCOUNTER 2024-03-30 09:49 | Outpatient (REF) | payer OTHER, SELFPAY ==
[2024-03-30 11:34] LABS: Blood Urea Nitrogen 24 mg/dL (9-16); Estimated Glomerular Filt Rate 41
== END 2024-03-30 09:50 | disposition home or self-care (01) ==
LOC: HO.LAB 09:49
PROVIDERS: PCP Internal Medicine; Visit Provider Internal Medicine Gastroenterology
DX: R10.13 Epigastric pain (principal)
CPT/HCPCS: 36415; 82565; 84520

== ENCOUNTER 2024-05-04 13:55 | Outpatient (REF) | payer OTHER, SELFPAY ==
[2024-05-04 15:05] LABS: Blood Urea Nitrogen 23 mg/dL (9-16); Estimated Glomerular Filt Rate 27
== END 2024-05-04 13:56 | disposition home or self-care (01) ==
LOC: HO.LAB 13:55
PROVIDERS: PCP Internal Medicine; Visit Provider Internal Medicine Gastroenterology
DX: R10.13 Epigastric pain (principal)
CPT/HCPCS: 36415; 82565; 84520

== ENCOUNTER 2024-05-05 09:47 | Outpatient (REF) | payer OTHER, SELFPAY | END 2024-05-05 09:48 | disposition home or self-care (01) | LOC: HO.CT 09:47 | PROVIDERS: PCP Internal Medicine; Visit Provider Internal Medicine Gastroenterology | DX: Z13.89 Encounter for screening for other disorder (principal) ==

== ENCOUNTER 2024-07-10 13:45 | Outpatient (AMB) | payer OTHER, SELFPAY ==
[2024-07-10 13:59] VITALS: BP 108/62; PULSE 69; BMI 40.4
--- NOTE | 2024-07-10 13:59 | MHC.OFFVIS ---
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 Allergies varenicline [From CHANTIX] Allergy (Unknown, Verified 07/10/24 14:01) RASH Medication List - Last Reconciled 07/10/24 by TAIWO MontemayorC albuterol sulfate 90 mcg/actuation 2 puffs inhalation Q4-6H PRN aspirin 81 mg PO DAILY atorvastatin 40 mg PO BEDTIME baclofen 10 mg PO TID PRN cholecalciferol (vitamin D3) 125 mcg PO DAILY 90 days cyanocobalamin (vitamin B-12) (Vitamin B-12) 500 mcg PO DAILY duloxetine 60 mg PO DAILY empagliflozin (Jardiance) 25 mg PO DAILY flash 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 (TurboTranslations Christina 2 [place]) As directed fluticasone furoate 200 mcg/actuation (Arnuity Ellipta) 1 inh inhalation DAILY gabapentin 100 mg PO BEDTIME glucagon (Gvoke HypoPen 2-Pack) mg subcut hydralazine 25 mg PO BID 90 days insulin aspart U-100 (Novolog FlexPen U-100 Insulin aspart) subcut insulin glargine U-300 conc (Toujeo Max U-300 SoloStar) 100 units subcut QAM lisinopril 10 mg PO DAILY lubiprostone (Amitiza) 24 mcg PO BID PRN melatonin 10 mg PO BEDTIME metoprolol succinate ER 100 mg PO DAILY omeprazole 40 mg PO BID ondansetron 4 mg PO Q8H pentoxifylline ER 400 mg PO TID 90 days HPI HPI 6 mth f/up(rs): Details: Lorrie is a 58-year-old female with past medical history of hypertension, hyperlipidemia, diabetes, obstructive sleep apnea, CAD with single-vessel Coronary artery bypass grafting, tricuspid valve repair who presents for follow-up. Her last prior visit was 10/07/2023. Today she reports that she continues to have periodic right sided chest discomfort only when her blood sugar is running 80 or below or is elevated. She says if she has low sugar and eat something the pain will go away. She says if she keeps her sugar in a normal range then she does not get the symptom.. She describes that pain as sharp and severe at times. It is not brought on by physical activity. She also describes a tightness in her left chest region which is tender to palpation. She says that she has had a mammogram and it is normal. This symptom is not worse with walking or stair climbing. It is present at most times and she feels it may be related to her large breasts. She has some shortness of breath with activity which is not new. She continues to smoke half a pack of cigarettes per day. No palpitations, presyncope, syncope, falls. No PND or edema. She sleeps with 2-3 pillows and on her side which is her norm. She is taking all meds as directed. She has issues with bilateral knee pain and her left knee cap pops out. She is currently wearing a brace. 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 She admits to being mostly sedentary. 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 Bronchial asthma Smokers' cough Smoker Vitamin D deficiency CAD (coronary artery disease) Palpitations Atherosclerotic cardiovascular disease HTN (hypertension) Diabetes mellitus, type II CAROL (obstructive sleep apnea) History of hepatitis C History of transesophageal echocardiography (KATIA) Surgical History History of esophagogastroduodenoscopy (EGD) Hx of right knee surgery Hx of left knee surgery H/O tricuspid valve repair History of colonoscopy History of cardiac cath History of cholecystectomy History of coronary artery bypass surgery History of appendectomy History of tonsillectomy History of tubal ligation Family History Father Pancreatic cancer Mother Breast cancer Diabetes Hypertension Social History Alcohol intake: never Patient Tobacco Use Status: Current everyday Tobacco user Tobacco use type: Cigarette Cigarettes Per Day: 10 Years Smoked: 44 Current occupational status: unemployed 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 Review of Systems Const All systems reviewed & are unremarkable except as noted in HPI and below ENT Denies dizziness Card Reports chest pain (Localized, left chest, worse with palpation), Denies chest pain at rest, Denies chest pain with activity, Denies rapid heart rate, Denies pedal edema, Denies edema, Denies leg edema, Denies lightheadedness, Denies palpitations, Denies dyspnea, Reports dyspnea on exertion and Denies orthopnea Resp Denies cough, Denies dyspnea and Reports dyspnea on exertion GI Denies hematochezia and Denies change in stool character Musc Details: Bilateral knee pain Reports abnormal gait, Denies limited range of motion, Denies muscle cramps, Denies muscle weakness, Denies numbness, Denies radiating pain into limb, Denies stiffness and Denies tingling Neuro Reports abnormal gait, Denies dizziness, Denies numbness and Denies tingling Endo Denies palpitations Physical Exam Vital Signs: Last Vital Signs Pulse 69 07/10/24 13:59 BP 108/62 07/10/24 13:59 BMI result Body Mass Index 40.4 Const General: cooperative, healthy appearing, comfortable and no acute distress Orientation/consciousness: patient oriented x3 Neck Neck: Yes normal visual inspection and Yes no JVD Resp Effort & Inspection: normal respiratory effort Auscultation: clear to auscultation bilaterally, no crackles, no rales, no rhonchi and no wheezes Cardio Jugular venous distension: no JVD Rate: regular rate Rhythm: regular rhythm Heart sounds: S1 normal heart sound present, S2 normal heart sound present, no murmurs and no rubs Neuro General: patient oriented x3 Extrem General: Yes normal to inspection and No no pedal edema Psych Appearance: grossly normal Mental Status: mental status grossly normal Speech and movement: Normal speech and movement present Assessment & Plan Assessment & Plan (1) CAD (coronary artery disease): Code(s): I25.10 - Atherosclerotic heart disease of [place] coronary artery without angina pectoris Category: Medical Qualifiers: Associated angina: without angina Coronary Disease-Associated Artery/Lesion type: [place] artery [place] vs. transplanted heart: [place] heart Qualified Code(s): I25.10 - Atherosclerotic heart disease of [place] coronary artery without angina pectoris Plan: History of CAD with coronary artery bypass grafting, wilkinson to LAD in 2016 along with tricuspid valve repair. Other vessels reported as being normal at that time. Multiple cardiac risk factors including hypertension, hyperlipidemia, diabetes, obesity, smoking. Today she reports 2 types of chest discomfort. One is right-sided breast area pain that occurs when her blood sugar is high or low. The other is left-sided chest discomfort that is worse with palpation. She has no chest discomfort that sounds like angina. Last year for the symptom she underwent an echocardiogram on 08/12/2023 showing EF 55-60%, no valve abnormalities, tricuspid valve repair noted, wall motion abnormality could not be excluded. A pharmacological nuclear stress test was done 09/11/2023 showing normal myocardial perfusion imaging, EF 67%. Overall her symptoms have had no significant changes in the last 11 months. She has already discussed the chest discomfort with low blood sugars with her PCP who manages her diabetes. To me this does not sound like cardiac pain. The left-sided chest discomfort is more musculoskeletal in nature. Continue with strict risk factor modification. She is due for labs including LFT and lipid profile. Will place orders. Instructed on complete smoking cessation. She states she will continue to try. Continue aspirin indefinitely. Continue atorvastatin with ideal LDL goal less than 70. Continue metoprolol. Cardiology follow-up in 6 months, sooner if needed. Emergency care if ever needed for symptoms (2) History of coronary artery bypass [place]: [place] [facility] [place]s): Z95.1 - Presence of aortocoronary bypass graft Category: Surgical (3) Chest discomfort: Code(s): R07.89 - Other chest pain Category: Medical Plan: Atypical (4) H/O tricuspid valve repair: [place] [facility] [place]s): Z98.890 - Other specified postprocedural states Category: Surgical Plan: Functioning normally on last echocardiogram Plan Time spent on chart review, documentation, interview, assessment Orders: Orders Comprehensive Met. Panel Today I25.10 - Atherosclerotic heart disease of [place] coronary artery without angina pectoris Lipid Panel Today I25.10 - Atherosclerotic heart disease of [place] coronary artery without angina pectoris Coding Level of Care Code Est Pt Level 4 (14268) Diagnoses Coronary artery disease involving [place] coronary artery of [place] heart without angina pectoris I25.10 Associated angina: without angina Coronary Disease-Associated Artery/Lesion type: [place] artery [place] vs. transplanted heart: [place] heart History of coronary artery bypass surgery Z95.1 Chest discomfort R07.89 H/O tricuspid valve repair Z98.890 Time Spent (min) 28
== END 2024-07-10 14:31 | disposition home or self-care (01) ==
PROVIDERS: PCP Internal Medicine; Visit Provider Nurse Practitioner Family
DX: I25.10 Atherosclerotic heart disease of native coronary artery without angina pectoris (principal); Z95.1 Presence of aortocoronary bypass graft; R07.89 Other chest pain; Z98.890 Other specified postprocedural states
CPT/HCPCS: 99214

== ENCOUNTER → 2024-07-10 13:45 | Outpatient (BNVA) | payer OTHER, SELFPAY | PROVIDERS: PCP Internal Medicine; Visit Provider Nurse Practitioner Family | DX: I25.10 Atherosclerotic heart disease of native coronary artery without angina pectoris (principal); I10 Essential (primary) hypertension; E78.5 Hyperlipidemia, unspecified; E11.9 Type 2 diabetes mellitus without complications; G47.33 Obstructive sleep apnea (adult) (pediatric); R07.89 Other chest pain; F17.210 Nicotine dependence, cigarettes, uncomplicated; Z95.1 Presence of aortocoronary bypass graft; Z98.890 Other specified postprocedural states | CPT/HCPCS: 99212 ==

== ENCOUNTER 2024-07-21 13:26 | Outpatient (AMB) | payer OTHER, SELFPAY ==
--- NOTE | 2024-07-21 13:28 | MHC.OFFVIS ---
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 She believes she has a blocked artery. States when she is having pain she goes on a liquid diet. States she gets constant bloating. 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 This all began for workup for abdominal pain and an ultrasound was obtained with elevated velocities in the celiac axis. Upon discussion with her she has persistent pain. She tolerate small meals but can tolerate carbohydrates. It does cause some bloating. She has persistent pain which she describes may be unrelenting for nearly a month. This last episode she had abdominal pain which was more towards the left flank for 3 days. She subsequently went to [facility] and underwent a CT angiogram. 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 Bronchial asthma Smokers' cough Smoker Vitamin D deficiency CAD (coronary artery disease) Palpitations Atherosclerotic cardiovascular disease HTN (hypertension) Diabetes mellitus, type II CAROL (obstructive sleep apnea) History of hepatitis C History of transesophageal echocardiography (KATIA) Surgical History History of esophagogastroduodenoscopy (EGD) Hx of right knee surgery Hx of left knee surgery H/O tricuspid valve repair History of colonoscopy History of cardiac cath History of cholecystectomy History of coronary artery bypass surgery History of appendectomy History of tonsillectomy History of tubal ligation Family History Father Pancreatic cancer Mother Breast cancer Diabetes Hypertension Social History Alcohol intake: never Patient Tobacco Use Status: Current everyday Tobacco user Tobacco use type: Cigarette Cigarettes Per Day: 10 Years Smoked: 44 Current occupational status: unemployed 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 Review of Systems Const All systems reviewed & are unremarkable except as noted in HPI and below Reports no additional complaints ENT Reports Normal hearing present Card Denies chest pain, Denies chest pain at rest, Denies chest pain with activity and Denies pedal edema Resp Denies cough GI Denies abdominal pain Musc Denies abnormal gait, Denies muscle cramps and Denies radiating pain into limb Skin/Breast Denies skin ulcer and Denies wounds Neuro Reports Normal hearing present and Denies abnormal gait Psych Reports no additional complaints Physical Exam Const General: cooperative, healthy appearing and comfortable Orientation/consciousness: oriented to person, oriented to place and oriented to time HEENT Head: Yes normal to inspection Neck Neck: Yes normal visual inspection Carotids: no bruits Chest Chest palpation & inspection: normal inspection of the chest Resp Effort & Inspection: normal respiratory effort and able to speak in complete sentences Auscultation: clear to auscultation bilaterally, no crackles, no rales, no rhonchi and no wheezes Cardio Rate: regular rate Rhythm: regular rhythm Heart sounds: S1 normal heart sound present and S2 normal heart sound present Bruits: no carotid bruits Peripheral pulses: Peripheral pulses 2+ throughout GI Inspection: Yes normal to inspection Skin Wounds: no wounds Hair: normal Neuro General: oriented to person, oriented to place and oriented to time Cranial nerves: Yes CN's II-XII intact bilaterally and Yes Normal hearing present Cognition (Neuro): normal cognition Motor exam (neuro): 5/5 motor strength present throughout Extrem Other: venous exam: No significant superficial varicosities or spider telangiectasias, minimal edema General: No clubbing, No cyanosis and No edema Psych Appearance: grossly normal Mental Status: mental status grossly normal Speech and movement: Normal speech and movement present Results Reviewed Results Reviewed: CT angiogram written report from [facility] dated 06/04/2024 demonstrates all 3 mesenteric axis is patent. Written report reviewed only Assessment & Plan Assessment & Plan (1) Abdominal pain: Code(s): R10.9 - Unspecified abdominal pain Category: Medical Qualifiers: Abdominal location: epigastric Qualified Code(s): R10.13 - Epigastric pain Plan: In short unclear etiology of abdominal pain. It does not appear vascular in nature as CT angiogram appeared within normal limits. I did discuss this in detail with the patient. She will follow up with us on an as-needed basis. Thank you for allowing us to assist in her care. If there are any questions or concerns please do not hesitate to contact Coding Level of Care Code New Pt Level 4 (89898) Diagnoses Epigastric pain R10.13 Abdominal location: epigastric
== END 2024-07-21 13:57 | disposition home or self-care (01) ==
PROVIDERS: PCP Internal Medicine; Visit Provider Surgery Vascular Surgery
DX: R10.13 Epigastric pain (principal)
CPT/HCPCS: 99204

== ENCOUNTER → 2024-07-21 13:26 | Outpatient (BNVA) | payer OTHER, SELFPAY | PROVIDERS: PCP Internal Medicine; Visit Provider Surgery Vascular Surgery | DX: R10.13 Epigastric pain (principal) | CPT/HCPCS: 99202 ==

== ENCOUNTER 2024-07-27 13:48 | Outpatient (AMB) | payer OTHER, SELFPAY ==
--- NOTE | 2024-07-27 13:50 | A.OFFVIS_ITS ---
Vital Signs 07/27/24 13:53 Height 5 ft 6 in Weight 249 lb 1.957 oz BMI 40.2 BP 140/63 H Blood Pressure Location Lt brachial Position Sitting Pulse 60 Intake Visit Reasons: 6 month follow up Intake Note: Lorrie presents in the office as a 6 month follow up. CC: She states that she is having discomfort in the stomach. She states that how it starts - she has constipation. She states that when she gets the pains it will last for 2-3 weeks and it happens once a month. In June it was the to the and today she is getting the discomfort in her abdomen. One time she had diarrhea for 3 days but it stopped - she states her issues are more on the constipation side. 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 Allergies varenicline [From CHANTIX] Allergy (Unknown, Verified 07/27/24 13:55) RASH HPI HPI 6 month follow up: Details: 59 yr old f w/CABG, asthma, DM, CAROL, cholecystectomy, ex drug user (17 yr clean) being seen for f/u RECAP- She had epigastric pain going into the back for few days and she was admitted for 2-3 d and she was told she had acute pancreatitis, ?from trulicity she then stopped trulicity but then she had another attack again at [facility] and was sent home, but then went back and admitted for 1-2 d and she was told it was again pancreatitis takes lubiprostone for years prn She was in [place] 08/08 and had abdominal pain similar to pancreatitis pain and had MRCP with no choledocholithiasis and mild interstitial pancreatitis, ?mild bile dilation she did say that her mother had pancreatitis an sister had recurrent pacnreatitis as well HAd EGD with ischemic appearing stromach and nml colo US doppler with possible MALS TESTS: MRI-08/2019-normal GES: 2019-- nml EGd-01/2020-with chronic gastritis, advised to change PPI, but increased prilosec instead due to pt request MRI 2019--nml pancreas HIDA: 2021-- normal, patent CBD INTERIM: she still has ongoing abdominal pain since Nov 2023, was having it before on and off but was never as bad it goes around into the back like a band can be sharp she still has nausea she takes zofran and it helps trental helps sometimes, but not that great denies fevers food can make the pain worse EXAM: GENERAL: The patient is well developed and nontoxic- vitilligo VITAL SIGNS:see workflow HEENT: Nonicteric sclerae, PERRLA, EOMI. Oropharynx clear. Moist mucous membranes. Conjunctivae appear well perfused. No thyroid mass. CHEST: Chest wall is nontender. HEART: Regular rate and rhythm without murmurs. LUNGS: Clear to auscultation bilaterally. ABDOMEN: Soft, positive bowel sounds, nontender, no organomegaly. tender left flank SKIN: No rash, no excessive bruising, petechiae, or purpura. NEUROLOGIC: Cranial nerves II-XII intact without motor/sensory deficit. Psych: normal affect Assessments 1. 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 Bronchial asthma Smokers' cough Smoker Vitamin D deficiency CAD (coronary artery disease) Palpitations Atherosclerotic cardiovascular disease HTN (hypertension) Diabetes mellitus, type II CAROL (obstructive sleep apnea) History of hepatitis C History of transesophageal echocardiography (KATIA) Surgical History History of esophagogastroduodenoscopy (EGD) Hx of right knee surgery Hx of left knee surgery H/O tricuspid valve repair History of colonoscopy History of cardiac cath History of cholecystectomy History of coronary artery bypass surgery History of appendectomy History of tonsillectomy History of tubal ligation Family History Father Pancreatic cancer Mother Breast cancer Diabetes Hypertension Social History Alcohol intake: never Patient Tobacco Use Status: Current everyday Tobacco user Tobacco use type: Cigarette Cigarettes Per Day: 10 Years Smoked: 44 Current occupational status: unemployed 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 Physical Exam Vital Signs: Last Vital Signs Pulse 60 07/27/24 13:53 BP 140/63 H 07/27/24 13:53 BMI result Body Mass Index 40.2 Assessment & Plan Assessment & Plan (1) Epigastric abdominal pain: Code(s): R10.13 - Epigastric pain Category: Medical Plan: see above Orders: Orders abdomen wo con 07/27/24 R10.13 - Epigastric pain Complete Blood Count Auto Diff 07/27/24 R10.13 - Epigastric pain Comprehensive Met. Panel 07/27/24 K75.81 - Nonalcoholic steatohepatitis (RDZ), R10.13 - Epigastric pain C Reactive Protein 07/27/24 R10.13 - Epigastric pain Erythrocyte Sedimentation Rate 07/27/24 R10.13 - Epigastric pain Ferritin 07/27/24 R10.13 - Epigastric pain Vitamin B12 and Folate 07/27/24 R10.13 - Epigastric pain TSH reflex Free T4 07/27/24 R10.13 - Epigastric pain JOE Reflex Titer and Pattern 07/27/24 R10.13 - Epigastric pain, R79.82 - Elevated C-reactive protein (CRP) UA CC w/rflx Micro + Cult 07/27/24 R10.13 - Epigastric pain, R30.0 - Dysuria Lactoferrin, Fecal, Quant. 07/27/24 K51.50 - Left sided colitis without complications, R10.13 - Epigastric pain Creatine Kinase Total 07/27/24 R10.13 - Epigastric pain Coding Level of Care Code Est Pt Level 4 (46310) Diagnoses Epigastric abdominal pain R10.13
[2024-07-27 13:53] VITALS: BP 140/63; PULSE 60; BMI 40.2
== END 2024-07-27 14:59 | disposition home or self-care (01) ==
PROVIDERS: PCP Internal Medicine; Visit Provider Internal Medicine Gastroenterology
DX: R10.13 Epigastric pain (principal)
CPT/HCPCS: 99214

== ENCOUNTER → 2024-07-27 13:48 | Outpatient (BNVA) | payer OTHER, SELFPAY | PROVIDERS: PCP Internal Medicine; Visit Provider Internal Medicine Gastroenterology | DX: R10.13 Epigastric pain (principal) | CPT/HCPCS: 99212 ==

== ENCOUNTER 2024-09-04 10:41 | Outpatient (REF) | payer OTHER, SELFPAY ==
--- NOTE | ~2024-09-04 | MR_ITS ---
EXAMINATION: MR ABDOMEN WITHOUT CONTRAST CLINICAL INFORMATION: Epigastric pain. COMPARISON: MRI dated August 16, 2020 TECHNIQUE: MR abdomen is performed without gadolinium contrast. FINDINGS: Submitted for interpretation on October 30, 2024. LIVER, GALLBLADDER, AND BILIARY TREE: Liver measures 13 cm. No intrahepatic biliary ductal dilatation. Flow-void signal within the portal vein, hepatic veins and intrahepatic portion of the IVC is normal. The common bile duct measures 6 mm. The gallbladder is absent. PANCREAS: No peripancreatic fluid collection. No main pancreatic ductal dilatation. SPLEEN: 6 cm. ADRENAL GLANDS: Soft tissue fullness with drop-off of the signal from the in and out of phase sequences. KIDNEYS AND URETERS: No hydronephrosis. Multifocal less than 1 cm fluid signal characteristic lesions. GASTROINTESTINAL TRACT: No intestinal obstruction pattern. Abundant stool. No ascites. ABDOMINAL WALL: There is a 1.5 cm defect in the epigastric region just below the sternum xiphoid with herniated fat. LYMPH NODES: No lymphadenopathy. VASCULAR: No aneurysm, abdominal aorta. OSSEOUS STRUCTURES: No bone marrow signal abnormality. MR/MR abdomen wo con IMPRESSION: Fat-containing epigastric hernia. Bilateral renal cysts. Electronically signed by: Henrique Cronin MD 10/30/2024 02:58 PM EST
== END 2024-09-04 10:42 | disposition home or self-care (01) ==
LOC: HO.MRI 10:41
PROVIDERS: PCP Internal Medicine; Visit Provider Internal Medicine Gastroenterology
DX: R10.13 Epigastric pain (principal)
CPT/HCPCS: 74181

== ENCOUNTER → 2024-09-04 10:53 | Outpatient (BNV) | payer OTHER, SELFPAY | PROVIDERS: PCP Internal Medicine; Visit Provider Radiology Diagnostic Radiology | DX: R10.13 Epigastric pain (principal) | CPT/HCPCS: 74181 ==

== ENCOUNTER 2024-10-07 07:57 | Outpatient (REF) | payer OTHER, SELFPAY ==
[2024-10-07 08:28] LABS: MANUAL DIFF FLAG NO
[2024-10-07 08:59] LABS: Basophils Absolute Auto 0.1 X10*3/uL (0.0-0.2); Basophils Percent Auto 0.8 % (0-2); Eosinophils Absolute Auto 0.2 X10*3/uL (0.0-0.4); Eosinophils Percent Auto 2.2 % (0-4); Hematocrit 43.1 % (37.0-47.0); Hemoglobin 14.4 g/dl (12.0-16.0); Imm Gran Abs Auto 0.04 X10*3/uL (0.00-0.03); Imm Gran Pct Auto 0.4 % (0.0-0.4); Lymphocytes Absolute Auto 2.2 X10*3/uL (1.2-4.9); Lymphocytes Percent Auto 24.4 % (20-40); Mean Corpuscular HGB Conc 33.4 g/dl (31.0-35.0); Mean Corpuscular Hemoglobin 30.8 pg (27.0-33.0); Mean Corpuscular Volume 92.3 fL (80.0-98.0); Monocytes Absolute Auto 0.7 X10*3/uL (0.1-1.2); Monocytes Percent Auto 7.2 % (2-11); Neutrophils Absolute Auto 5.9 x10*3/uL (2.0-8.3); Platelet Count 278 X10*3/uL (160-400); Red Blood Count 4.67 X10*6/uL (4.20-5.50); Red Cell Distribution Width 13.7 % (11.0-16.0); White Blood Count 9.1 X10*3/uL (4.8-10.8)
[2024-10-07 09:00] LABS: Appearance Urine Cloudy; Color Urine Yellow; Glucose Urine UA >=1000 mg/dL (Negative); Leukocyte Esterase Urine Negative (Negative); Nitrite Urine Negative (Negative); UMIC TRIGGER UACC YES; Urine Blood Negative (Negative); Urine Ketones Negative (Negative); Urine Protein 100 (2+) mg/dL (Neg-Trace)
[2024-10-07 09:16] LABS: Bacteria Urine 4+ (None Seen); Hyaline Casts Urine 0-2 /LPF (0-2); RBC Urine 0-2 /HPF (0-2); Squamous Epithelial Cell Urine >20 /HPF (0-2); WBC Urine 0-5 /HPF (0-5)
[2024-10-07 09:48] LABS: Erythrocyte Sedimentation Rate 24 MM/HR (0-20)
[2024-10-07 09:53] LABS: Ferritin 90 ng/mL (10-250); TSH reflex Free T4 2.69 uIU/mL (0.32-4.0)
[2024-10-07 09:55] LABS: Alanine Aminotransferase 27 U/L (0-31); Albumin Level 3.4 g/dL (3.5-5.0); Alkaline Phosphatase 177 U/L (39-117); Anion Gap 14 (12-20); Aspartate Amino Transferase 18 U/L (5-31); Bilirubin Total 0.4 mg/dL (0.0-1.0); Blood Urea Nitrogen 22 mg/dL (9-16); C Reactive Protein 1.27 mg/dL (< or = 0.50); Calcium 9.1 mg/dL (8.4-10.2); Carbon Dioxide 24 mmol/L (22-29); Chloride 104 mmol/L (96-108); Estimated Glomerular Filt Rate 33; Potassium 4.2 mmol/L (3.3-5.1); Sodium 138 mmol/L (135-145); Total Protein 6.8 g/dL (6.5-8.0)
[2024-10-07 10:00] LABS: Glucose Random 489 mg/dL (60-115)
[2024-10-07 10:08] LABS: Folate 9.1 ng/mL (> or = 4.0); Vitamin B12 413 pg/mL (200-900)
[2024-10-09 10:39] LABS: Anti Nuclear Antibody Screen NEGATIVE (NEGATIVE)
== END 2024-10-07 07:58 | disposition home or self-care (01) ==
LOC: HO.LAB 07:57
PROVIDERS: PCP Internal Medicine; Visit Provider Internal Medicine Gastroenterology
DX: K75.81 Nonalcoholic steatohepatitis (NASH) (principal); R10.13 Epigastric pain; R79.82 Elevated C-reactive protein (CRP); R30.0 Dysuria
CPT/HCPCS: 36415; 80053; 81001; 81003; 82550; 82607; 82728; 82746; 84443; 85025; 85652; 86038; 86140

== ENCOUNTER 2024-11-26 11:41 | Outpatient (AMB) | payer OTHER, SELFPAY ==
--- NOTE | 2024-11-26 11:45 | A.OFFVIS_ITS ---
Vital Signs 3 11/26/24 11:50 Height 5 ft 6 in Weight 254 lb 6 oz BMI 41.1 BP 122/75 Blood Pressure Location Lt brachial Position Sitting Pulse 74 Pulse Oximetry (%) 96 Oxygen Delivery Method Room Air Intake Visit Reasons: epigastric hernia Intake Note: Patient is seen in office for evaluation of an epigastric hernia. Pt c/o: onset 2 yrs, abdominal pain, was been seen by gastro and had MRI done, admits to bloating, nausea, pain last for over 2 weeks and sometimes up to a month, had prior gallbladder surgery in the area ref. 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 ([employer] Christina 2 [place]) As directed fluticasone furoate 200 mcg/actuation (Arnuity Ellipta) 1 inh inhalation DAILY gabapentin 100 mg PO BEDTIME glucagon (Gvoke HypoPen 2-Pack) mg subcut hydralazine 25 mg PO BID 90 days insulin aspart U-100 (Novolog FlexPen U-100 Insulin aspart) subcut insulin glargine U-300 conc (Toujeo Max U-300 SoloStar) 100 units subcut QAM lisinopril 10 mg PO DAILY lubiprostone (Amitiza) 24 mcg PO BID PRN melatonin 10 mg PO BEDTIME metoprolol succinate ER 100 mg PO DAILY nicotine 1 patch topical DAILY omeprazole 40 mg PO BID ondansetron 4 mg PO Q8H pentoxifylline ER 400 mg PO TID HPI Comments Details: 59-year-old female patient presenting with complaints of abdominal pain in the epigastric region. This has been present for least 2 years. She reports undergoing an open cholecystectomy many years ago and also underwent cardiac surgery with 2 chest tubes located in the epigastric region. She underwent an extensive workup including abdominal ultrasound, mesenteric ultrasound, CT angio of the abdomen and pelvis, as well as an abdominal MRI. The abdominal MRI did reveal a fat containing hernia in the epigastrium just below the xiphoid. She reports the pain is in this location is associated with swelling on occasion. She denies nausea, vomiting or fever. 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 Bronchial asthma Smokers' cough Smoker Vitamin D deficiency CAD (coronary artery disease) Palpitations Atherosclerotic cardiovascular disease HTN (hypertension) Diabetes mellitus, type II CAROL (obstructive sleep apnea) History of hepatitis C History of transesophageal echocardiography (KATIA) Surgical History History of esophagogastroduodenoscopy (EGD) Hx of right knee surgery Hx of left knee surgery H/O tricuspid valve repair History of colonoscopy History of cardiac cath History of cholecystectomy History of coronary artery bypass surgery History of appendectomy History of tonsillectomy History of tubal ligation Family History Father Pancreatic cancer Mother Breast cancer Diabetes Hypertension Social History Alcohol intake: never Patient Tobacco Use Status: Current everyday Tobacco user Tobacco use type: Cigarette Cigarettes Per Day: 10 Years Smoked: 44 Current occupational status: unemployed 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 Review of Systems Const All systems reviewed & are unremarkable except as noted in HPI and below Physical Exam Vital Signs: Last Vital Signs Pulse 74 11/26/24 11:50 BP 122/75 11/26/24 11:50 Pulse Ox 96 11/26/24 11:50 Oxygen Delivery Method Room Air 11/26/24 11:50 BMI result Body Mass Index 41.1 Const General: no acute distress Nutritional Appearance: well nourished Orientation/consciousness: patient oriented x3 Limitations: no limitations Resp Effort & Inspection: normal respiratory effort, no audible wheezes, no cough and no respiratory distress GI Other: Tylor incision status post open cholecystectomy. Two chest tube sites noted in the epigastrium 1 of which is in the midline which is the most tender. Patient was examined in the standing position in a palpable hernias identified which increases with Valsalva maneuvers. No other abdominal wall hernias are appreciated. Abdomen image: 2 1. Site of palpable hernia, 3 cm diameter Neuro General: patient oriented x3 Assessment & Plan Assessment & Plan (1) Incisional hernia: Code(s): K43.2 - Incisional hernia without obstruction or gangrene Category: Medical Qualifiers: Obstruction and gangrene presence: without obstruction or gangrene Q ualified Code(s): K43.2 - Incisional hernia without obstruction or gangrene Plan 59-year-old female patient presenting with complaints of a painful lump located in the epigastric region at the site of her previous chest tubes following cardiac surgery. On examination there is indeed a palpable lump which increases in size with Valsalva maneuvers measuring at least 3 cm in diameter. MRI confirms an epigastric hernia at the site of her previous incision. I recommended repair of this incisional hernia with mesh and after discussion of the procedure, risks, and alternatives, she consents to the surgery. Coding Level of Care Code New Pt Level 4 (09607) Diagnoses Incisional hernia, without obstruction or gangrene K43.2 Obstruction and gangrene presence: without obstruction or gangrene
[2024-11-26 11:50] VITALS: BP 122/75; PULSE 74; O2SAT 96; BMI 41.1
== END 2024-11-26 12:04 | disposition home or self-care (01) ==
PROVIDERS: PCP Internal Medicine; Visit Provider Surgery
DX: K43.2 Incisional hernia without obstruction or gangrene (principal)
CPT/HCPCS: 99204

== ENCOUNTER → 2024-11-26 11:41 | Outpatient (BNVA) | payer OTHER, SELFPAY | PROVIDERS: PCP Internal Medicine; Visit Provider Surgery | DX: K43.2 Incisional hernia without obstruction or gangrene (principal) | CPT/HCPCS: 99202 ==

== ENCOUNTER 2024-12-08 09:47 | Outpatient (AMB) | payer OTHER, SELFPAY ==
[2024-12-08 10:05] VITALS: BP 134/62; PULSE 66; BMI 41.4
--- NOTE | 2024-12-08 10:05 | MHC.OFFVIS ---
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: No Allergies varenicline [From CHANTIX] Allergy (Unknown, Verified 12/08/24 10:07) RASH Medication List - Last Reconciled 12/08/24 by SHANE Montemayor albuterol sulfate 90 mcg/actuation 2 puffs inhalation Q4-6H PRN albuterol sulfate mg inhalation aspirin 81 mg PO DAILY atorvastatin 40 mg PO BEDTIME duloxetine 60 mg PO DAILY empagliflozin (Jardiance) 25 mg PO DAILY flash 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 ([employer] Christina [address] [place]) As directed fluticasone furoate 200 mcg/actuation (Arnuity Ellipta) 1 inh inhalation DAILY gabapentin mg PO 3XD glucagon (Gvoke HypoPen 2-Pack) mg subcut hydralazine 25 mg PO BID 90 days insulin aspart U-100 (Novolog FlexPen U-100 Insulin aspart) subcut insulin glargine U-300 conc (Toujeo Max U-300 SoloStar) 100 units subcut QAM lisinopril 10 mg PO DAILY lubiprostone (Amitiza) 24 mcg PO BID PRN melatonin 10 mg PO BEDTIME metoprolol succinate ER 100 mg PO DAILY nicotine 1 patch topical DAILY omeprazole 40 mg PO BID ondansetron 4 mg PO Q8H pentoxifylline ER 400 mg PO TID HPI HPI Pre op clearance: Details: Lorrie is a 58-year-old female with past medical history of hypertension, hyperlipidemia, diabetes, obstructive sleep apnea, CAD with single-vessel Coronary artery bypass grafting, tricuspid valve repair who presents for follow-up, preop clearance. Today she reports that she has been having abdominal discomfort which she relates to an abdominal hernia that she has. She is hoping to have surgery on this in the near future. She does have some chronic chest discomfort which she says is unchanged since her last visit here in June. She has tenderness to palpation along the anterior chest. She says it is worse if she lays on her left side and it is more tender when she walks. In the past she was having right-sided discomfort when her blood sugars were elevated. She says she no longer has that feeling. She says her current symptoms are the same ones that she has felt over the last few years. She relates it to her large breasts. She does have some shortness of breath with activity. She continues to smoke over a half pack of cigarettes per day. No PND, orthopnea or edema. No palpitations, lightheadedness, presyncope, syncope. She has neuropathy in her lower legs. She says her diabetes has been well controlled. She has issues with her left knee and says that her kneecap pops out. She is currently wearing a brace. This limits her physical activity. She reports compliance with meds. 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 Bronchial asthma Smokers' cough Smoker Vitamin D deficiency CAD (coronary artery disease) Palpitations Atherosclerotic cardiovascular disease HTN (hypertension) Diabetes mellitus, type II CAROL (obstructive sleep apnea) History of hepatitis C History of transesophageal echocardiography (KATIA) Surgical History History of esophagogastroduodenoscopy (EGD) Hx of right knee surgery Hx of left knee surgery H/O tricuspid valve repair History of colonoscopy History of cardiac cath History of cholecystectomy History of coronary artery bypass surgery History of appendectomy History of tonsillectomy History of tubal ligation Family History Father Pancreatic cancer Mother Breast cancer Diabetes Hypertension Social History Alcohol intake: never Patient Tobacco Use Status: Current everyday Tobacco user Tobacco use type: Cigarette Cigarettes Per Day: 10 Years Smoked: 44 Current occupational status: unemployed 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 Review of Systems Const All systems reviewed & are unremarkable except as noted in HPI and below ENT Denies dizziness Card Reports chest pain (Tenderness to palpation), Denies chest pain at rest, Denies chest pain with activity, Denies rapid heart rate, Denies pedal edema, Denies edema, Denies leg edema, Denies lightheadedness, Denies palpitations, Denies dyspnea, Reports dyspnea on exertion and Denies orthopnea Resp Denies cough, Denies dyspnea and Reports dyspnea on exertion GI Details: Abdominal discomfort from hernia Denies hematochezia and Denies change in stool character Musc Denies abnormal gait, Reports limited range of motion (Issues with right knee, gives out), Denies muscle cramps, Denies muscle weakness, Denies numbness, Denies radiating pain into limb, Denies stiffness and Denies tingling Neuro Denies abnormal gait, Denies dizziness, Denies numbness and Denies tingling Endo Denies palpitations Physical Exam Vital Signs: Last Vital Signs Pulse 66 12/08/24 10:05 BP 134/62 12/08/24 10:05 BMI result Body Mass Index 41.4 Const General: cooperative, healthy appearing, comfortable and no acute distress Orientation/consciousness: patient oriented x3 Neck Neck: Yes normal visual inspection and Yes no JVD Resp Effort & Inspection: normal respiratory effort Auscultation: clear to auscultation bilaterally, no crackles, no rales, no rhonchi and no wheezes Cardio Other: Grimaces to palpation of the anterior chest, above breasts, left greater than right Jugular venous distension: no JVD Rate: regular rate Rhythm: regular rhythm Heart sounds: S1 normal heart sound present, S2 normal heart sound present, no murmurs and no rubs Neuro General: patient oriented x3 Extrem General: Yes normal to inspection and No no pedal edema Psych Appearance: grossly normal Mental Status: mental status grossly normal Speech and movement: Normal speech and movement present Office Procedures EKG Details: Today, read by me, sinus rhythm, left axis deviation, can not exclude prior anterior infarct, no significant change from prior, rate 66, QTC 427 milliseconds [id number], Complete Assessment & Plan Assessment & Plan (1) CAD (coronary artery disease): Code(s): I25.10 - Atherosclerotic heart disease of [place] coronary artery without angina pectoris Category: Medical Qualifiers: Associated angina: without angina Coronary Disease-Associated Artery/Lesion type: [place] artery [place] vs. transplanted heart: [place] heart Qualified Code(s): I25.10 - Atherosclerotic heart disease of [place] coronary artery without angina pectoris Plan: History of CAD with coronary artery bypass grafting, PAYTON to LAD in 2016 along with tricuspid valve repair. Other vessels reported as being normal at that time. Multiple cardiac risk factors including hypertension, hyperlipidemia, diabetes, obesity, smoking. Echocardiogram on 08/12/2023 showing EF 55-60%, no valve abnormalities, tricuspid valve repair noted, wall motion abnormality could not be excluded. A pharmacological nuclear stress test was done 09/11/2023 showing normal myocardial perfusion imaging, EF 67%. Today she reports anterior chest discomfort that is worse with palpation, body movements and laying on left side. She has no chest discomfort that sounds like angina. This symptom has not changed in quality or severity since her last visit June 2024. Overall is seems to be chest wall/musculoskeletal discomfort related to her very large breasts. Continue with strict risk factor modification. Instructed on complete smoking cessation. She states she will continue to try. Continue aspirin indefinitely. Continue atorvastatin with ideal LDL goal less than 70. Continue metoprolol. Signs and symptoms of angina reviewed with her. Cardiology follow-up in 6 months, sooner if needed. Emergency care if ever needed for symptoms (2) [place] of coronary artery [place]: [place] [facility] [place](s): Z95.1 - Presence of aortocoronary bypass graft Category: Medical Plan: As above (3) Chest discomfort: Code(s): R07.89 - Other chest pain Category: Medical Plan: Atypical (4) H/O tricuspid valve repair: [place] [facility] [place] Code(s): Z98.890 - Other specified postprocedural states Category: Medical Plan: Functioning normally on last echocardiogram. Will update echocardiogram as she is preop. (5) Preop cardiovascular exam: Code(s): Z01.810 - Encounter for preprocedural cardiovascular examination Category: Medical Plan: Preop for hernia repair surgery in the near future, no date yet. Will be updating echocardiogram then plan to finalize this note. Plan Time spent on chart review, documentation, interview, assessment Orders: Orders CA echo transthoracic complete Today I25.10 - Atherosclerotic heart disease of [place] coronary artery without angina pectoris, R07.89 - Other chest pain, Z95.1 - Presence of aortocoronary bypass graft, Z98.890 - Other specified postprocedural states Coding Level of Care Code Est Pt Level 4 (73510) Complex EM visit Add On G2211 Diagnoses Coronary artery disease involving [place] coronary artery of [place] heart without angina pectoris I25.10 Associated angina: without angina Coronary Disease-Associated Artery/Lesion type: [place] artery [place] vs. transplanted heart: [place] heart History of coronary artery bypass surgery Z95.1 Chest discomfort R07.89 H/O tricuspid valve repair Z98.890 Preop cardiovascular exam Z01.810 CPT Codes EKG - CPT: 90395-[id number], Complete ([id number]) Time Spent (min) 32
== END 2024-12-08 12:21 | disposition home or self-care (01) ==
PROVIDERS: PCP Internal Medicine; Visit Provider Nurse Practitioner Family
DX: I25.10 Atherosclerotic heart disease of native coronary artery without angina pectoris (principal); Z95.1 Presence of aortocoronary bypass graft; R07.89 Other chest pain; Z98.890 Other specified postprocedural states; Z01.810 Encounter for preprocedural cardiovascular examination
CPT/HCPCS: 93010; 99214; G2211

== ENCOUNTER → 2024-12-08 09:47 | Outpatient (BNVA) | payer OTHER, SELFPAY | PROVIDERS: PCP Internal Medicine; Visit Provider Nurse Practitioner Family | DX: Z01.810 Encounter for preprocedural cardiovascular examination (principal); I10 Essential (primary) hypertension; E78.5 Hyperlipidemia, unspecified; E11.9 Type 2 diabetes mellitus without complications; G47.33 Obstructive sleep apnea (adult) (pediatric); I25.10 Atherosclerotic heart disease of native coronary artery without angina pectoris; R07.89 Other chest pain; Z95.1 Presence of aortocoronary bypass graft; Z98.890 Other specified postprocedural states | CPT/HCPCS: 93005; 99212 ==

== ENCOUNTER → 2024-12-25 08:41 | Outpatient (REF) | payer OTHER, SELFPAY | LOC: HO.CARD 08:41 | PROVIDERS: PCP Internal Medicine; Visit Provider Nurse Practitioner Family | DX: R07.9 Chest pain, unspecified (principal); I25.10 Atherosclerotic heart disease of native coronary artery without angina pectoris; Z95.1 Presence of aortocoronary bypass graft ==

== ENCOUNTER → 2024-12-25 08:45 | Outpatient (BNV) | payer OTHER, SELFPAY | PROVIDERS: PCP Internal Medicine; Visit Provider Internal Medicine Cardiovascular Disease | DX: I42.2 Other hypertrophic cardiomyopathy (principal); Z95.4 Presence of other heart-valve replacement | CPT/HCPCS: 93306 ==

== ENCOUNTER 2025-03-11 09:00 | Outpatient (AMB) | payer OTHER, SELFPAY ==
[2025-03-11 09:02] VITALS: BP 142/80; PULSE 82; BMI 42.9
--- NOTE | 2025-03-11 09:02 | MHC.OFFVIS ---
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 Seat Covers Trimmer: Seat Covers Trimmer Present Allergies varenicline [From CHANTIX] Allergy (Unknown, Verified 03/11/25 09:04) RASH Medication List - Last Reconciled 03/11/25 by SHANE Montemayor albuterol sulfate 90 mcg/actuation 2 puffs inhalation Q4-6H PRN albuterol sulfate mg inhalation aspirin 81 mg PO DAILY atorvastatin 80 mg PO BEDTIME clopidogrel 75 mg PO DAILY duloxetine 60 mg PO DAILY empagliflozin (Jardiance) 25 mg PO DAILY flash 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 ([employer] Christina 2 [place]) As directed fluticasone furoate 200 mcg/actuation (Arnuity Ellipta) 1 inh inhalation DAILY gabapentin mg PO 3XD glucagon (Gvoke HypoPen 2-Pack) mg subcut insulin aspart U-100 (Novolog FlexPen U-100 Insulin aspart) subcut insulin glargine U-300 conc (Toujeo Max U-300 SoloStar) 100 units subcut QAM lubiprostone (Amitiza) 24 mcg PO BID PRN melatonin 10 mg PO BEDTIME metoprolol succinate ER 50 mg PO DAILY nicotine 1 patch topical DAILY omeprazole 40 mg PO BID ondansetron 4 mg PO Q8H pentoxifylline ER 400 mg PO TID HPI HPI s/p [facility] CVA per DC: Details: Lorrie is a 58-year-old female with past medical history of hypertension, hyperlipidemia, diabetes, obstructive sleep apnea, CAD with single-vessel Coronary artery bypass grafting, tricuspid valve repair who was recently admitted to [facility] with lightheadedness and slurred speech. She was found to have an acute CVA. During her admission she had issues with orthostatic hypotension that was treated with IV fluids and Ady stockings. Her metoprolol and hydralazine had been put on hold. Following discharge her blood pressure was more elevated and her metoprolol was restarted at half dose by her PCP. Today she reports that she has been doing well since her hospital discharge. She reports slurred speech on occasion. For the most part she has no significant residual affects from her CVA. She denies any chest discomfort at rest or with activity. She has no shortness of breath, PND, orthopnea or edema. She is wearing Ady stockings at this time. No lightheadedness, presyncope, syncope, falls. She has been taking her meds as directed. Her son is present. 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 Her hernia surgery was canceled since her hemoglobin A1c was elevated. 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 Bronchial asthma Smokers' cough Vitamin D deficiency CAD (coronary artery disease) Palpitations Atherosclerotic cardiovascular disease HTN (hypertension) Diabetes mellitus, type II CAROL (obstructive sleep apnea) History of hepatitis C History of transesophageal echocardiography (KATIA) Surgical History History of esophagogastroduodenoscopy (EGD) Hx of right knee surgery Hx of left knee surgery H/O tricuspid valve repair History of colonoscopy History of cardiac cath History of cholecystectomy History of coronary artery bypass surgery History of appendectomy History of tonsillectomy History of tubal ligation Family History Father Pancreatic cancer Mother Breast cancer Diabetes Hypertension Social History Alcohol intake: never Patient Tobacco Use Status: Current everyday Tobacco user Tobacco use type: Cigarette Cigarettes Per Day: 10 Years Smoked: 44 Current occupational status: unemployed 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 Review of Systems Const All systems reviewed & are unremarkable except as noted in HPI and below ENT Details: speech slurred at times Reports dizziness Card Denies chest pain, Denies chest pain at rest, Denies chest pain with activity, Denies rapid heart rate, Denies pedal edema, Denies edema, Denies leg edema, Denies lightheadedness, Denies palpitations, Denies dyspnea, Denies dyspnea on exertion and Denies orthopnea Resp Denies cough, Denies dyspnea and Denies dyspnea on exertion GI Denies hematochezia and Denies change in stool character Musc Denies abnormal gait, Denies limited range of motion, Denies muscle cramps, Denies muscle weakness, Denies numbness, Denies radiating pain into limb, Denies stiffness and Denies tingling Neuro Denies abnormal gait, Reports dizziness, Denies numbness and Denies tingling Endo Denies palpitations Physical Exam Vital Signs: Last Vital Signs Pulse 82 03/11/25 09:02 BP 142/80 H 03/11/25 09:02 BMI result Body Mass Index 42.9 Const General: cooperative, healthy appearing, comfortable and no acute distress Orientation/consciousness: patient oriented x3 Neck Neck: Yes normal visual inspection and Yes no JVD Resp Effort & Inspection: normal respiratory effort Auscultation: clear to auscultation bilaterally, no rales, no rhonchi and no wheezes Cardio Rate: regular rate Rhythm: regular rhythm Heart sounds: S1 normal heart sound present, S2 normal heart sound present, no murmurs and no rubs Neuro General: patient oriented x3 Extrem General: Yes normal to inspection, No no pedal edema and No calf tenderness Psych Appearance: grossly normal Mental Status: mental status grossly normal Speech and movement: Normal speech and movement present Results Reviewed Results Reviewed: Echo 12/25/24 Conclusions: - Normal left ventricular size and systolic function. The visually estimated ejection fraction is between 55-60%. - There is severe septal asymmetric hypertrophy. - Normal right ventricular cavity size. There is mild to moderately decreased right ventricular systolic function. - The patient is status post tricuspid annular ring insertion. There is no tricuspid valve regurgitation. Mean tricuspid gradient is 1 mmHg. - There is mild dilatation of the ascending aorta measuring 3.60 cm. - Prominent epicardial adipose tissue noted. MRI of the brain 02/24/2025 acute infarct involving the right basal ganglia, posterior limb of internal capsule and greer radiata, subacute 5 mm lacunar infarct in the left anterior thalamus, chronic microvascular ischemic changes in the supra tentorial and haider region Assessment & Plan Assessment & Plan (1) CVA (cerebral vascular accident): Code(s): I63.9 - Cerebral infarction, unspecified Category: Medical Plan: Recent [facility] admission for slurred speech and found to have acute CVA on MRI. He will need to review the neurology note to further evaluate cause of CVA. She has no history of atrial fibrillation and discharge summary makes no mention of AFib that admission. Will check a cardiac event monitor to evaluate for AFib. Continue aspirin and Plavix as directed by Neurology. Cardiology follow-up in 2-3 months, sooner if needed (2) CAD (coronary artery disease): Comment: follows w/HCS Code(s): I25.10 - Atherosclerotic heart disease of sun'aq coronary artery without angina pectoris Category: Medical Qualifiers: Associated angina: without angina Coronary Disease-Associated Artery/Lesion type: sun'aq artery [place] vs. transplanted heart: sun'aq heart Qualified Code(s): I25.10 - Atherosclerotic heart disease of sun'aq coronary artery without angina pectoris Plan: History of CAD with coronary artery bypass grafting, PAYTON to LAD in 2016 along with tricuspid valve repair. Other vessels reported as being normal at that time. Multiple cardiac risk factors including hypertension, hyperlipidemia, diabetes, obesity, smoking. A pharmacological nuclear stress test was done 09/11/2023 showing normal myocardial perfusion imaging, EF 67%. Recent echo showing normal EF and no regional wall motion abnormality. No reports of anginal sounding symptoms. Continue with strict risk factor modification. Instructed on complete smoking cessation. She states she will continue to try. Continue aspirin indefinitely. Continue atorvastatin with ideal LDL goal less than 70. Continue metoprolol. Signs and symptoms of angina reviewed with her. (3) History of coronary artery bypass surgery: Comment: 2016 - [facility] Code(s): Z95.1 - Presence of aortocoronary bypass graft Category: Surgical Plan: As above (4) H/O tricuspid valve repair: Comment: 2016 - [facility] Code(s): Z98.890 - Other specified postprocedural states Category: Surgical Plan: Functioning normally on recent echocardiogram. (5) Hospital discharge follow-up: Code(s): Z09 - Encounter for follow-up examination after completed treatment for conditions other than malignant neoplasm Category: Medical Plan: [facility] discharge reviewed Plan Time spent on chart review, documentation, interview, assessment Orders: Orders ECG 30 day event monitor Today I63.9 - Cerebral infarction, unspecified, R00.2 - Palpitations Coding Level of Care Code Est Pt Level 4 (09695) Complex EM visit Add On G2211 Diagnoses CVA (cerebral vascular accident) I63.9 Coronary artery disease involving sun'aq coronary artery of sun'aq heart without angina pectoris I25.10 Associated angina: without angina Coronary Disease-Associated Artery/Lesion type: sun'aq artery [place] vs. transplanted heart: sun'aq heart History of coronary artery bypass surgery Z95.1 H/O tricuspid valve repair Z98.890 Hospital discharge follow-up Z09 Time Spent (min) 30
--- OUTSIDE RECORDS SUMMARY | 2025-03-11 09:40 | XMS_ITS | Clinical Summary ---
Author Organization [facility], Address [address] [place] [address] [place] [address] Phone Care Team Providers Care Home Economist Consumer Service Name Role Phone Shania Gonzales MD Primary Care Provider [phone] Allergies Active Allergy Reactions Criticality Noted Date Comments Varenicline Other (see comments) 10/26/2024 Medications Aspirin Low Dose 81 MG EC tablet Take 81 mg by mouth 1 (one) time each day Active atorvastatin (LIPITOR) 40 MG tablet Take 40 mg by mouth 1 (one) time each day 4 Active Continuous Glucose Sensor (FreeStyle Christina 2 Sensor) [facility] 4 Active DULoxetine (CYMBALTA) [address] capsule 4 Active Jardiance 25 MG tablet 4 Active gabapentin (NEURONTIN) 300 MG capsule Take 300 mg by mouth in the morning and 300 mg at noon and 300 mg in the evening. 4 Active Gvoke HypoPen 2-Pack 1 MG/0.2ML solution auto-injector PLEASE SEE ATTACHED FOR DETAILED DIRECTIONS 4 Active NovoLOG FLEXPEN 100 UNIT/ML injection 4 Active Toujeo Max SoloStar 300 UNIT/ML solution pen-injector 4 Active meclizine (ANTIVERT) 25 MG tablet TAKE 1 TABLET BY MOUTH 3 TIMES A DAY NEEDED FOR VERTIGO 4 Active metoprolol succinate XL (TOPROL-XL) 100 MG 24 hr tablet Take 100 mg by mouth 1 (one) time each day Active omeprazole (PriLOSEC) [address] capsule Take 40 mg by mouth Active sucralfate (CARAFATE) 1 GM/10ML suspension TAKE 10 ML BY MOUTH 3 TIMES A DAY BEFORE MEALS AND BEDTIME 4 Active losartan (Cozaar) 100 MG tablet Take 1 tablet (100 mg total) by mouth 1 (one) time each day 30 tablet 11 5 01/28/20 26 Active Active Problems Problem Noted Date Diagnosed Date Disorder of kidney and/or ureter 10/26/2024 Diabetes mellitus 10/26/2024 Hypertension 10/26/2024 Encounters Date Type Department Care Team Description 01/27/2025 4:30 PM EDT Office Visit [facility] [address] [place] [phone] Yves Lim MD 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 (HCC) (Primary Dx) 12/29/2024 Office Communication [facility] [address] [place] [phone] Sri Moreno from Last 3 Months Family History Medical History Relation Comments Diabetes Brother Hypertension Brother Cancer Mother Breast Cancer Diabetes Mother Hypertension Mother Diabetes Sibling 1 Hypertension Sibling 2 Diabetes Sister Hypertension Sister Relation Status Comments Brother Father Mother Alive Sibling 1 Sibling 2 Sister Social History Tobacco Use Types Packs/Day Years Used Date Smoking Tobacco: Every Day Cigarettes 1 30 Smokeless Tobacco: Never Tobacco Cessation:Ready to Q uit: Not Asked; Counseling Given: Not Answered Comments:Started at a very young age Alcohol Use Standard Drinks/Week Comments No 0 (1 standard drink = 0.6 oz pur e alcohol) Comments Unknown Sex and Gender Information Value Date Recorded Sex Assigned at Not on file Legal Sex Female 5:11 PM EST Gender Identity Not on file Sexual Orientation Not on file Plan of Treatment Upcoming Encounters Date Type Department Care Team (Late st Contact Info) Description 07/26/2025 2:15 PM EDT Office Visit [facility] [address] [place] [address] Yves Lim MD [address] [place] [address] Health Maintenance Due Date Last Done Comments Breast Cancer Screening 1965 Hepatitis B Vaccine (1 of 3 - 19+ 3-dose series) 1984 Colorectal Cancer Screening: Annual FOBT 2014 Colorectal Cancer Screening: Colonoscopy 2014 Colorectal Cancer Screening: Sigmoidoscopy 2014 Pneumococcal Vaccine: 50+ Ye ars (3 of 3 - PCV) 04/28/2019 04/28/2018, 08/18/2009 Diabetes: Ophthalmology Exam 10/26/2024 Diabetes: Pedal Pulse Checked 10/26/2024 Diabetes: Sensory Foot Exam 10/26/2024 Diabetes: Visual Foot Exam 10/26/2024 Diabetes: Hemoglobin A1C 11/13/2024 08/14/2024 Influenza Vaccine (Season Ended) 2025 08/18/20 23, 08/19/2020 Pneumococcal Vaccine: Peds ( 0 to 5 Years) and At-Risk Patients (6 to 49 Years) Discontinued 04/28/2018, 08/18/2009 Procedures Procedure Name Priority Date/Time Associated Diagnosis Comments URINE ALBUMIN / CREATININE RATIO Routine 01/05/2025 11:31 AM EST 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 (HCC) URINALYSIS WITH MICROSCOPIC Routine 01/05/2025 11:31 AM EST 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 (HCC) MICROSCOPIC EXAMINATION - DO NOT USE Routine 01/05/2025 11:31 AM EST from Last 3 Months Results * Microscopic Examination (01/05/2025 11:31 AM EST) WBC, Urine 0-5 0 - 5 /hpf [facility] RBC, Urine 0-2 0 - 2 /hpf [facility] Squamous Epithelial, Urine 0-10 0 - 10 /hpf [facility] Casts None seen None seen /lpf [facility] Bacteria, Urine Few None seen/Few [facility] 01/05/2025 11:3 1 AM EST 01/05/2025 Yves Lim MD LAB MICROBIOLOGY - GENERAL ORD ERABLES Final Result Performing Organization Address City/[facility]/ZIP Co de Phone Number [facility] [address] [place] [address] * (ABNORMAL) Urine Albumin / Creatinine Ratio (01/05/2025 11:31 AM EST) Creatinine, Ur 65.5 Not Estab. mg/dL [facility] Albumin, Urine 1,623.1 Not Estab. ug/mL [facility] Comment: Results confirmed on dilution. Albumin/Creatin ine Ratio 2,478(H) 0 - 29 mg/g creat [facility] Comment: ? Normal: ?0 - ??29 ? Moderately increased: 30 - 300 ? Severely increased: ? >300 Urine (Urine, Clean Catch) 01/05/2025 11:31 AM EST 01/05/2025 Yves Lim MD LAB URINE ORDERABLES Final Res ult Performing Organization Address City/[facility]/ZIP Co de Phone Number [facility] [address] [place] [address] * (ABNORMAL) Urinalysis with microscopic (01/05/2025 11:31 AM EST) Specific [place], Urine 1.027 1.005 - 1.030 [facility] [phone] pH Urine 6.0 5.0 - 7.5 [facility] [phone] Color, Urine Yellow Yellow [facility] Appearance Urine Cloudy(A) Clear [facility] [place] WBC Esterase Urine Negative Negative [facility] Protein, Ur 3+(A) Negative/Tra ce [facility] [phone] Glucose, Ur 3+(A) Negative [facility] Ketones, Urine Negative Negative [facility] [place] Blood Urine Negative Negative [facility] Bilirubin Urine Negative Negative [facility] [place] Urobilinogen Urine 0.2 0.2 - 1.0 mg/dL [facility] Nitrite, Urine Negative Negative [facility] [place] Microscopic Examination See below: [facility] Comment:Microscopic was vazquez cated and was performed. Urine (Urine, Clean Catch) 01/05/2025 11:31 AM EST 01/05/2025 us Yves Lim MD LAB URINE ORDERABLES Final Res ult [facility] [address] [place] [address] from Last 3 Months Insurance [facility] [employer] Dual SNP ([id number]) [address] [id number] [facility]ly [facility] Dual SNP ([id number]) [address] [address] Care Teams Home Economist Consumer Service Relationship Specialty Start Date End Date Shania Gonzales MD [address] [facility] [place] PCP - General Internal Medicine 06/29/24
--- OUTSIDE RECORDS SUMMARY | 2025-03-11 09:40 | XMS_ITS | Clinical Summary ---
[facility] Organization [facility] Address [address] [place] [address] Care Team Providers Care Hot Dog Vender Name Role Phone Unavailable Primary Care Provider Unavailabl e Surgical History Surgery Date Site/Laterality Comments CHOLECYSTECTOMY PROCEDURE: HISTORICAL CHOLECYSTECTOMY APPENDECTOMY PROCEDURE: HISTORICAL APPENDECTOMY ESOPHAGOGASTRODUODENOSCOPY 12/11/07 PROCEDURE: OK EGD TRANSORAL BIOPSY SINGLE/MULTIPLE; COMMENT: Erosive antral gastritis-bx:erosive gastritis COLONOSCOPY 03/31/09 PROCEDURE: OK COLONOSCOPY STOMA DX INCLUDING COLLJ SPEC SPX; COMMENT: Up to cecum, good preparation, normal colon exam, small skin tag in anus. TUBAL LIGATION PROCEDURE: HISTORICAL TUBAL LIGATION HYSTERECTOMY PROCEDURE: HISTORICAL HYSTERECTOMY Medical History Medical History Date Comments Acute hepatitis C without me ntion of hepatic coma(070.51) DX:Acute hepatitis C without mention of hepatic coma(070.51) Depressive disorder, not els ewhere classified DX:Depressive disorder, not elsewhere classified Tobacco use disorder 08/12/2008 DX:Tobacco use disorder Proteinuria 04/14/2009 DX:Proteinuria Unspecified asthma(493.90) 08/05/2006 DX:Un specified asthma(493.90) Diabetes mellitus type II, uncontrolled 08/12/2008 DX:Diabetes mellitus type II , uncontrolled Esophageal reflux DX:Esophageal reflux Essential hypertension, benign D X:Essential hypertension, benign Unspecified glaucoma(365.9) DX:U nspecified glaucoma(365.9) Diabetic neuropathy (CMS/HCC V24, CMS/HCC V28) 12/28/2010 DX:Diabetic neuropathy (HCC) Morbid obesity (CMS/HCC V24, CMS/HCC V28) 04/30/2011 DX:Morbid obesity (HCC) GERD (gastroesophageal reflu x disease) 10/13/2012 DX:GERD (gastroesophageal re flux disease) Family History Medical History Relation Name Comments Cataracts Father Colon cancer Maternal Grandfather Diabetes Mother hypertension, c ataract, breast cancer Diabetes Sister Lung cancer Uncle 1 Relation Name Status Comments Father Maternal Grandfather Mother Sister Uncle 1 Uncle 2 Social History Tobacco Use Types Packs/Day Years Used Date Smoking Tobacco: Every Day Cigarettes Smokeless Tobacco: Never Alcohol Use Standard Drinks/Week Comments No 0 (1 standard drink = 0.6 oz pur e alcohol) Comments Unknown Sex and Gender Information Value Date Recorded Sex Assigned at Not on file Legal Sex Female 7:02 AM EST Gender Identity Not on file Sexual Orientation Not on file Obstetrics History Plan of Treatment Health Maintenance Due Date Last Done Comments Diabetes: Annual GFR (Glomerular Filtration Rate) 1965 Diabetes: Annual Foot Exam 1975 Diabetes: Annual Retina Eye Exam 1975 Hepatitis A Vaccines (1 of 2 - Risk 2-dose series) 1984 Hepatitis B Vaccines (1 of 3 - 19+ 3-dose series) 1984 Cervical Cancer Screening: P ap Smear 1986 Pneumococcal Vaccine: 50+ Years (2 of 2 - PCV) 08/18/2010 08/18/2009 Pneumococcal Vaccine: Pediatrics (0 to 5 Years) and At-Risk Patients (6 to 64 Years) (2 of 2 - PCV) 08/18/2010 08/18/2009 Zoster Vaccines (1 of 2) 2015 DTaP,Tdap,and Td Vaccines (3 - Td or Tdap) 09/05/2020 09/05/2010, 08/05/2006 Cholesterol Screening (Lipid Panel) 10/31/2022 Colorectal Cancer Screening: Colonoscopy 10/31/2022 Depression Screening 10/31/2022 Diabetes: Annual Urine Albumin-Creatinine Ratio (uACR) 10/31/2022 Diabetes: Blood Sugar Contro l Test (HGBA1C) 10/31/2022 HIV Screening 10/31/2022 Hepatitis C Screening 10/31/2022 Hypertension/CHF/CAD Annual BMP Blood Test 10/31/2022 Social Influencers of Health Screening 10/31/2022 Breast Cancer Screening 12/15/2022 12/15/19 21, 12/09/2019 COVID-19 Vaccine (1 - 2023-2 5 season) 2024 Influenza Vaccine (Season Ended) 2025 08/18/2009, 09/22/2008, 09/23/2007 RSV Immunization Adult Patients (1 - 1-dose 75+ series) 2040 HIB Vaccines Aged Out No longer eligi ble based on patient's age to complete this topic HPV Vaccines Aged Out No longer eligi ble based on patient's age to complete this topic IPV Vaccines Aged Out No longer eligi ble based on patient's age to complete this topic MMR Vaccines Aged Out No longer eligi ble based on patient's age to complete this topic Meningococcal ACWY Vaccine Aged Out N o longer eligible based on patient's age to complete this topic Meningococcal B Vaccine Aged Out No l onger eligible based on patient's age to complete this topic RSV Immunization Patients Under 20 months Aged Out No longer eligible b ased on patient's age to complete this topic Varicella Vaccines Aged Out No longer eligible based on patient's age to complete this topic Procedures Procedure Name Priority Date/Time Associated Diagnosis Comments [facility] Routine 12/15/2020 4:05 PM EST Encounter for screening mammogram for malignant neoplasm of breast from Last 3 Months or Most Recently Relevant to Health Maintenance Results * [facility] (12/15/2020 4:05 PM EST) Anatomical Region Laterality Modality Mammography 12/15/2020 2:31 PM EST Narrative 12/15/2020 4:05 PM EST [facility] Diagnostic Imaging Department [address] [place] [id number] Patient: ??CHRISTOS,LORRIE ?/Age/Sex: 1965 - 55 - F Unit#: ??[id number] ? Location/Status: ??SPDIMAM/REG CLI ? Mnemonic/Ordering Site: ??DIGSC/SPMAM Ordering Physician: ??VENKATESH ORR MD [facility] - 12/15/20 - 1456 EXAM: [facility] EXAM DATE AND TIME: 12/15/2020 2:57 PM HISTORY: ??Screening. Mother had breast carcinoma at age 70. COMPARISON: ??12/09/19, 09/27/16, 06/16/09 TECHNIQUE: CC and MLO views of both breasts were obtained using full field digital mammography. Bilateral digital breast tomosynthesis was performed in the MLO projection. Computer aided detection with the Jolicloud.2-CardioDx was employed. TISSUE DENSITY: a. The breasts are almost entirely fatty. FINDINGS: No suspicious masses, grouped microcalcifications, or areas of architectural distortion are seen. Benign rim calcifications are again noted. The skin and vascularity are unremarkable. IMPRESSION: Stable mammographic appearance of the breasts. ??No evidence of malignancy is seen. A negative mammogram in the presence of a clinically suspicious palpable abnormality does not preclude the possibility of malignancy or alter the indications for biopsy. BI-RADS: ??Category 2: Benign RECOMMENDATION(S): 1: Routine screening mammogram BILATERAL in 1 year. [address]241, 42745 3342F, 7025F Dictating Physician: ??GELY LINDSAY MD Electronically Signed by: ??GELY LINDSAY MD Dic Date/Time: ??12/15/20 1608 Sign date/Time: ??12/15/20 1607 Procedure Note Gely Lindsay MD - 11/06/2022 [facility] Diagnostic Imaging Department [address] [place] [address] Patient: LORRIE RAHMAN /Age/Sex: 1965 - 55 - F Unit#: [id number] Location/Status: SPDIMA/REG CLI Mnemonic/Ordering Site: [facility] Ordering Physician: VENKATESH ORR MD [facility] Screening Digital - 12/15/20 - 1456 EXAM: [facility] Screening Digital EXAM DATE AND TIME: 12/15/2020 2:57 PM HISTORY: Screening. Mother had breast carcinoma at age 70. COMPARISON: 12/09/19, 09/27/16, 06/16/09 TECHNIQUE: CC and MLO views of both breasts were obtained using fullfield digital mammography. Bilateral digital breast tomosynthesis was performedin the MLO projection. Computer aided detection with the Infantium 7.2-Hwas employed. TISSUE DENSITY: a. The breasts are almost entirely fatty. FINDINGS: No suspicious masses, grouped microcalcifications, or areas ofarchitectural distortion are seen. Benign rim calcifications are again noted. The skinand vascularity are unremarkable. IMPRESSION: Stable mammographic appearance of the breasts. No evidence of malignancyis seen. A negative mammogram in the presence of a clinically suspicious palpable abnormality does not preclude the possibility of malignancy or alter the indications for biopsy. BI-RADS: Category 2: Benign RECOMMENDATION(S): 1: Routine screening mammogram BILATERAL in 1 year. 78671, 15281 3342F, 7025F Dictating Physician: GELY LINDSAY MD Electronically Signed by: GELY LINDSAY MD Dic Date/Time: 12/15/20 1604 Sign date/Time: 12/15/20 9635 us Venkatesh Orr MD IMG BI PROCEDURES Final Re sult from Last 3 Months or Most Recently Relevant to Health Maintenance
--- OUTSIDE RECORDS SUMMARY | 2025-03-11 09:40 | XMS_ITS | Encounter Summary ---
Author Organization [facility] Address [address] [place] [address] Phone Care Team Providers Care Bunch Maker Hand Name Role Phone Shania Gonzales MD Primary Care Provider [phone] Encounter Details Date Type Department Care Team (Late st Contact Info) Description 06/29/2024 Documentation Only [facility] [address] [place] [address] [place], [place] [address] [place] [address] Social History Tobacco Use Types Packs/Day Years Used Date Smoking Tobacco: Every Day Alcohol Use Standard Drinks/Week Comments No 0 (1 standard drink = 0.6 oz pur e alcohol) Comments Unknown Sex and Gender Information Value Date Recorded Sex Assigned at Not on file Legal Sex Female 5:11 PM EST Gender Identity Not on file Sexual Orientation Not on file documented as of this encounter Plan of Treatment Upcoming Encounters Date Type Department Care Team (Late Contact Info) Description 07/26/2025 2:15 PM EDT Office Visit [facility] [address] [place] [address] Yves Lim MD [address] [place] [address] [place] [address] documented as of this encounter Visit Diagnoses Not on filedocumented in this encounter Care Teams Bunch Maker Hand Relationship Specialty Start Date End Date Shania Gonzales MD [address] [place], [place] PCP - General Internal Medicine 06/29/24 documented as of this encounter
== END 2025-03-11 09:50 | disposition home or self-care (01) ==
LOC: HO.HCS 09:01
PROVIDERS: PCP Internal Medicine; Visit Provider Nurse Practitioner Family
DX: I63.9 Cerebral infarction, unspecified (principal); I25.10 Atherosclerotic heart disease of native coronary artery without angina pectoris; Z95.1 Presence of aortocoronary bypass graft; Z98.890 Other specified postprocedural states; Z09 Encounter for follow-up examination after completed treatment for conditions other than malignant neoplasm
CPT/HCPCS: 99214; G2211

== ENCOUNTER → 2025-03-11 09:00 | Outpatient (BNVA) | payer OTHER, SELFPAY | PROVIDERS: PCP Internal Medicine; Visit Provider Nurse Practitioner Family | DX: I10 Essential (primary) hypertension (principal); I25.10 Atherosclerotic heart disease of native coronary artery without angina pectoris; R00.2 Palpitations; Z09 Encounter for follow-up examination after completed treatment for conditions other than malignant neoplasm; Z95.1 Presence of aortocoronary bypass graft; Z95.2 Presence of prosthetic heart valve; Z86.73 Personal history of transient ischemic attack (TIA), and cerebral infarction without residual deficits; Z98.890 Other specified postprocedural states | CPT/HCPCS: 99212 ==